=== PATIENT | male | born 1935 | race Caucasian/White ===

== ENCOUNTER 2018-11-18 21:08 | Inpatient (IN) | payer MEDICARE, BC ==
[~2018-11-18] VITALS: Ht 188 cm; Wt 117.9 kg
[2018-11-18 21:30] VITALS: BP 134/72
[2018-11-18 22:08] VITALS: BP 145/75
[2018-11-18 22:22] LABS: BASOPHILS 0.3 % (0-2); HEMATOCRIT 39.6 % (42.0-54.0); HEMOGLOBIN 13.1 g/dL (13.5-17.5); IMMATURE GRANULOCYTES 0.3 % (0-5); LYMPHOCYTES 16.5 % (15-50); MCHC 33.1 g/dL (31.0-37.0); MCV 93.6 fL (80.0-100.0); MEAN PLATELET VOLUME 10.8 fL (7.4-10.4); MONOCYTES 6.2 % (2-11); NEUTROPHILS 74.7 % (40-80); PLATELET COUNT 188 10x3/uL (130-400); RBC 4.23 10x6/uL (4.20-6.10); RDW 13.6 % (11.5-14.5); WBC 11.7 10x3/uL (4.8-10.8)
[2018-11-18 22:31] LABS: APPEARANCE CLEAR (CLEAR); BILIRUBIN NEGATIVE (NEGATIVE); COLOR YELLOW (YELLOW); GLUCOSE 50 mg/dL (NEGATIVE); KETONE NEGATIVE (NEGATIVE); NITRITE NEGATIVE (NEGATIVE); PROTEIN NEGATIVE (NEGATIVE); SPECIFIC GRAVITY 1.015 (1.005-1.020); UROBILINOGEN NORMAL (NORMAL)
[2018-11-18 22:35] LABS: ALBUMIN 3.7 g/dL (3.4-5.0); ANION GAP 13.5 mmol/L (8-16); BILIRUBIN - TOTAL 0.48 mg/dL (0.2-1.3); CALCIUM 8.9 mg/dL (8.5-10.1); CARBON DIOXIDE 28.2 mmol/L (21.0-32.0); CREATININE - SERUM 1.7 mg/dL (0.6-1.3); POTASSIUM - SERUM 4.7 mmol/L (3.5-5.1)
[2018-11-18 22:53] LABS: TROPONIN-I 0.104 ng/mL (0.000-0.060)
[2018-11-18 23:30] VITALS: BP 134/65
[2018-11-19] VITALS (8 sets, daily range): BP systolic 104–141; BP diastolic 54–87; BMI 33.4
--- NOTE | 2018-11-19 02:37 | NUR ---
TP RESTING NO DISTRESS OR PAIN NOTED. EMPTIED 200CC OF URINE FROM URINAL. BED LOW LOCKED POSITON, SIDE RAILS UP TIMES TWO, CALL LIGHT WITHIN REACH. WILL CONTINUE TO MONITOR FOR CHANGES.
--- NOTE | 2018-11-19 03:16 | NUR ---
PT LYING IN BED RESTING QUIETLY. NO COMPLAINTS AT THIS TIME, WILL CONTINUE TO MONITOR
--- NOTE | 2018-11-19 05:55 | NUR ---
400CC OF URINE OUTPUT NOTED AT THIS TIME. PT ALERT AND ORIENTED. NO CHANGES TO RESP STATUS. IV SITE WNL. PT HAS NO COMPLAINTS AT THIS TIME. WILL MONITOR
--- NOTE | 2018-11-19 11:46 | NUR ---
HALL CLERK AT BEDSIDE, ECHO COMPLETED
[2018-11-19 12:06] LABS: % SATURATION 16 % (15-55); IRON 49 ug/dl (35-150); TOTAL IRON BIND CAPACITY 304 ug/dl (260-445); UNSAT IRON BIND CAPACITY 255 ug/dl (150-375)
[2018-11-19 12:12] LABS: CKMB 2.9 U/L (0.0-3.6); CREATINE KINASE 43 UL (21-232)
[2018-11-19 12:13] LABS: TROPONIN-I 0.353 ng/mL (0.000-0.060)
--- NOTE | 2018-11-19 14:41 | MORECARE ---
CASE MANAGEMENT DISCHARGE SUMMARY PATIENT: ANITA VALADEZ UNIT: [id number] ADM DATE: 11/19/18 AGE: 82 : 33 SEX: M ROOM/BED: D.E14 AUTHOR: KATRINA HINES PHYSICIAN: REFERRING PHYSICIAN: SHANNAN NUR MD DATE OF SERVICE: 11/19/18 Discharge Plan Patient Name: ANITA VALADEZ Facility: [facility]:[place] : 1935 Planned Disposition: Anticipated Discharge Date: Discharge Date: Expected LOS: Initial Reviewer: [email or web address] Initial Review Date: 11/19/2018 Generated: 11/19/18 3:40 pm Comments DCP- Discharge Planning Updated by [email or web address]: Kalyn Armstrong on 11/19/18 1:[address] CM met with patient in ER to discuss dc needs/plans. Multiple family members in room and patient gives permission to speak in front of them. Patient lives @[facility] in a [place], alone. Reports that he is independent with his ADL's. PCP: None--would like to use Dr. Hameed, when he is available. [facility] States he just obtained Medicare Part D and would like to use [facility] for emergent meds. DME: walker Quad cane, maryb lela. Reports he does not use DME. Denies use of community services. Denies HHS:. States he drives his car to the dining room. Emergency Contact: Natasha Rogers (DTR) [phone], Devang Valadez (son) [phone]. Patient states he plans to return to [facility] and is unsure if he will require additional services upon discharge. Denies being hospitalized within the past 30 days. CM will assist as needed with dc needs/plans. Kalyn Armstrong RN, CM Patient Name: ANITA VALADEZ Page [id number] at 1441 All edits/amendments must be made on the electronic document DICTATION DATE: 11/19/18 1440 SPANISH SPEAKING BABYSITTER: LUZMA 11/19/18 1440 RPT#: [id number] DC DATE: STATUS: ADM IN [facility] [address] [place] [address] END OF REPORT
--- NOTE | 2018-11-19 14:51 | MORECARE ---
CASE MANAGEMENT DISCHARGE SUMMARY PATIENT: ANITA VALADEZ UNIT: [id number] ADM DATE: 11/19/18 AGE: 82 : 33 SEX: M ROOM/BED: D.E14 AUTHOR: KATRINA HINES PHYSICIAN: REFERRING PHYSICIAN: SHANNAN NUR MD DATE OF SERVICE: 11/19/18 Discharge Plan Patient Name: ANITA VALADEZ Facility: [facility]:[place] : 1935 Planned Disposition: Anticipated Discharge Date: Discharge Date: Expected LOS: Initial Reviewer: [email or web address] Initial Review Date: 11/19/2018 Generated: 11/19/18 3:51 pm Comments DCP- Discharge Planning Updated by [email or web address]: Kalyn Armstrong on 11/19/18 1:[address] CM met with patient in ER to discuss dc needs/plans. Multiple family members in room and patient gives permission to speak in front of them. Patient lives @[facility] in a [place], alone. Reports that he is independent with his ADL's. PCP: None--would like to use Dr. Hameed, when he is available. [facility] States he just obtained Medicare Part D and would like to use [facility] for emergent meds. DME: walker, Quad cane, grab bars. Reports he does not use DME. Denies use of community services. Denies HHS:. States he drives his car to the dining room. Emergency Contact: Natasha Rogers (DTR) [phone], Devang Valadez (son) [phone]. Patient states he plans to return to [facility] and is unsure if he will require additional services upon discharge. Denies being hospitalized within the past 30 days. CM will assist as needed with dc needs/plans. Kalyn Armstrong RN, CM DCPIA - Discharge Planning Initial Assessment Updated by [email or web address]: Kalyn Armstrong on 11/19/18 2:45 pm * Is the patient Alert and Oriented? Yes * How many steps to enter\exit or inside your home? * [facility] would like to use Dr. Hameed when available. * [facility] * Preadmission Environment Assisted Living * Facility Name [place] [facility], cottage * ADLs Independent * Equipment Cane Grab Bars Walker * Other Equipment NA * List name and contact numbers for known caregivers / representatives who currently or will assist patient after discharge: Natasha Rogers (Dtr) [phone] im Jn (son) [phone] * Community resources currently utilized None * Please name any agencies selected above. NA * Additional services required to return to the preadmission environment? No * Can the patient safely return to the preadmission environment? Yes * Has this patient been hospitalized within the prior 30 days at any hospital? No Last DP export: 11/19/18 1:40 p Patient Name: ANITA VALADEZ Page [id number] at 1451 All edits/amendments must be made on the electronic document DICTATION DATE: 11/19/181450 CARE TEAM COORDINATOR SCHEDULER: LUZMA 11/19/181450 RPT#: [id number] DC DATE: STATUS: ADM IN [facility] [address] [place] [address] END OF REPORT
--- NOTE | 2018-11-19 16:39 | EC ---
PATIENT:ANITA VALADEZ DATE OF SERVICE: 11/19/18 SEX: M MEDICAL RECORD: [id number] DATE OF : 31 LOCATION:[facility] AGE OF PATIENT: 82 ADMISSION DATE: 11/19/18 REFERRING PHYSICIAN: INTERPRETING PHYSICIAN: BETZAIDA STEVENS MD ECHOCARDIOGRAM REPORT ECHO CHARGES 4 ECHO COMPLETE Date: 11/19/18 CLINICAL DIAGNOSIS: CHF - H/O AVR ECHOCARDIOGRAPHIC MEASUREMENTS (adult normal given) AC root (d.<3.7cm) 2.7 cm LV Septum d (<1.2 cm> 1.3 cm Valve Excursion 0.8 cm LV Septum (systole) 2.0 cm Left Atria (s.<4.0cm> 4.4 cm LVPW d(<1.2cm) 1.2 cm RV (d.<2.3cm) 3.0 cm LVPW (sytole) 1.8 cm LV diastole(<5.6CM) 4.2 cm MV E-F(>70mm/sec) cm LV systole 2.1 cm LVOT Diameter 1.9 cm MV exc.(>10mm) cm Est.ejection fraction (50-75%) % DOPPLER: LVIT cm/sec A 163 cm/sec E 83.0 cm/sec LA cm/sec RVSP 24.0 mmHg LVOT 132 cm/sec AOP1/2T m/s Asc. Ao 203 cm/sec RVOT 63.0 cm/sec RA cm/sec PA 97.0 cm/sec AV Gradient Peak 16.4 mmHg AV Mean 7.0 mmHg AV Area 1.7 cm MV Gradient Peak 9.3 mmHg MV Mean 3.2 mmHg MV Area cm COMMENTS: Field Laboratory Operator: Lori BANSAL Slunk Skin Curer: 1 Dr. Stevens TAPE# PACS Pericardial Effusion N DATE OF SERVICE: 11/19/2018 FINDINGS: 1. Left ventricular chamber size is within normal limits. Left ventricular systolic function is normal. Overall ejection fraction is estimated at 65%. 2. Left atrium is enlarged at 4.4 cm. Right atrium and right ventricle chamber sizes are as well mildly dilated. 3. Valvular structures: Aortic valve is replaced with a tissue prosthesis with normal structure and function in this position. The remaining valvular structures have normal structure and motion. ECHOCARDIOGRAM REPORT [id number] ANITA VALADEZ 4. Doppler interrogation reveals no significant valvular insufficiency or stenosis. Pulmonary systolic pressure is estimated at 24 mmHg. 5. No evidence of pericardial effusion or left ventricular thrombus. TRANSINT:[id number] Voice Confirmation ID: [id number] DOCUMENT ID: [id number] BETZAIDA STEVENS MD at 1639 CC: [id number] DICTATION DATE: 11/19/18 1230 LINE MAINTENANCE: 11/19/18 1425 ADM IN [place] [id number] [place] [id number]
--- NOTE | 2018-11-19 19:20 | NUR ---
AWAKE AND ALERT OX3....SRX2 WITH BED IN LOW POSITION..CALL LIGHT IN PLACE DENIES CP DENIES ANY PAIN NO EDEMA NOTED IN ANY EXTREMITY WITH LCTA SLTY DEMINISHED IN LOWER BASES. BED REST CONFIRMED WITH PT AND URINAL USED URINE IS SLTY DARK.
--- NOTE | 2018-11-19 19:44 | NUR ---
PT SITTING UP ON THE SIDE OF THE BED. NO S/S OF ACUTE DISTRESS. CL IN PLACE.
--- NOTE | 2018-11-19 21:08 | NUR ---
ORDER FOR SCDs BILAT CONFIRED WITH CHARGE NURSE TO NOT PUT ON CURRENT LEG WITH ACTIVE DVT
[2018-11-19] MEDS ORDERED: NOVOLOG100 UNIT/1 SQ (22:04)
[2018-11-19] MEDS ORDERED: OMEPRAZOLE20 M1 PO (22:10)
[2018-11-19] MEDS ORDERED: PRINIVIL20 MG PO (22:11)
[2018-11-19] MEDS ORDERED: LIPITOR10 MG PO (22:12)
[2018-11-19] MEDS ORDERED: TRICOR48 MG PO (22:13)
[2018-11-19] MEDS ORDERED: NEURONTIN 300300 MG PO (22:14)
[2018-11-19] MEDS ORDERED: BAYER CHEWABLE81 MG PO (22:15)
[2018-11-19] MEDS ORDERED: VITAMIN D2000 UNIT PO (22:16)
[2018-11-19] MEDS ORDERED: VITAMIN B-121000 MCG PO (22:17)
[2018-11-19] MEDS ORDERED: SOLIQUA 100 UNIT3 ML SQ (22:37)
[2018-11-20] VITALS (7 sets, daily range): BP systolic 100–132; BP diastolic 59–80; BMI 33.4
--- NOTE | 2018-11-20 00:30 | NUR ---
AROUSES AND DENIES NEEDS BED LOW WITH SRX2 AND CALL LIGHT IN REACH
--- NOTE | 2018-11-20 04:28 | NUR ---
RESTING IN BED RESP UNLABORED NO APPARENT DISTRESS CALL LIGHT IN REACH
[2018-11-20 05:05] LABS: BASOPHILS 0.1 % (0-2); EOSINOPHILS 0.8 % (0-7); HEMATOCRIT 35.7 % (42.0-54.0); HEMOGLOBIN 11.9 g/dL (13.5-17.5); IMMATURE GRANULOCYTES 0.2 % (0-5); LYMPHOCYTES 22.9 % (15-50); MCH 30.4 pg (26.0-34.0); MCHC 33.3 g/dL (31.0-37.0); MONOCYTES 5.6 % (2-11); NEUTROPHILS 70.4 % (40-80); PLATELET COUNT 164 10x3/uL (130-400); RBC 3.92 10x6/uL (4.20-6.10); RDW 13.6 % (11.5-14.5)
[2018-11-20 05:09] LABS: MCV 91.1 fL (80.0-100.0); WBC 14.8 10x3/uL (4.8-10.8)
[2018-11-20 05:41] LABS: ALBUMIN 3.2 g/dL (3.4-5.0); ALKALINE PHOSPHATASE 66 U/L (46-116); ALT (SGPT) 17 U/L (10-68); BILIRUBIN - TOTAL 0.52 mg/dL (0.2-1.3); CALC OSMOLALITY 283 mosm/kg (275-300); CALCIUM 8.6 mg/dL (8.5-10.1); CHLORIDE - SERUM 100 mmol/L (98-107); CKMB 3.5 U/L (0.0-3.6); CREATINE KINASE 76 UL (21-232); CREATININE - SERUM 1.6 mg/dL (0.6-1.3); GLUCOSE 226 mg/dL (74-106); POTASSIUM - SERUM 4.1 mmol/L (3.5-5.1); PROTEIN - SERUM 6.5 g/dL (6.4-8.2); SODIUM 134 mmol/L (136-145); UREA NITROGEN 38 mg/dL (7-18); eGFR NON AFRICAN AMERICAN 44 mL/min (90-120)
[2018-11-20 05:43] LABS: TROPONIN-I 0.425 ng/mL (0.000-0.060)
--- NOTE | 2018-11-20 08:06 | NUR ---
PT ALERT X 4. BREATH SOUNDS CLEAR BILAT, 3L O2 PER NC, REPORTS SOB, DRY PERSISTENT COUGH. TELEMETRY IN PLACE. IV TO LEFT AC, SALINE LOCKED, NO REDNESS OR SWELLING NOTED, DRESSING CLEAN DRY AND INTACT. PT REPORTS NO PAIN ONLY SOME DISCOMFORT WHEN UP. LLE SWOLLEN AND FIRM. TRACE EDEMA TO RLE. BED LOW, CALL LIGHT IN REACH, NO OTHER NEEDS AT THIS TIME.
[2018-11-20 09:19] LABS: FOLATE (FOLIC ACID) - SERUM 16.6 ng/mL (>3.0)
--- NOTE | 2018-11-20 12:14 | MORECARE ---
CASE MANAGEMENT DISCHARGE SUMMARY PATIENT: ANITA VALADEZ UNIT: [id number] ADM DATE: 11/19/18 AGE: 82 : 33 SEX: M ROOM/BED: D.2238 AUTHOR: FLORADOC PHYSICIAN: REFERRING PHYSICIAN: SHANNAN NUR MD DATE OF SERVICE: 11/20/18 Discharge Plan Patient Name: ANITA VALADEZ Facility: [facility]:[place] : 1935 Planned Disposition: Anticipated Discharge Date: Discharge Date: Expected LOS: Initial Reviewer: [email or web address] Initial Review Date: 11/19/2018 Generated: 11/20/18 1:13 pm DCP- Discharge Planning Updated by [email or web address]: Kalyn Armstrong on 11/19/18 1:[address] CM met with patient in ER to discuss dc needs/plans. Multiple family members in room and patient gives permission to speak in front of them. Patient lives @[facility] in [facility], alone. Reports that he is independent with his ADL's. PCP: None--would like to use Dr. Hameed, when he is available. [facility] States he just obtained Medicare Part D and would like to use [facility] for emergent meds. DME: walker Quad cane, maryb bars. Reports he does not use DME. Denies use of community services. Denies HHS:. States he drives his car to the dining room. Emergency Contact: Natasha Rogers (DTR) [phone], Devang Valadez (son) [phone]. Patient states he plans to return to [facility] and is unsure if he will require additional services upon discharge. Denies being hospitalized within the past 30 days. CM will assist as needed with dc needs/plans. Kalyn Armstrong RN, CM DCPIA - Discharge Planning Initial Assessment Updated by [email or web address]: Kalyn Armstrong on 11/19/18 2:45 pm * Is the patient Alert and Oriented? Yes * How many steps to enter\exit or inside your home? * [facility]-- would like to use Dr. Hameed when available. * [facility] for [facility] * Preadmission Environment Assisted Living * Facility Name [facility], [place] * ADLs Independent * Equipment Cane Grab Bars Walker * Other Equipment NA * List name and contact numbers for known caregivers / representatives who currently or will assist patient after discharge: Natasha Rogers (Dtr) [phone] im Jn (son) [phone] * Community resources currently utilized None * Please name any agencies selected above. NA * Additional services required to return to the preadmission environment? No * Can the patient safely return to the preadmission environment? Yes * Has this patient been hospitalized within the prior 30 days at any hospital? No Last DP export: 11/19/18 1:51 p Patient Name: ANITA VALADEZ Page [phone] at 1214 All edits/amendments must be made on the electronic document DICTATION DATE: 11/20/181212 EDGE GLUER: LUZMA 11/20/181212 RPT#: [id number] DC DATE: STATUS: ADM IN [facility] [address] [place] [address] END OF REPORT
[2018-11-21 04:05] VITALS: BP 132/80
[2018-11-21 05:38] LABS: BASOPHILS 0.4 % (0-2); EOSINOPHILS 3.4 % (0-7); HEMATOCRIT 36.9 % (42.0-54.0); HEMOGLOBIN 12.4 g/dL (13.5-17.5); IMMATURE GRANULOCYTES 0.3 % (0-5); LYMPHOCYTES 26.6 % (15-50); MCH 30.7 pg (26.0-34.0); MCHC 33.6 g/dL (31.0-37.0); MCV 91.3 fL (80.0-100.0); MEAN PLATELET VOLUME 10.7 fL (7.4-10.4); NEUTROPHILS 64.3 % (40-80); PLATELET COUNT 153 10x3/uL (130-400); RBC 4.04 10x6/uL (4.20-6.10); RDW 13.8 % (11.5-14.5)
[2018-11-21 05:42] LABS: WBC 10.5 10x3/uL (4.8-10.8)
[2018-11-21 06:08] LABS: ANION GAP 15.7 mmol/L (8-16); CALCIUM 9.2 mg/dL (8.5-10.1); CARBON DIOXIDE 27.4 mmol/L (21.0-32.0); CREATININE - SERUM 1.5 mg/dL (0.6-1.3); POTASSIUM - SERUM 4.1 mmol/L (3.5-5.1)
--- NOTE | 2018-11-21 06:29 | NUR ---
PATIENT A&O ABLE TO VOICE NEEDS AND WANTS TO STAFF. IV TON LEFT AC INTACT, FSBS 177 AT HS AND 84 THIS AM. BILATERAL PE AND (2) DVT LEFT LEG FEMER AND POPLATILL. ON BEDREST WITH BRP. TELEMETRY IN PLACE RAN 92 SR THIS SHIFT. STOOL SAMPLE SENT TO LAB.
[2018-11-21 08:51] VITALS: BP 133/84
--- NOTE | 2018-11-21 10:17 | NUR ---
PATIENT IN BED, SKIN W/D TO TOUCH, COLOR PINK, RESP. REGULAR AND EVEN AT 20. BILATERAL EDEMA NOTED AND LEGS ELEVATED. PATIENT CON'T. TO COUGH NO PRODUCTIVELY. DENIES ANY C/O PAIN OR DISCOMFORT WHEN ASKED. C/L WITHIN REACH AND SR'S UP X'S 2.+ PEDAL PULSES IN BILATERAL EXTREMITIES.
[2018-11-21 10:22] LABS: ACLA - IGG AB <9 GPL U/mL (0-14); ACLA - IGM AB <9 MPL U/mL (0-12)
--- NOTE | 2018-11-21 15:04 | NUR ---
PATIENT IN BED DAUGHTER AT BEDSIDE ALSO VISITORS. PATIENT C/O LEFT KNEE PAIN OFFERED PAIN PILL BUT DECLINED. C/L WITHIN REACH AND SR'S UP X'S 2.
[2018-11-21 17:45] VITALS: BP 114/61
[2018-11-21 20:00] VITALS: BP 115/59
--- NOTE | 2018-11-21 21:00 | NUR ---
PT SITTING UP IN BED, NO SIGNS OF DISTRESS. ALERT AND ORIENTED, FAMILY AT BEDSIDE. O2 3L/NC. HR 88 SR PER TELE. BS 245, COVERED PER SS. STATES NO OTHER NEEDS OR COMPLAINTS AT THIS TIME. CL IN REACH, WILL CONTINUE TO MONITOR
[2018-11-21 23:54] VITALS: Ht 188 cm; Wt 117.9 kg
[2018-11-22] VITALS: BP 126/63
[2018-11-22 03:00] VITALS: BP 132/67
[2018-11-22 06:57] LABS: ANION GAP 14.7 mmol/L (8-16); CALCIUM 9.2 mg/dL (8.5-10.1); CARBON DIOXIDE 25.4 mmol/L (21.0-32.0); CREATININE - SERUM 1.6 mg/dL (0.6-1.3); POTASSIUM - SERUM 4.1 mmol/L (3.5-5.1)
[2018-11-22 07:23] LABS: HEMATOCRIT 39.8 % (42.0-54.0); HEMOGLOBIN 13.3 g/dL (13.5-17.5); LYMPHOCYTES 30.7 % (15-50); MCH 30.6 pg (26.0-34.0); MCHC 33.4 g/dL (31.0-37.0); MCV 91.7 fL (80.0-100.0); MEAN PLATELET VOLUME 12.4 fL (7.4-10.4); PLATELET COUNT 163 10x3/uL (130-400); RBC 4.34 10x6/uL (4.20-6.10); RDW 13.6 % (11.5-14.5)
[2018-11-22 08:57] VITALS: BP 134/64
--- NOTE | 2018-11-22 10:26 | NUR ---
GRANT IN PHARMACY CALLED AND NOTIFIED OF NEURONTIN COUNT WOULD NOT ACCOEPT COUNT OF 94 THAT WAS VERIFIED WITH ANOTHER NURSE.
[2018-11-22 11:11] LABS: PROTEIN S - FREE 104 % (57-157); PROTEIN S - FREE 93 % (57-157); PROTEIN S - FUNCTIONAL 71 % (63-140); PROTEIN S - TOTAL 87 % (60-150); PROTEIN S - TOTAL 88 % (60-150)
--- NOTE | 2018-11-22 11:49 | NUR ---
ALERT AND ORIENTED WITH FAMILY PRESENT. TELEMETRY INTACT. PERIPHERAL PULSES NOTED X4 W/0 ANY EDEMA. O2 2 LITERS N/C WITH CAP REFILL < 3. NO ABNORMAL BLEEDING NOTED. BS 261 WITH 16 UNITS GIVEN PER S/S. ENCOURAGED TO USE CALL LIGHT FOR ASSIST AND VERBALIZED UNDERSTANDNG
[2018-11-22 12:55] VITALS: BP 113/61
[2018-11-22 14:13] LABS: LUPUS - INTERPRETATION Comment: (()); LUPUS - dRVVT 40.2 sec (0.0-47.0); PTT-LA 44.5 sec (0.0-51.9)
--- NOTE | 2018-11-22 19:45 | NUR ---
PT SITTING UP IN BED, NO SIGNS OF DISTRESS. ALERT AND ORIENTED. FAMILY AT BEDSIDE. STATES NO PAIN AT THIS TIME. DENIES NEEDS. CL IN REACH, WILL CONTINUE TO MONITOR
[2018-11-22 20:00] VITALS: BP 126/64
[2018-11-23] VITALS: BP 141/103
[2018-11-23 03:00] VITALS: BP 154/77
[2018-11-23 06:35] LABS: BASOPHILS 0.6 % (0-2); EOSINOPHILS 5.1 % (0-7); HEMATOCRIT 37.9 % (42.0-54.0); HEMOGLOBIN 12.4 g/dL (13.5-17.5); IMMATURE GRANULOCYTES 0.3 % (0-5); LYMPHOCYTES 26.7 % (15-50); MCH 30.5 pg (26.0-34.0); MCHC 32.7 g/dL (31.0-37.0); MCV 93.3 fL (80.0-100.0); MEAN PLATELET VOLUME 10.8 fL (7.4-10.4); MONOCYTES 6.1 % (2-11); NEUTROPHILS 61.2 % (40-80); PLATELET COUNT 169 10x3/uL (130-400); RBC 4.06 10x6/uL (4.20-6.10); RDW 13.6 % (11.5-14.5); WBC 7.8 10x3/uL (4.8-10.8)
[2018-11-23 06:51] LABS: ANION GAP 12.8 mmol/L (8-16); CALCIUM 8.8 mg/dL (8.5-10.1); CARBON DIOXIDE 27.3 mmol/L (21.0-32.0); CREATININE - SERUM 1.4 mg/dL (0.6-1.3); POTASSIUM - SERUM 4.1 mmol/L (3.5-5.1)
[2018-11-23 09:21] VITALS: BP 125/58
--- NOTE | 2018-11-23 11:08 | NUR ---
ALERT AND ORIENTED WITH TELEMETRY SR 96. PROMETHAZINE WITH CODEINE GIVEN FOR COUGH AND EFFECTIVE. UP AMBULATING IN HALLWAY WITH PULSE OX 92% WITHOUT O2 AND TOLERATING WELL. CHANGING O2 TO PRN <90% OR SOB.LT. A/C SL. LUNGS CTA.
--- NOTE | 2018-11-23 11:28 | MORECARE ---
CASE MANAGEMENT DISCHARGE SUMMARY PATIENT: ANITA VALADEZ UNIT: [id number] ADM DATE: 11/19/18 AGE: 82 : 33 SEX: M ROOM/BED: D.2238 AUTHOR: FLORA,DOC PHYSICIAN: REFERRING PHYSICIAN: SHANNAN NUR MD DATE OF SERVICE: 11/23/18 Discharge Plan Patient Name: ANITA VALADEZ Facility: [facility]:[place] : 1935 Planned Disposition: Anticipated Discharge Date: Discharge Date: Expected LOS: Initial Reviewer: [email or web address] Initial Review Date: 11/19/2018 Generated: 11/23/18 12:28 pm Comments DCP- Discharge Planning Updated by [email or web address]: Irmasylvia Simpson on 11/23/18 10:[address] PATIENT AND FAMILY DISCUSSED ACUTE REHAB CONSULT PATIENT IS WEAK AND REQUIRES MUTIPLE PEROIDS OF REST WHEN AMBULATING. SPOKE WITH NURSE AND MICA SPLITTER. OT CONSULT AND REHAB PRESCREENING ORDERED. FAMILY ALSO HAD QUESTIONS REGARDING COVERAGE FOR XARELTO. HE OBTAINS SOME OF HIS MEDICATIONS FROM THE [place] IN [place] AND WILL OBTAIN SOME FROM [facility]/ [employer]. HE HAS A NEW MEDICARE D PLAN. CM EXPLAINED I CANNOT TELL THEM IF IT IS COVERED I CANNOT ACCESS HIS PLAN. HIS PHARMACY IS CLOSED TODAY. I RECOMMENED THE FAMILY CALL AND ASK THE PHARMACIST AT [facility]. PATIENT'S PRIMARY AT [facility] IS DR STEPHANIE BAILEY.. DCP- Discharge Planning Updated by [id number]: Kalyn Armstrong on 11/19/18 1:[address] CM met with patient in ER to discuss dc needs/plans. Multiple family members in room and patient gives permission to speak in front of them. Patient lives @[facility] in a [place], alone. Reports that he is independent with his ADL's. PCP: None--would like to use Dr. Hameed, when he is available. Pharmacy: [place]. States he just obtained Medicare Part D and would like to use [facility] for emergent meds. DME: walker, Quad cane, grab bars. Reports he does not use DME. Denies use of community services. Denies HHS:. States he drives his car to the dining room. Emergency Contact: Natasha Rogers (DTR) [phone], Devang Valadez (son) [phone]. Patient states he plans to return to [facility] and is unsure if he will require additional services upon discharge. Denies being hospitalized within the past 30 days. CM will assist as needed with dc needs/plans. Kalyn Armstrong RN CM DCPIA - Discharge Planning Initial Assessment Updated by [email or web address]: Kalyn Armstrong on 11/19/18 2:45 pm * Is the patient Alert and Oriented? Yes * How many steps to enter\exit or inside your home? * [facility]-- would like to use Dr. Hameed when available. * [facility] * Preadmission Environment Assisted Living * Facility Name [facility] * ADLs Independent * Equipment Cane Grab Bars Walker * Other Equipment NA * List name and contact numbers for known caregivers / representatives who currently or will assist patient after discharge: Natasha Rogers (Dtr) [phone] norberto Valadez (son) [phone] * Community resources currently utilized None * Please name any agencies selected above. NA * Additional services required to return to the preadmission environment? No * Can the patient safely return to the preadmission environment? Yes * Has this patient been hospitalized within the prior 30 days at any hospital? No Last DP export: 11/20/18 11:14 a Patient Name: ANITA VALADEZ Page [phone] at 1128 All edits/amendments must be made on the electronic document DICTATION DATE: 11/23/181127 SALESPERSON FLYING SQUAD: LUZMA 11/23/18 112 RPT#: [id number] DC DATE: STATUS: ADM IN [facility] [address] [place] [address] END OF REPORT
--- NOTE | 2018-11-23 12:25 | MORECARE ---
CASE MANAGEMENT DISCHARGE SUMMARY PATIENT: ANITA VALADEZ UNIT: [id number] ADM DATE: 11/19/18 AGE: 82 : 33 SEX: M ROOM/BED: D.2238 AUTHOR: FLORADOC PHYSICIAN: REFERRING PHYSICIAN: SHANNAN NUR MD DATE OF SERVICE: 11/23/18 Discharge Plan Patient Name: ANITA VALADEZ [facility] [facility] 1935 Planned Disposition: Anticipated Discharge Date: Discharge Date: Expected LOS: Initial Reviewer: [email or web address] Initial Review Date: 11/19/2018 Generated: 11/23/18 1:25 pm Comments DCP- Discharge Planning Updated by [email or web address]: Irma Simpson on 11/23/18 11:[address] VALVERDE ADVISED PATIENT WILL NEED A NEBULIZER AT DISCHARGE W/ DUONEB 4 TIMES A DAY. HE ALSO REQUEST FOR PATIENT TO BE CHECKED FOR OXYGEN REQUIREMENTS. DCP- Discharge Planning Updated by [email or web address]: Irma Simpson on 11/23/18 10:[address] PATIENT AND FAMILY DISCUSSED ACUTE REHAB CONSULT PATIENT IS WEAK AND REQUIRES MUTIPLE PEROIDS OF REST WHEN AMBULATING. SPOKE WITH NURSE AND RELAY MAN. OT CONSULT AND REHAB PRESCREENING ORDERED. FAMILY ALSO HAD QUESTIONS REGARDING COVERAGE FOR XARELTO. HE OBTAINS SOME OF HIS MEDICATIONS FROM THE [place] IN [place] AND WILL OBTAIN SOME FROM [facility]/ [employer]. HE HAS A NEW MEDICARE D PLAN. CM EXPLAINED I CANNOT TELL THEM IF IT IS COVERED I CANNOT ACCESS HIS PLAN. HIS PHARMACY IS CLOSED TODAY. I RECOMMENED THE FAMILY CALL AND ASK THE PHARMACIST AT [facility]. PATIENT'S PRIMARY AT [facility] IS DR STEPHANIE BAILEY.. DCP- Discharge Planning Updated by [id number]: Kalyn Armstrong on 11/19/18 1:[address] CM met with patient in ER to discuss dc needs/plans. Multiple family members in room and patient gives permission to speak in front of them. Patient lives @[facility] in a cottage, alone. Reports that he is independent with his ADL's. PCP: None--would like to use Dr. Hameed, when he is available. Pharmacy: [place]. States he just obtained Medicare Part D and would like to use [facility] for emergent meds. DME: walker, Quad cane, grab bars. Reports he does not use DME. Denies use of community services. Denies HHS:. States he drives his car to the dining room. Emergency Contact: Natasha Rogers (DTR) [phone], Devang Valadez (son) [phone]. Patient states he plans to return to [facility] and is unsure if he will require additional services upon discharge. Denies being hospitalized within the past 30 days. CM will assist as needed with dc needs/plans. Kalyn Armstrong RN CM DCPIA - Discharge Planning Initial Assessment Updated by [email or web address]: Kalyn Armstrong on 11/19/18 2:45 pm * Is the patient Alert and Oriented? Yes * How many steps to enter\exit or inside your home? * [facility]-- would like to use Dr. Hameed when available. * [facility] * Preadmission Environment Assisted Living * Facility Name [facility] * ADLs Independent * Equipment Cane Grab Bars Walker * Other Equipment NA * List name and contact numbers for known caregivers / representatives who currently or will assist patient after discharge: Natasha Rogers (Dtr) [phone] im Jn (son) [phone] * Community resources currently utilized None * Please name any agencies selected above. NA * Additional services required to return to the preadmission environment? No * Can the patient safely return to the preadmission environment? Yes * Has this patient been hospitalized within the prior 30 days at any hospital? No Last DP export: 11/23/18 10:28 a Patient Name: ANITA VALADEZ Page [phone] at 1225 All edits/amendments must be made on the electronic document DICTATION DATE: 11/23/181223 CERT PHARMACY TECH: LUZMA 11/23/181223 RPT#: [id number] DC DATE: STATUS: ADM IN [facility] [address] [place] [address] END OF REPORT
--- NOTE | 2018-11-23 12:41 | NUR ---
Rehab Note- Acute Inpatient Rehab prescreen order received. The patient is a good inpatient acute rehab candidate and per CM notes is in agreeance to an inpatient acute rehab stay prior to being discharged home. When medically stable and ready for discharge from the acute hospital. Will follow at this time. Thank you for this referral! Helen Davis RN Clinical Liaison, [facility] Rehab
[2018-11-23 16:56] VITALS: BP 114/57
[2018-11-23 19:00] VITALS: BP 124/90
--- NOTE | 2018-11-23 20:00 | NUR ---
PT SITTING UP IN BED, NO SIGNS OF DISTRESS. ALERT AND ORIENTED. GAVE PROMETHAZINE W/ CODEINE FOR COUGH. BS 169, GAVE 8 UNITS PER SS. GAVE 40 UNITS SCHEDULED LANTUS. IV LEFT AC SL, NO REDNESS OR SWELLING AT INSERTION SITE, FLUSHES WELL, DRESSING CDI. NO OTHER NEEDS OR COMPLAINTS AT THIS TIME. CL IN REACH, WILL CONTINUE TO MONITOR
[2018-11-24] VITALS: BP 123/63
--- NOTE | 2018-11-24 00:30 | NUR ---
NOTIFIED BY MECHANICAL MANAGER THAT PT O2 85% WHILE SLEEPING. HAD PT WAKE UP AND TAKE DEEP BREATHS. O2 88%. PLACED ON 1L/NC, 02 CAME UP TO 92%. BREATHING EVEN, UNLABORED. WILL CONTINUE TO MONITOR
--- NOTE | 2018-11-24 02:39 | NUR ---
PT LYING IN BED ASLEEP, BREATHING EVEN AND UNLABORED. NO SIGNS OF DISTRESS. CL IN REACH, WILL CONTINUE TO MONITOR
[2018-11-24 03:00] VITALS: BP 135/54
[2018-11-24 06:02] LABS: BASOPHILS 0.6 % (0-2); EOSINOPHILS 4.6 % (0-7); HEMATOCRIT 37.9 % (42.0-54.0); HEMOGLOBIN 12.4 g/dL (13.5-17.5); IMMATURE GRANULOCYTES 0.4 % (0-5); LYMPHOCYTES 25.1 % (15-50); MCH 30.5 pg (26.0-34.0); MCHC 32.7 g/dL (31.0-37.0); MCV 93.1 fL (80.0-100.0); MEAN PLATELET VOLUME 10.7 fL (7.4-10.4); MONOCYTES 5.8 % (2-11); NEUTROPHILS 63.5 % (40-80); PLATELET COUNT 170 10x3/uL (130-400); RBC 4.07 10x6/uL (4.20-6.10); RDW 13.8 % (11.5-14.5); WBC 9.4 10x3/uL (4.8-10.8)
--- NOTE | 2018-11-24 06:18 | NUR ---
BS 168, NO COVERAGE PER SS. DENIES NEEDS. CL IN REACH, WILL CONT TO MONITOR
[2018-11-24 06:21] LABS: ANION GAP 14.2 mmol/L (8-16); CALCIUM 9.2 mg/dL (8.5-10.1); CARBON DIOXIDE 26.2 mmol/L (21.0-32.0); CREATININE - SERUM 1.6 mg/dL (0.6-1.3); POTASSIUM - SERUM 4.4 mmol/L (3.5-5.1)
[2018-11-24 08:25] VITALS: BP 175/70
--- NOTE | 2018-11-24 10:13 | NUR ---
ALERT AND ORIENTED WITH LUNGS CTA. HRRR TELEMETRY INTACT. UP AMBULATING IN HALLWAY WITH PULSE OX 91% WITH R/WALKER.S/L TO LEFT A/C WITH NO S/S OF INFECTION/INFILTRATION. ENCOURAGED TO USE CALL LIGHT FOR ASSIST.
--- NOTE | 2018-11-24 11:47 | NUR ---
Rehab Note- Visited with the patient and his daughter. He is doing well physically and wants to discharge home, that he may go home with his daughter for a few days. Informed GERONIMO Cheng of patient and daughter's decision. Thank you for this referral! Helen Davis RN CLinical Liaison, [facility] Rehab
--- NOTE | 2018-11-24 12:10 | MORECARE ---
CASE MANAGEMENT DISCHARGE SUMMARY PATIENT: ANITA VALADEZ UNIT: [id number] ADM DATE: 11/19/18 AGE: 82 : 33 SEX: M ROOM/BED: D.2238 AUTHOR: FLORADOC PHYSICIAN: REFERRING PHYSICIAN: SHANNAN NUR MD DATE OF SERVICE: 11/24/18 Discharge Plan Patient Name: ANITA VALADEZ [facility] [facility] 1935 Planned Disposition: Anticipated Discharge Date: Discharge Date: Expected LOS: Initial Reviewer: [id number] Initial Review Date: 11/19/2018 Generated: 11/24/18 1:10 pm Comments DCP- Discharge Planning Updated by [id number]: Irma Simpson on 11/23/18 11:[address] VALVERDE ADVISED PATIENT WILL NEED A NEBULIZER AT DISCHARGE W/ DUONEB 4 TIMES A DAY. HE ALSO REQUEST FOR PATIENT TO BE CHECKED FOR OXYGEN REQUIREMENTS. DCP- Discharge Planning Updated by [id number]: Irma Simpson on 11/23/18 10:[address] PATIENT AND FAMILY DISCUSSED ACUTE REHAB CONSULT PATIENT IS WEAK AND REQUIRES MUTIPLE PEROIDS OF REST WHEN AMBULATING. SPOKE WITH NURSE AND AGRICULTURAL EQUIPMENT SALES MANAGER. OT CONSULT AND REHAB PRESCREENING ORDERED. FAMILY ALSO HAD QUESTIONS REGARDING COVERAGE FOR XARELTO. HE OBTAINS SOME OF HIS MEDICATIONS FROM THE HI IN [place] AND WILL OBTAIN SOME FROM [facility]/ [employer]. HE HAS A NEW MEDICARE D PLAN. CM EXPLAINED I CANNOT TELL THEM IF IT IS COVERED I CANNOT ACCESS HIS PLAN. HIS PHARMACY IS CLOSED TODAY. I RECOMMENED THE FAMILY CALL AND ASK THE PHARMACIST AT [facility]. PATIENT'S PRIMARY AT [facility] IS DR STEPHANIE BAILEY.. DCP- Discharge Planning Updated by [id number]: Kalyn Armstrong on 11/19/18 1:[address] CM met with patient in ER to discuss dc needs/plans. Multiple family members in room and patient gives permission to speak in front of them. Patient lives [facility] in a [place], alone. Reports that he is independent with his ADL's. PCP: None--would like to use Dr. Hameed, when he is available. Pharmacy: [place]. States he just obtained Medicare Part D and would like to use [facility] for emergent meds. DME: walker, Quad cane, grab bars. Reports he does not use DME. Denies use of community services. Denies HHS:. States he drives his car to the dining room. Emergency Contact: Natasha Rogers (DTR) [phone], Devang Valadez (son) [phone]. Patient states he plans to return to [facility] and is unsure if he will require additional services upon discharge. Denies being hospitalized within the past 30 days. CM will assist as needed with dc needs/plans. Kalyn Armstrong RN CM DCPIA - Discharge Planning Initial Assessment Updated by [id number]: Kalyn Armstrong on 11/19/18 2:45 pm * Is the patient Alert and Oriented? Yes * How many steps to enter\exit or inside your home? * [facility] would like to use Dr. Hameed when available. * [facility] * Preadmission Environment Assisted Living * Facility Name [facility] * ADLs Independent * Equipment Cane Grab Bars Walker * Other Equipment NA * List name and contact numbers for known caregivers / representatives who currently or will assist patient after discharge: Natasha Rogers (Dtr) [phone] im Jn (son) [phone] * Community resources currently utilized None * Please name any agencies selected above. NA * Additional services required to return to the preadmission environment? No * Can the patient safely return to the preadmission environment? Yes * Has this patient been hospitalized within the prior 30 days at any hospital? No External Providers External Provider: [facility] Next Contact Date: Service Request Date: Service Type: Resolution: Reviewer: Comments: Coverage Notice Reviewer: [id number] Briana Montero Notice Issued Date-Time: 11/24/2018 12:08 Notice Type: IM Discharge Notice Notice Delivered To: Patient Relationship to Patient: Self Doorperson Or Luggage Porter Name: Delivery Method: HAND - Hand Delivered Ayesha Days: Prior Verbal Notification: Recipient Understood Notice: Yes Recipient Signature: Yes Med Rec Note Co-signed by Attending: Coverage Notice Comment: IMM explained, signed, copy given, original placed in MR Last DP export: 11/23/18 11:25 a Patient Name: ANITA VALADEZ Page [id number] at 1210 All edits/amendments must be made on the electronic document DICTATION DATE: 11/24/181209 ROBOT PROGRAMMER: LUZMA 11/24/181209 RPT#: [id number] DC DATE: STATUS: ADM IN [facility] [address] [place] [address] END OF REPORT
--- NOTE | 2018-11-24 12:19 | MORECARE ---
CASE MANAGEMENT DISCHARGE SUMMARY PATIENT: ANITA VALADEZ UNIT: [id number] ADM DATE: 11/19/18 AGE: 82 : 33 SEX: M ROOM/BED: D.2238 AUTHOR: FLORADOC PHYSICIAN: REFERRING PHYSICIAN: SHANNAN NUR MD DATE OF SERVICE: 11/24/18 Discharge Plan Patient Name: ANITA VALADEZ [facility] [facility] 1935 Planned Disposition: Anticipated Discharge Date: Discharge Date: Expected LOS: Initial Reviewer: [email or web address] Initial Review Date: 11/19/2018 Generated: 11/24/18 1:19 pm Comments DCP- Discharge Planning Updated by [id number]: Irma Simpson on 11/23/18 11:[address] VALVERDE ADVISED PATIENT WILL NEED A NEBULIZER AT DISCHARGE W/ DUONEB 4 TIMES A DAY. HE ALSO REQUEST FOR PATIENT TO BE CHECKED FOR OXYGEN REQUIREMENTS. DCP- Discharge Planning Updated by [id number]: Irma Simpson on 11/23/18 10:[address] PATIENT AND FAMILY DISCUSSED ACUTE REHAB CONSULT PATIENT IS WEAK AND REQUIRES MUTIPLE PEROIDS OF REST WHEN AMBULATING. SPOKE WITH NURSE AND PRETZEL COOKER. OT CONSULT AND REHAB PRESCREENING ORDERED. FAMILY ALSO HAD QUESTIONS REGARDING COVERAGE FOR XARELTO. HE OBTAINS SOME OF HIS MEDICATIONS FROM THE [place] IN [place] [facility] AND WILL OBTAIN SOME FROM [facility]/ [employer]. HE HAS A NEW MEDICARE D PLAN. CM EXPLAINED I CANNOT TELL THEM IF IT IS COVERED I CANNOT ACCESS HIS PLAN. HIS PHARMACY IS CLOSED TODAY. I RECOMMENED THE FAMILY CALL AND ASK THE PHARMACIST AT [facility]. PATIENT'S PRIMARY AT [facility] IS DR STEPHANIE BAILEY.. DCP- Discharge Planning Updated by [id number]: Kalyn Armstrong on 11/19/18 1:[address] CM met with patient in ER to discuss dc needs/plans. Multiple family members in room and patient gives permission to speak in front of them. Patient lives @[facility] in a cottage, alone. Reports that he is independent with his ADL's. PCP: None--would like to use Dr. Hameed, when he is available. Pharmacy[place]. States he just obtained Medicare Part D and would like to use [facility] for emergent meds. DME: walker, Quad cane, grab bars. Reports he does not use DME. Denies use of community services. Denies HHS:. States he drives his car to the dining room. Emergency Contact: Natasha Rogers (DTR) [phone], Devang Valadez (son) [phone]. Patient states he plans to return to [facility] and is unsure if he will require additional services upon discharge. Denies being hospitalized within the past 30 days. CM will assist as needed with dc needs/plans. Kalyn Armstrong RN CM DCPIA - Discharge Planning Initial Assessment Updated by [id number]: Kalyn Armstrong on 11/19/18 2:45 pm * Is the patient Alert and Oriented? Yes * How many steps to enter\exit or inside your home? * [facility]-- would like to use Dr. Hameed when available. * [facility] for urgent meds * Preadmission Environment Assisted Living * Facility Name [facility] * ADLs Independent * Equipment Cane Grab Bars Walker * Other Equipment NA * List name and contact numbers for known caregivers / representatives who currently or will assist patient after discharge: Natasha Rogers (Dtr) [phone] im Jn (son) [phone] * Community resources currently utilized None * Please name any agencies selected above. NA * Additional services required to return to the preadmission environment? No * Can the patient safely return to the preadmission environment? Yes * Has this patient been hospitalized within the prior 30 days at any hospital? No External Providers [facility] Next Contact Date: Service Request Date: Service Type: Resolution: Reviewer: Comments: Coverage Notice Reviewer: [email or web address] Briana Montero Notice Issued Date-Time: 11/24/2018 12:08 Notice Type: IM Discharge Notice Notice Delivered To: Patient Relationship to Patient: Self Technical Stenographer Name: Delivery Method: HAND - Hand Delivered Ayesha Days: Prior Verbal Notification: Recipient Understood Notice: Yes Recipient Signature: Yes Med Rec Note Co-signed by Attending: Coverage Notice Comment: IMM explained, signed, copy given, original placed in MR Last DP export: 11/24/18 11:10 a Patient Name: VALADEZ, ANITA Page [id number] at 1219 All edits/amendments must be made on the electronic document DICTATION DATE: 11/24/181217 YARN CLEANER: LUZMA 11/24/181217 RPT#: [id number] DC DATE: STATUS: ADM IN [facility] [address] [place] [address] END OF REPORT
[2018-11-24 12:26] VITALS: BP 135/63
[2018-11-24] MEDS ORDERED: MUCINEX DM ER1 EAC1 PO (12:32)
[2018-11-24] MEDS ORDERED: BENZONATATE200 MG PO (12:32)
[2018-11-24] MEDS ORDERED: ELIQUIS5 MG PO (12:33)
[2018-11-24] MEDS ORDERED: FLUTICASONE PRO16 GM NASAL (12:33)
--- NOTE | 2018-11-24 12:54 | MORECARE ---
CASE MANAGEMENT DISCHARGE SUMMARY PATIENT: ANITA VALADEZ UNIT: [id number] ADM DATE: 11/19/18 AGE: 82 : 33 SEX: M ROOM/BED: D.2238 AUTHOR: FLORA,DOC PHYSICIAN: REFERRING PHYSICIAN: SHANNAN NUR MD DATE OF SERVICE: 11/24/18 Discharge Plan Patient Name: ANITA VALADEZ [facility]:[place] : 1935 Planned Disposition: Anticipated Discharge Date: Discharge Date: Expected LOS: Initial Reviewer: [id number] Initial Review Date: 11/19/2018 Generated: 11/24/18 1:54 pm Comments DCP- Discharge Planning Updated by [id number]: Skylar Winston on 11/24/18 11:[address] Received orders for discharge. Patient does not qualify for oxygen, he states they walked me around [place] 4 times and it was still 91%. Daughter states to use [facility] for nebulizer. I called and spoke to Daily and clinical sent. CARMELITA for Elite signed. I called [facility] and clinical sent. I called [facility] and pharmacist states that [place] will not [place] for Xarel[place] unless written by [place] doctor. I spoke with Dr. Smith and he will change to Eloquis. Daughter and patient states he can take eloquis. I will provide coupon. CM will continue to follow and assist with discharge planning/needs. DCP- Discharge Planning Updated by [id number]: Irma Simpson on 11/23/18 11:[address] VALVERDE ADVISED PATIENT WILL NEED A NEBULIZER AT DISCHARGE W/ DUONEB 4 TIMES A DAY. HE ALSO REQUEST FOR PATIENT TO BE CHECKED FOR OXYGEN REQUIREMENTS. DCP- Discharge Planning Updated by [id number]: Irma Simpson on 11/23/18 10:[address] PATIENT AND FAMILY DISCUSSED ACUTE REHAB CONSULT PATIENT IS WEAK AND REQUIRES MUTIPLE PEROIDS OF REST WHEN AMBULATING. SPOKE WITH NURSE AND ENGRAVINGS POLISHER. OT CONSULT AND REHAB PRESCREENING ORDERED. FAMILY ALSO HAD QUESTIONS REGARDING COVERAGE FOR XARELTO. HE OBTAINS SOME OF HIS MEDICATIONS FROM THE [place] IN [place] AND WILL OBTAIN SOME FROM [facility]/ [facility]. HE HAS A NEW MEDICARE D PLAN. CM EXPLAINED I CANNOT TELL THEM IF IT IS COVERED I CANNOT ACCESS HIS PLAN. HIS PHARMACY IS CLOSED TODAY. I RECOMMENED THE FAMILY CALL AND ASK THE PHARMACIST AT [facility]. PATIENT'S PRIMARY AT [facility] IS DR STEPHANIE BAILEY.. DCP- Discharge Planning Updated by [id number]: Kalyn Armstrong on 11/19/18 1:[address] CM met with patient in ER to discuss dc needs/plans. Multiple family members in room and patient gives permission to speak in front of them. Patient lives [facility] [place] [facility]. Reports that he is independent with his ADL's. PCP: None--would like to use Dr. Hameed, when he is available. [facility] States he just obtained Medicare Part D and would like to use [facility] for emergent meds. DME: walker, Quad cane, grab bars. Reports he does not use DME. Denies use of community services. Denies HHS:. States he drives his car to the dining room. Emergency Contact: Natasha Rogers (DTR) [phone], Devang Valadez (son) [phone]. Patient states he plans to return to [facility] and is unsure if he will require additional services upon discharge. Denies being hospitalized within the past 30 days. CM will assist as needed with dc needs/plans. Kalyn Armstrong RN, CM DCPIA - Discharge Planning Initial Assessment Updated by [id number]: Kalyn Nathaniel on 11/19/18 2:45 pm * Is the patient Alert and Oriented? Yes * How many steps to enter\exit or inside your home? * [facility]CP [facility]-- would like to use Dr. Hameed when available. * [facility] for urgent [facility]s * Preadmission Environment Assisted Living * Facility Name [facility] * ADLs Independent * Equipment Cane Grab Bars Walker * Other Equipment NA * List name and contact numbers for known caregivers / representatives who currently or will assist patient after discharge: Natasha Rogers (Dtr) [phone] norberto Jn (son) [phone] * Community resources currently utilized None * Please name any agencies selected above. NA * Additional services required to return to the preadmission environment? No * Can the patient safely return to the preadmission environment? Yes * Has this patient been hospitalized within the prior 30 days at any hospital? No Coverage Notice Reviewer: [id number] Briana Montero Notice Issued Date-Time: 11/24/2018 12:08 Notice Type: IM Discharge Notice Notice Delivered To: Patient Relationship to Patient: Self Reverberatory Furnace Operator Name: Delivery Method: HAND - Hand Delivered Ayesha Days: Prior Verbal Notification: Recipient Understood Notice: Yes Recipient Signature: Yes Med Rec Note Co-signed by Attending: Coverage Notice Comment: IMM explained, signed, copy given, original placed in MR Last DP export: 11/24/18 11:19 a Patient Name: ANITA VALADEZ Page [id number] at 1254 All edits/amendments must be made on the electronic document DICTATION DATE: 11/24/18 125 DEMONSTRATOR ELECTRIC GAS APPLIANCES: LUZMA 11/24/18 1254 RPT#: [id number] DC DATE: STATUS: ADM IN [facility] [address] [place] [address] END OF REPORT
[2018-11-24] MEDS ORDERED: PROMETHAZINE W473 ML PO (13:26)
[2018-11-24] MEDS ORDERED: XOPENEX 1.1.25 MG/3 UPD (14:01)
--- NOTE | 2018-11-24 14:32 | NUR ---
PATIENT DISCHARGED UNDER CARE OF DAUGHTER VIA POV. VERBALIZED UNDERSTANDING OF DISCHARGE INSTRUCTIONS WITH RX. GIVEN TO PT AND FAMILY. STABLE AT TIME OF DEPARTURE.
[2018-11-24 16:10] LABS: PROTEIN C - ANTIGEN 78 % (60-150); PROTEIN C - FUNCTIONAL 94 % (73-180)
--- NOTE | 2018-11-25 10:51 | MORECARE ---
CASE MANAGEMENT DISCHARGE SUMMARY PATIENT: ANITA VALADEZ UNIT: [id number] ADM DATE: 11/19/18 AGE: 82 : 33 SEX: M ROOM/BED: D.2238 AUTHOR: FLORA,DOC PHYSICIAN: REFERRING PHYSICIAN: SHANNAN NUR MD DATE OF SERVICE: 11/25/18 Discharge Plan Patient Name: ANITA VALADEZ Facility: [facility]:[place] : 1935 Planned Disposition: Anticipated Discharge Date: Discharge Date: 11/24/2018 Expected LOS: Initial Reviewer: [id number] Initial Review Date: 11/19/2018 Generated: 11/25/18 11:51 am Comments DCP- Discharge Planning Updated by [id number]: Skylar Montero on 11/24/18 11:[address] Received orders for discharge. Patient does not qualify for oxygen, he states they walked me around the [place] 4 times and it was still 91%. Daughter states to use [facility] for nebulizer. I called and spoke to Daily and clinical sent. CARMELITA for Elite signed. I called [facility] and clinical sent. I called [facility] and pharmacist states that [place] will not pay for Xarelto unless written by [place] doctor. I spoke with Dr. Smith and he will change to Eloquis. Daughter and patient states he can take eloquis. I will provide coupon. CM will continue to follow and assist with discharge planning/needs. DCP- Discharge Planning Updated by [id number]: Irma Simpson on 11/23/18 11:[address] VALVERDE ADVISED PATIENT WILL NEED A NEBULIZER AT DISCHARGE W/ DUONEB 4 TIMES A DAY. HE ALSO REQUEST FOR PATIENT TO BE CHECKED FOR OXYGEN REQUIREMENTS. DCP- Discharge Planning Updated by [id number]: Irma Simpson on 11/23/18 10:[address] PATIENT AND FAMILY DISCUSSED ACUTE REHAB CONSULT PATIENT IS WEAK AND REQUIRES MUTIPLE PEROIDS OF REST WHEN AMBULATING. SPOKE WITH NURSE AND DIRECTOR EMERGENCY. OT CONSULT AND REHAB PRESCREENING ORDERED. FAMILY ALSO HAD QUESTIONS REGARDING COVERAGE FOR XARELTO. HE OBTA[place] SOME OF [place] MED[place]S [place] AND WILL OBTAIN SOME FROM [facility]/ [facility]. HE HAS A NEW MEDICARE D PLAN. CM EXPLAINED I CANNOT TELL THEM IF IT IS COVERED I CANNOT ACCESS HIS PLAN. HIS PHARMACY IS CLOSED TODAY. I RECOMMENED THE FAMILY CALL AND ASK THE PHARMACIST AT [facility]. PATIENT'S PRIMARY AT [facility] IS DR STEPHANIE BAILEY.. DCP- Discharge Planning Updated by [id number]: Kalyn Armstrong on 11/19/18 1:[address] CM met with patient in ER to discuss dc needs/plans. Multiple family members in room and patient gives permission to speak in front of them. Patient lives [facility] in a [facility], alone. Reports that he is independent with his ADL's. PCP: None--would like to use Dr. Hameed, when he is available. [facility] States he just obtained Medicare Part D and would like to use [facility] for emergent meds. DME: walker, Quad cane, grab bars. Reports he does not use DME. Denies use of community services. Denies HHS:. States he drives his car to the dining room. Emergency Contact: Natasha Rogers (DTR) [phone], Devang Valadez (son) [phone]. Patient states he plans to return to [facility] and is unsure if he will require additional services upon discharge. Denies being hospitalized within the past 30 days. CM will assist as needed with dc needs/plans. Kalyn Armstrong RN, CM DCPIA - Discharge Planning Initial Assessment Updated by [id number]: Kalyn Armstrong on 11/19/18 2:45 pm * Is the patient Alert and Oriented? Yes * How many steps to enter\exit or inside your home? * [facility]-- would like to use Dr. Hameed when available. * [facility] for urgent meds * Preadmission Environment Assisted Living * Facility Name [facility] * ADLs Independent * Equipment Cane Grab Bars Walker * Other Equipment NA * List name and contact numbers for known caregivers / representatives who currently or will assist patient after discharge: Natasha Rogers (Dtr) [phone] norberto Valadez (son) [phone] * Community resources currently utilized None * Please name any agencies selected above. NA * Additional services required to return to the preadmission environment? No * Can the patient safely return to the preadmission environment? Yes * Has this patient been hospitalized within the prior 30 days at any hospital? No External Providers External Provider: [facility] Next Contact Date: Service Request Date: Service Type: Resolution: Reviewer: Comments: Coverage Notice Reviewer: [id number] Briana Skylar Montero Notice Issued Date-Time: 11/24/2018 12:08 Notice Type: IM Discharge Notice Notice Delivered To: Patient Relationship to Patient: Self Application Systems Administrator Name: Delivery Method: HAND - Hand Delivered Ayesha Days: Prior Verbal Notification: Recipient Understood Notice: Yes Recipient Signature: Yes Med Rec Note Co-signed by Attending: Coverage Notice Comment: IMM explained, signed, copy given, original placed in MR Last DP export: 11/24/18 11:54 a Patient Name: ANITA VALADEZ Page [id number] at 1051 All edits/amendments must be made on the electronic document DICTATION DATE: 11/25/18 1051 MANAGER DISH: LUZMA 11/25/18 1051 RPT#: [id number] DC DATE:11/24/18 STATUS: DIS IN [address] [place] [address] END OF REPORT
[2018-11-25 12:15] LABS: PSA - FREE 0.09 ng/mL; PSA - TOTAL 0.5 ng/mL (0.0-4.0)
[2018-11-25 18:08] LABS: FACTOR II DNA ANALYSIS Negative (())
--- NOTE | 2018-11-26 15:58 | MORECARE ---
CASE MANAGEMENT DISCHARGE SUMMARY PATIENT: ANITA VALADEZ UNIT: [id number] ADM DATE: 11/19/18 AGE: 82 : 33 SEX: M ROOM/BED: D.2238 AUTHOR: FLORA,DOC PHYSICIAN: REFERRING PHYSICIAN: SHANNAN NUR MD DATE OF SERVICE: 11/26/18 Discharge Plan Patient Name: ANITA VALADEZ Facility: [facility]:[place] : 1935 Planned Disposition: Anticipated Discharge Date: Discharge Date: 11/24/2018 Expected LOS: Initial Reviewer: [email or web address] Initial Review Date: 11/19/2018 Generated: 11/26/18 4:57 pm DCP- Discharge Planning Updated by [id number]: Skylar Montero on 11/24/18 11:[address] Received orders for discharge. Patient does not qualify for oxygen, he states they walked me around the the [place] 4 times and it was still 91%. Daughter states to use [facility] for nebulizer. I called and spoke to Daily and clinical sent. CARMELITA for Elite signed. I called Carey and clinical sent. I called [facility] and pharmacist states that [place] will not pay for Xarelto unless written by [place] doctor. I spoke with Dr. Smith and he will change to Eloquis. Daughter and patient states he can take eloquis. I will provide coupon. CM will continue to follow and assist with discharge planning/needs. DCP- Discharge Planning Updated by [id number]: Irma Simpson on 11/23/18 11:[address] VALVERDE ADVISED PATIENT WILL NEED A NEBULIZER AT DISCHARGE W/ DUONEB 4 TIMES A DAY. HE ALSO REQUEST FOR PATIENT TO BE CHECKED FOR OXYGEN REQUIREMENTS. DCP- Discharge Planning Updated by [id number]: Irma Simpson on 11/23/18 10:[address] PATIENT AND FAMILY DISCUSSED ACUTE REHAB CONSULT PATIENT IS WEAK AND REQUIRES MUTIPLE PEROIDS OF REST WHEN AMBULATING. SPOKE WITH NURSE AND BUS AND RAIL OPERATOR. OT CONSULT AND REHAB PRESCREENING ORDERED. FAMILY ALSO HAD QUESTIONS REGARDING COVERAGE FOR XARELTO. HE OBTA[place] SOME OF [place] MEDICATIONS FROM THE [place] IN [place] AND WILL OBTAIN SOME FROM [facility]. HE HAS A NEW MEDICARE D PLAN. CM EXPLAINED I CANNOT TELL THEM IF IT IS COVERED I CANNOT ACCESS HIS PLAN. HIS PHARMACY IS CLOSED TODAY. I RECOMMENED THE FAMILY CALL AND [facility] PATIENT[facility]S PRIMARY AT [facility] IS DR STEPHANIE BAILEY.. DCP- Discharge Planning Updated by [id number]: Kalyn Armstrong on 11/19/18 1:[address] CM met with patient in ER to discuss dc needs/plans. Multiple family members in room and patient gives permission to speak in front of them. Patient [facility] in [facility], alone. Reports that he is independent with his ADL's. PCP: None--would like to use Dr. Hameed, when he is available. [facility] States he just obtained Medicare Part D and would like to use [facility] for emergent meds. DME: walker, Quad cane, grab bars. Reports he does not use DME. Denies use of community services. Denies HHS:. States he drives his car to the dining room. Emergency Contact: Natasha Rogers (DTR) [phone], Devang Jn (son) [phone]. Patient states he plans to return to [facility] and is unsure if he will require additional services upon discharge. Denies being hospitalized within the past 30 days. CM will assist as needed with dc needs/plans. Kalyn Armstrong RN, CM DCPIA - Discharge Planning Initial Assessment Updated by [id number]: Kalyn Nathaniel on 11/19/18 2:45 pm * Is the patient Alert and Oriented? Yes * How many steps to enter\exit or inside your home? * [facility]-- would like to use Dr. Hameed when available. * [facility] * Preadmission Environment Assisted Living * Facility Name [facility] * ADLs Independent * Equipment Cane Grab Bars Walker * Other Equipment NA * List name and contact numbers for known caregivers / representatives who currently or will assist patient after discharge: Natasha Rogers (Dtr) [phone] norberto Jn (son) [phone] * Community resources currently utilized None * Please name any agencies selected above. NA * Additional services required to return to the preadmission environment? No * Can the patient safely return to the preadmission environment? Yes * Has this patient been hospitalized within the prior 30 days at any hospital? No Coverage Notice Reviewer: [id number] Briana Montero Notice Issued Date-Time: 11/24/2018 12:08 Notice Type: IM Discharge Notice Notice Delivered To: Patient Relationship to Patient: Self Automated Manufacturing Instructor Name: Delivery Method: HAND - Hand Delivered Ayesha Days: Prior Verbal Notification: Recipient Understood Notice: Yes Recipient Signature: Yes Med Rec Note Co-signed by Attending: Coverage Notice Comment: IMM explained, signed, copy given, original placed in MR Last DP export: 11/25/18 9:51 a Patient Name: ANITA VALADEZ Page [id number] at 1558 All edits/amendments must be made on the electronic document DICTATION DATE: 11/26/181556 FOOD SELECTOR: LUZMA 11/26/181556 RPT#: [id number] DC DATE:11/24/18 STATUS: DIS IN [facility] [address] [place] [address] END OF REPORT
--- NOTE | 2018-11-26 16:13 | MORECARE ---
CASE MANAGEMENT DISCHARGE SUMMARY PATIENT: ANITA VALADEZ UNIT: [id number] ADM DATE: 11/19/18 AGE: 82 : 33 SEX: M ROOM/BED: D.2238 AUTHOR: FLORA,DOC PHYSICIAN: REFERRING PHYSICIAN: SHANNAN NUR MD DATE OF SERVICE: 11/26/18 Discharge Plan Patient Name: ANITA VALADEZ Facility: [facility]:[place] : 1935 Planned Disposition: Anticipated Discharge Date: Discharge Date: 11/24/2018 Expected LOS: Initial Reviewer: [email or web address] Initial Review Date: 11/19/2018 Generated: 11/26/18 5:13 pm DCP- Discharge Planning Updated by [email or web address]: Skylar Montero on 11/24/18 11:[address] Received orders for discharge. Patient does not qualify for oxygen, he states they walked me around the [place] 4 times and it was still 91%. Daughter states to use [facility] for nebulizer. I called and spoke to Daily and clinical sent. CARMELITA for Elite signed. I called Carey and clinical sent. I called [facility] and pharmacist states that [place] will not pay for Xarelto unless written by [place] doctor. I spoke with Dr. Smith and he will change to Eloquis. Daughter and patient states he can take eloquis. I will provide coupon. CM will continue to follow and assist with discharge planning/needs. DCP- Discharge Planning Updated by [id number]: Irma Simpson on 11/23/18 11:[address] VALVERDE ADVISED PATIENT WILL NEED A NEBULIZER AT DISCHARGE W/ DUONEB 4 TIMES A DAY. HE ALSO REQUEST FOR PATIENT TO BE CHECKED FOR OXYGEN REQUIREMENTS. DCP- Discharge Planning Updated by [id number]: Irma Simpson on 11/23/18 10:[address] PATIENT AND FAMILY DISCUSSED ACUTE REHAB CONSULT PATIENT IS WEAK AND REQUIRES MUTIPLE PEROIDS OF REST WHEN AMBULATING. SPOKE WITH NURSE AND DEVELOPER RELATIONS MANAGER. OT CONSULT AND REHAB PRESCREENING ORDERED. FAMILY ALSO HAD QUESTIONS REGARDING COVERAGE FOR XARELTO. HE OBTAINS SOME OF HIS MEDICATIONS FROM THE [place] IN [place] AND WILL OBTAIN SOME FROM [facility]. HE HAS A NEW MEDICARE D PLAN. CM EXPLAINED I CANNOT TELL THEM IF IT IS COVERED I CANNOT ACCESS HIS PLAN. HIS PHARMACY IS CLOSED TODAY. I RECOMMENED THE FAMILY CALL AND [facility] PATIENT'S PRIMARY AT [facility] IS DR STEPHANIE BAILEY.. DCP- Discharge Planning Updated by [id number]: Kalyn Armstrong on 11/19/18 1:[address] CM met with patient in ER to discuss dc needs/plans. Multiple family members in room and patient gives permission to speak in front of them. Patient lives [facility] in a [facility], alone. Reports that he is independent with his ADL's. PCP: None--would like to use Dr. Hameed, when he is available. [facility] States he just obtained Medicare Part D and would like to [facility] for emergent [facility]s. DME: walker, Quad cane, grab bars. Reports he does not use DME. Denies use of community services. Denies HHS:. States he drives his car to the dining room. Emergency Contact: Natasha Rogers (DTR) [phone], Devang Jn (son) [phone]. Patient states he plans to return to [facility] and is unsure if he will require additional services upon discharge. Denies being hospitalized within the past 30 days. CM will assist as needed with dc needs/plans. Kalyn Armstrong RN, CM DCPIA - Discharge Planning Initial Assessment Updated by [id number]: Kalyn Nathaniel on 11/19/18 2:45 pm * Is the patient Alert and Oriented? Yes * How many steps to enter\exit or inside your home? * [facility]-- would like to use Dr. Hameed when available. * [facility] * Preadmission Environment Assisted Living * Facility Name [facility] * ADLs Independent * Equipment Cane Grab Bars Walker * Other Equipment NA * List name and contact numbers for known caregivers / representatives who currently or will assist patient after discharge: Natasha Rogers (Dtr) [phone] norberto Jn (son) [phone] * Community resources currently utilized None * Please name any agencies selected above. NA * Additional services required to return to the preadmission environment? No * Can the patient safely return to the preadmission environment? Yes * Has this patient been hospitalized within the prior 30 days at any hospital? No External Providers External Provider: OTHER-OTHER Next Contact Date: Service Request Date: Service Type: Resolution: Reviewer: Comments: Coverage Notice Reviewer: [id number] Briana Skylar Montero Notice Issued Date-Time: 11/24/2018 12:08 Notice Type: IM Discharge Notice Notice Delivered To: Patient Relationship to Patient: Self Ent Physician Name: Delivery Method: HAND - Hand Delivered Ayesha Days: Prior Verbal Notification: Recipient Understood Notice: Yes Recipient Signature: Yes Med Rec Note Co-signed by Attending: Coverage Notice Comment: IMM explained, signed, copy given, original placed in MR Last DP export: 11/26/18 2:58 p Patient Name: ANITA VALADEZ Page [id number] at 1613 All edits/amendments must be made on the electronic document DICTATION DATE: 11/26/181611 HUMAN FACTORS ADVISOR LEAD: LUZMA 11/26/181611 RPT#: [id number] DC DATE:11/24/18 STATUS: DIS IN [facility] [address] [place] [address] END OF REPORT
--- NOTE | 2018-11-28 13:40 | MORECARE ---
CASE MANAGEMENT DISCHARGE SUMMARY PATIENT: ANITA VALADEZ UNIT: [id number] ADM DATE: 11/19/18 AGE: 82 : 33 SEX: M ROOM/BED: D.2238 AUTHOR: FLORADOC PHYSICIAN: REFERRING PHYSICIAN: SHANNAN NUR MD DATE OF SERVICE: 11/28/18 Discharge Plan Patient Name: ANITA VALADEZ Facility: [facility]:[place] : 1935 Planned Disposition: Home Anticipated Discharge Date: Discharge Date: 11/24/2018 Expected LOS: 0 Initial Reviewer: [id number] Initial Review Date: 11/19/2018 Generated: 11/28/18 2:40 pm DCP- Discharge Planning Updated by [id number]: Skylar Montero on 11/24/18 11:[address] Received orders for discharge. Patient does not qualify for oxygen, he states they walked me around the [place] 4 times and it was still 91%. Daughter states to use [facility] for nebulizer. I called and spoke to Daily and clinical sent. CARMELITA for Elite signed. I called Carey and clinical sent. I called [facility] and pharmacist states that [place] will not pay for Xarelto unless written by [place] doctor. I spoke with Dr. Smith and he will change to Eloquis. Daughter and patient states he can take eloquis. I will provide coupon. CM will continue to follow and assist with discharge planning/needs. DCP- Discharge Planning Updated by [email or web address]: Irma Simpson on 11/23/18 11:[address] VALVERDE ADVISED PATIENT WILL NEED A NEBULIZER AT DISCHARGE W/ DUONEB 4 TIMES A DAY. HE ALSO REQUEST FOR PATIENT TO BE CHECKED FOR OXYGEN REQUIREMENTS. DCP- Discharge Planning Updated by [id number]: Irma Simpson on 11/23/18 10:[address] PATIENT AND FAMILY DISCUSSED ACUTE REHAB CONSULT PATIENT IS WEAK AND REQUIRES MUTIPLE PEROIDS OF REST WHEN AMBULATING. SPOKE WITH NURSE AND DOUBLE REAMER OPERATOR. OT CONSULT AND REHAB PRESCREENING ORDERED. FAMILY ALSO HAD QUESTIONS REGARDING COVERAGE FOR XARELTO. HE OB[place] SOME OF [place] MEDICATIONS FROM THE [place] AND WILL OBTAIN SOME FROM [facility]. HE HAS A NEW MEDICARE D PLAN. CM EXPLAINED I CANNOT TELL THEM IF IT IS COVERED I CANNOT ACCESS HIS PLAN. HIS PHARMACY IS CLOSED TODAY. I RECOMMENED THE FAMILY CALL AND ASK THE PHARMACIST AT [facility]. PATIENT'S PRIMARY AT [facility] IS DR STEPHANIE BAILEY.. DCP- Discharge Planning Updated by [id number]: Kalyn Armstrong on 11/19/18 1:[address] CM met with patient in ER to discuss dc needs/plans. Multiple family members in room and patient gives permission to speak in front of them. Patient lives @[facility] in [facility], alone. Reports that he is independent with his ADL's. PCP: None--would like to use Dr. Hameed, when he is available. [facility] States he just obtained Medicare Part D and would like to use [facility] for emergent meds. DME: walker, Quad cane, grab bars. Reports he does not use DME. Denies use of community services. Denies HHS:. States he drives his car to the dining room. Emergency Contact: Natasha Rogers (DTR) [phone], Devang Jn (son) [phone]. Patient states he plans to return to [facility] and is unsure if he will require additional services upon discharge. Denies being hospitalized within the past 30 days. CM will assist as needed with dc needs/plans. Kalyn Armstrong RN, CM DCPIA - Discharge Planning Initial Assessment Updated by [id number]: Kalyn Armstrong on 11/19/18 2:45 pm * Is the patient Alert and Oriented? Yes * How many steps to enter\exit or inside your home? * [facility]CP [facility]-- would like to use Dr. Hameed when available. * [facility] * Preadmission Environment Assisted Living * Facility Name [facility] * ADLs Independent * Equipment Cane Grab Bars Walker * Other Equipment NA * List name and contact numbers for known caregivers / representatives who currently or will assist patient after discharge: Natasha Rogers (Dtr) [phone] norberto Jn (son) [phone] * Community resources currently utilized None * Please name any agencies selected above. NA * Additional services required to return to the preadmission environment? No * Can the patient safely return to the preadmission environment? Yes * Has this patient been hospitalized within the prior 30 days at any hospital? No Coverage Notice Reviewer: [id number] Briana Montero Notice Issued Date-Time: 11/24/2018 12:08 Notice Type: IM Discharge Notice Notice Delivered To: Patient Relationship to Patient: Self Glue Jointer Operator Name: Delivery Method: HAND - Hand Delivered Ayesha Days: Prior Verbal Notification: Recipient Understood Notice: Yes Recipient Signature: Yes Med Rec Note Co-signed by Attending: Coverage Notice Comment: IMM explained, signed, copy given, original placed in MR Last DP export: 11/26/18 3:13 p Patient Name: ANITA VALADEZ Page [id number] at 1340 All edits/amendments must be made on the electronic document DICTATION DATE: 11/28/181338 COURT REPORTER: LUZMA 11/28/181338 RPT#: [id number] DC DATE:11/24/18 STATUS: DIS IN [facility] [address] [place] [address] END OF REPORT
== END 2018-11-24 14:41 | disposition home or self-care (01) | DRG 175 ==
LOC: D.ER 21:08 → D.EDHOLD 11-19 01:58 → D.MS 11-19 01:58
PROVIDERS: Family Medicine; Internal Medicine Hematology & Oncology; Internal Medicine Pulmonary Disease; ADMIT Internal Medicine Nephrology
DX: I26.99 Other pulmonary embolism without acute cor pulmonale (principal); J96.01 Acute respiratory failure with hypoxia; N17.9 Acute kidney failure, unspecified; J44.1 Chronic obstructive pulmonary disease with (acute) exacerbation; I10 Essential (primary) hypertension; E78.5 Hyperlipidemia, unspecified; I25.10 Atherosclerotic heart disease of native coronary artery without angina pectoris; K21.9 Gastro-esophageal reflux disease without esophagitis; E11.9 Type 2 diabetes mellitus without complications

== ENCOUNTER → 2019-01-27 14:17 | Outpatient (CLI) | payer MEDICARE, BC ==
[2018-11-21 23:54] VITALS: BMI 33.4
[~2019-01-27 14:17] MED LIST: BAYER CHEWABLE81 MG PO; BENZONATATE200 MG PO; ELIQUIS5 MG PO; FLUTICASONE PRO16 GM NASAL; LIPITOR10 MG PO; MUCINEX DM ER1 EAC1 PO; NEURONTIN 300300 MG PO; NOVOLOG100 UNIT/1 SQ; OMEPRAZOLE20 M1 PO; PRINIVIL20 MG PO; PROMETHAZINE W473 ML PO; SOLIQUA 100 UNIT3 ML SQ; TRICOR48 MG PO; VITAMIN B-121000 MCG PO; VITAMIN D2000 UNIT PO; XOPENEX 1.1.25 MG/3 UPD
== END | disposition home or self-care (01) ==
LOC: D.US 13:00
PROVIDERS: ATTEND Family Medicine
DX: I82.409 Acute embolism and thrombosis of unspecified deep veins of unspecified lower extremity (principal)

== ENCOUNTER → 2019-04-01 15:40 | Outpatient (CLI) | payer MEDICARE, BC | END | disposition home or self-care (01) | LOC: D.CT 15:40 | DX: G45.9 Transient cerebral ischemic attack, unspecified (principal) ==

== ENCOUNTER → 2019-04-02 06:28 | Outpatient (CLI) | payer MEDICARE, BC | END | disposition home or self-care (01) | LOC: D.US 06:28 | DX: G45.9 Transient cerebral ischemic attack, unspecified (principal); R06.09 Other forms of dyspnea ==

== ENCOUNTER 2019-04-20 16:21 | Inpatient (IN) | payer MEDICARE, BC ==
[2019-04-20] MEDS ORDERED: FOLIC ACID1 MG PO (17:32)
[2019-04-20] MEDS ORDERED: NOVOLOG100 UNIT/1 SC (17:33)
[2019-04-20] MEDS ORDERED: LANTUS SOL100 UNIT/1 SC (17:33)
[2019-04-20 17:49] LABS: BASOPHILS 0.7 % (0-2); EOSINOPHILS 4.1 % (0-7); HEMOGLOBIN 12.5 g/dL (13.5-17.5); IMMATURE GRANULOCYTES 0.3 % (0-5); LYMPHOCYTES 28.3 % (15-50); MCH 30.9 pg (26.0-34.0); MCHC 33.8 g/dL (31.0-37.0); MCV 91.6 fL (80.0-100.0); MONOCYTES 5.7 % (2-11); NEUTROPHILS 60.9 % (40-80); PLATELET COUNT 147 10x3/uL (130-400); RBC 4.04 10x6/uL (4.20-6.10); RDW 13.8 % (11.5-14.5); WBC 8.8 10x3/uL (4.8-10.8)
[2019-04-20 18:09] LABS: ALBUMIN 3.8 g/dL (3.4-5.0); ALKALINE PHOSPHATASE 90 U/L (46-116); ALT (SGPT) 27 U/L (10-68); BILIRUBIN - TOTAL 0.48 mg/dL (0.2-1.3); CALC OSMOLALITY 293 mosm/kg (275-300); CALCIUM 8.6 mg/dL (8.5-10.1); CARBON DIOXIDE 24.2 mmol/L (21.0-32.0); CHLORIDE - SERUM 103 mmol/L (98-107); CREATININE - SERUM 1.6 mg/dL (0.6-1.3); PROTEIN - SERUM 6.6 g/dL (6.4-8.2); SODIUM 138 mmol/L (136-145); UREA NITROGEN 38 mg/dL (7-18); eGFR NON AFRICAN AMERICAN 44 mL/min (90-120)
[2019-04-20 18:11] LABS: GLUCOSE 267 mg/dL (74-106)
[2019-04-20 18:19] LABS: CKMB 1.6 U/L (0.0-3.6); CREATINE KINASE 52 UL (21-232)
[2019-04-20 18:21] VITALS: BP 94/45; BMI 33.8
[2019-04-20 18:30] LABS: TROPONIN-I 0.017 ng/mL (0.000-0.060)
--- NOTE | 2019-04-20 18:33 | NUR ---
20G PIV INSERTED X1 ATTEMPT TO RIGHT FA. PT TOLERATED WELL.
[2019-04-20 20:00] VITALS: BP 118/52
--- NOTE | 2019-04-20 20:59 | NUR ---
NIGHT TIME. MEDICATIONS GIVEN AT THIS TIME. IV FLUIDS HUNG TO RUN AT KVO TO RT AC. PT A/O X4, RESP EVEN AND NONLABORED ON RA. MONITOR SHOWING SR WITH RATE OF 80. PT DENIES ANY NEEDS AT THIS TIME. FAMILY AT BEDSIDE, CALL LIGHT IN REACH, BEDSIDE RAILS X2, NAD NOTED, WILL CONTINUE PLAN OF CARE.
[2019-04-20 21:16] LABS: APPEARANCE CLEAR (CLEAR); BILIRUBIN NEGATIVE (NEGATIVE); COLOR YELLOW (YELLOW); GLUCOSE 100 mg/dL (NEGATIVE); KETONE NEGATIVE (NEGATIVE); NITRITE NEGATIVE (NEGATIVE); PROTEIN NEGATIVE (NEGATIVE); UROBILINOGEN NORMAL (NORMAL)
[2019-04-21 00:02] LABS: CREATINE KINASE 47 UL (21-232); TROPONIN-I < 0.017 ng/mL (0.000-0.060)
[2019-04-21 04:00] VITALS: BP 137/68
[2019-04-21 06:32] LABS: BASOPHILS 0.7 % (0-2); EOSINOPHILS 4.3 % (0-7); HEMATOCRIT 37.3 % (42.0-54.0); HEMOGLOBIN 12.8 g/dL (13.5-17.5); IMMATURE GRANULOCYTES 0.1 % (0-5); LYMPHOCYTES 30.6 % (15-50); MCH 30.8 pg (26.0-34.0); MCHC 34.3 g/dL (31.0-37.0); MCV 89.9 fL (80.0-100.0); MEAN PLATELET VOLUME 11.2 fL (7.4-10.4); MONOCYTES 7.9 % (2-11); NEUTROPHILS 56.4 % (40-80); PLATELET COUNT 139 10x3/uL (130-400); RBC 4.15 10x6/uL (4.20-6.10); RDW 13.9 % (11.5-14.5); WBC 7.2 10x3/uL (4.8-10.8)
--- NOTE | 2019-04-21 07:00 | NUR ---
RECEIVED REPORT. ASSUMED CARE OF PATIENT. CALL LIGHT WITHIN REACH. PATIENT UP AMBULATING IN ROOM TO THE RESTROOM. ASSISTED PATIENT WITH MINIMAL ASSIST. NO DISTRESS. CALL LIGHT PLACED WITHIN REACH. IV FLUIDS INFUSING AT KVO RATE.
[2019-04-21 07:06] LABS: ALBUMIN 3.8 g/dL (3.4-5.0); ALKALINE PHOSPHATASE 91 U/L (46-116); ALT (SGPT) 25 U/L (10-68); BILIRUBIN - TOTAL 0.42 mg/dL (0.2-1.3); CALC OSMOLALITY 294 mosm/kg (275-300); CALCIUM 9.5 mg/dL (8.5-10.1); CARBON DIOXIDE 27.7 mmol/L (21.0-32.0); CHLORIDE - SERUM 105 mmol/L (98-107); CKMB 1.4 U/L (0.0-3.6); CREATINE KINASE 42 UL (21-232); CREATININE - SERUM 1.5 mg/dL (0.6-1.3); MAGNESIUM - SERUM 1.8 mg/dL (1.8-2.4); PHOSPHOROUS 3.8 mg/dL (2.5-4.9); POTASSIUM - SERUM 4.6 mmol/L (3.5-5.1); PROTEIN - SERUM 6.8 g/dL (6.4-8.2); SODIUM 141 mmol/L (136-145); TROPONIN-I 0.022 ng/mL (0.000-0.060); UREA NITROGEN 32 mg/dL (7-18); eGFR NON AFRICAN AMERICAN 47 mL/min (90-120)
[2019-04-21 07:08] LABS: GLUCOSE 217 mg/dL (74-106)
[2019-04-21 07:17] LABS: INR 1.21 (0.85-1.17); PROTIME 14.7 SECONDS (11.6-15.0)
[2019-04-21 07:19] LABS: D-DIMER-QUANTITATIVE 0.72 ug/mLFEU (0.20-0.54)
[2019-04-21 08:15] VITALS: BP 106/61
[2019-04-21 08:47] LABS: APPEARANCE CLEAR (CLEAR); BILIRUBIN NEGATIVE (NEGATIVE); COLOR YELLOW (YELLOW); GLUCOSE 250 mg/dL (NEGATIVE); KETONE NEGATIVE (NEGATIVE); NITRITE NEGATIVE (NEGATIVE); PROTEIN NEGATIVE (NEGATIVE); SPECIFIC GRAVITY 1.015 (1.005-1.020); UROBILINOGEN NORMAL (NORMAL)
--- NOTE | 2019-04-21 09:27 | NUR ---
STRESS TEST SCHEDULED FOR 1414 TODAY WITH
--- NOTE | 2019-04-21 11:11 | NUR ---
FSBS 178. PATIENT NPO FOR NUCELAR STRESS TEST. NO INSULIN ADMINISTERED. MOHINDER FROM NUCLEAR MED AT BEDSIDE ADMINISTERING NUCLEAR TRACER AT THIS TIME. NO DISTRESS. PATIENT SITTING UP TO CHAIR AT BEDSIDE. FAMILY VISITING.
[2019-04-21 11:48] VITALS: BP 136/62
[2019-04-21 15:09] VITALS: BP 129/61
[2019-04-21 15:18] VITALS: BP 137/56; BP 153/62
--- NOTE | 2019-04-21 17:14 | NUR ---
ORTHOSTATIC BP LYING 129/61, 67 SITTING 137/56, 76 STANDING 153/62, 81
--- NOTE | 2019-04-21 17:26 | NUR ---
FSBS 238. 8 UNITS HUMALOG ADMINISTERED PER SLIDING SCALE. ALL CARDIAC STRESS TEST COMPLETE AT THIS TIME. NO DISTRESS. FAMILY AT BEDSIDE.
--- NOTE | 2019-04-21 19:00 | NUR ---
PATIENT LAYING IN BED. NO COMPLAINTS AT THIS TIME. NO DISTRESS NOTED. FAMILY AT BEDSIDE.
--- NOTE | 2019-04-21 19:20 | NUR ---
MEDICATED FOR NAUSEA AT THIS TIME. NO DISTRESS. FAMILY AT BEDSIDE. ONCOMING NURSE INTRODUCED TO PATIENT AT BEDSIDE.
--- NOTE | 2019-04-21 19:38 | NUR ---
PATIENT TO CT WITH HOSPITAL STAFF VIA WHEELCHAIR.
--- NOTE | 2019-04-21 19:58 | NUR ---
PATIENT BACK FROM CT ESCORTED BY HOSPITAL STAFF VIA WHEELCHAIR.
[2019-04-21 20:00] VITALS: BP 115/60
--- NOTE | 2019-04-22 02:26 | NUR ---
I have reviewed this patient and I concur with the Shift Assessment completed by the Licensed Practical Nurse today this shift.
--- NOTE | 2019-04-22 02:32 | NUR ---
PATIENT LAYING IN BED. NO COMPLAINTS AT THIS TIME. NO DISTRESS NOTED.
[2019-04-22 04:00] VITALS: BP 117/67
[2019-04-22 05:08] LABS: BASOPHILS 0.4 % (0-2); HEMATOCRIT 36.6 % (42.0-54.0); HEMOGLOBIN 12.4 g/dL (13.5-17.5); IMMATURE GRANULOCYTES 0.1 % (0-5); LYMPHOCYTES 32.6 % (15-50); MCH 30.8 pg (26.0-34.0); MCHC 33.9 g/dL (31.0-37.0); MEAN PLATELET VOLUME 11.1 fL (7.4-10.4); MONOCYTES 6.7 % (2-11); NEUTROPHILS 55.2 % (40-80); PLATELET COUNT 133 10x3/uL (130-400); RBC 4.02 10x6/uL (4.20-6.10); RDW 13.9 % (11.5-14.5); WBC 6.8 10x3/uL (4.8-10.8)
[2019-04-22 05:38] LABS: ANION GAP 13.6 mmol/L (8-16); CALCIUM 8.8 mg/dL (8.5-10.1); CARBON DIOXIDE 26.7 mmol/L (21.0-32.0); CREATININE - SERUM 1.4 mg/dL (0.6-1.3); MAGNESIUM - SERUM 1.6 mg/dL (1.8-2.4); PHOSPHOROUS 3.6 mg/dL (2.5-4.9); POTASSIUM - SERUM 4.3 mmol/L (3.5-5.1)
--- NOTE | 2019-04-22 07:34 | NUR ---
REPORT RECEIVED. WILL CONTINUE WITH POC. PT CURRENTLY PREPARING FOR A SHOWER. PT IS AAO AND UP AD SALLIE. PT WAS SHAVING UPON ENTERING THE ROOM. RR EVEN AND UNLABORED ON RA. R.AC PIV IS SALINE LOCKED AND WRAPPED FOR SHOWER. NO S/S OF DISTRESS NOTED. PT DENIES ANY NEEDS. WILL CTM.
[2019-04-22 08:39] VITALS: BP 78/47
--- NOTE | 2019-04-22 09:21 | NUR ---
AM MEDICATIONS ADMINSITERED. PREVIOUS PIV INFILTRATED. REMOVED PIV WITH CATHETER TIP FULLY INTACT. PT DENIES ANY NEEDS. WILL CTM.
[2019-04-22 11:40] VITALS: BP 110/45
--- NOTE | 2019-04-22 13:32 | NUR ---
I have reviewed this patient and I concur with the Shift Assessment completed by the Licensed Practical Nurse today this shift.
[2019-04-22 18:36] VITALS: BP 103/42
--- NOTE | 2019-04-22 19:00 | NUR ---
PATIENT LAYING IN BED. FAMILY AT BEDSIDE. DR. GALEANO IN ROOM. NO DISTRESS NOTED.
[2019-04-22 20:00] VITALS: BP 131/60
--- NOTE | 2019-04-23 01:15 | NUR ---
PATIENT LAYING IN BED. EYES CLOSED, CHEST RISING AND FALLING. NO DISTRESS NOTED.
[2019-04-23 04:00] VITALS: BP 138/66
--- NOTE | 2019-04-23 04:03 | NUR ---
I have reviewed this patient and I concur with the Shift Assessment completed by the Licensed Practical Nurse today this shift.
[2019-04-23 06:51] LABS: BASOPHILS 0.7 % (0-2); EOSINOPHILS 4.2 % (0-7); HEMATOCRIT 38.2 % (42.0-54.0); HEMOGLOBIN 12.9 g/dL (13.5-17.5); IMMATURE GRANULOCYTES 0.3 % (0-5); LYMPHOCYTES 31.7 % (15-50); MCH 30.9 pg (26.0-34.0); MCHC 33.8 g/dL (31.0-37.0); MCV 91.6 fL (80.0-100.0); MEAN PLATELET VOLUME 11.3 fL (7.4-10.4); MONOCYTES 7.6 % (2-11); NEUTROPHILS 55.5 % (40-80); PLATELET COUNT 150 10x3/uL (130-400); RBC 4.17 10x6/uL (4.20-6.10); RDW 13.9 % (11.5-14.5); WBC 7.3 10x3/uL (4.8-10.8)
--- NOTE | 2019-04-23 07:05 | NUR ---
REPORT RECEIVED AND CARE ASSUMED AT THIS TIME. HE IS LYING SUPINE IN BED. ANSWERS TO NAME AND IS ALERT. PLEASANT WITH CL IN REACH. CAREPLAN REVIEWED. HE HAS EVENT MONITOR ON FROM HOME. SALINE LOCK SITE IS CLEAR. RESP EVEN WITHOUT LABOR.
[2019-04-23 07:17] LABS: ANION GAP 13.7 mmol/L (8-16); CALCIUM 9.2 mg/dL (8.5-10.1); CARBON DIOXIDE 28.1 mmol/L (21.0-32.0); CREATININE - SERUM 1.6 mg/dL (0.6-1.3); MAGNESIUM - SERUM 1.6 mg/dL (1.8-2.4); PHOSPHOROUS 3.7 mg/dL (2.5-4.9); POTASSIUM - SERUM 4.8 mmol/L (3.5-5.1)
[2019-04-23 08:10] VITALS: BP 120/59
[2019-04-23 11:37] VITALS: BP 128/55
--- NOTE | 2019-04-23 11:49 | NUR ---
HUMALOG GIVEN PER SLIDING SCALE ORDERS AT THIS TIME DUE TO FSBS WAS 333. HE DENIES ANY C/O. HE IS SITTING UP ON SIDE OF THE BED VISITING WITH FAMILY AT BEDSIDE. RESP EVEN WITHOUT LABOR CL IN REACH. CONTINUE CURRENT PLAN OF CARE AND MONITOR.
--- NOTE | 2019-04-23 13:00 | NUR ---
PHYSICAL THERAPY CAME BY AND ASSESSED HIM AND STATED HE COULD AMBULATE WITH HIS FAMILY ABOUT IN HALLWAY. THEY ARE AWARE. HE DID GET UP AND AMBULATE AROUND NURSES STATION AND TOLERATED IT WELL.
[2019-04-23 14:03] VITALS: BMI 33.7
[2019-04-23] MEDS ORDERED: VIBRAMYCIN 100100 MG PO (14:12)
--- NOTE | 2019-04-23 14:30 | NUR ---
NO C/O VOICED AT THIS TIME. SITTING IN BED VISITING WITH FAMILY AND ON THE PHONE WITH HIS SISTER. RESP EVEN WITHOUT LABOR. NO CHANGE IN LEGS. CL IN REACH.
[2019-04-23 14:38] VITALS: BP 117/63
--- NOTE | 2019-04-23 16:05 | NUR ---
DISCHARGE PAPERS GIVEN TO HIM AND FAMILY. EXPLAINED IN DETAIL AND HE VOICED UNDERSTANDING. EDUCATION GIVEN AND I DISCUSSED HOW IMPORTANT IT IS TO TAKE ALL OF HIS PRESCRIBED ANTIBIOTICS EVEN IF LEGS GET BETTER TO FINISH HIS PILLS. HIS COPY OF DISCHARGE PAPERS AND EDUCATION WAS PROVIDED TO HIM
--- NOTE | 2019-04-23 16:27 | NUR ---
TRANSPORTED DOWN TO PERSONAL AUTO. ALERT OFFERS NO C/O AT THIS TIME. VITAL SIGNS STABLE.
--- NOTE | 2019-04-23 16:44 | MORECARE ---
CASE MANAGEMENT DISCHARGE SUMMARY PATIENT: ANITA VALADEZ UNIT: [id number] ADM DATE: 04/20/19 AGE: 83 : 33 SEX: M ROOM/BED: D.2130 AUTHOR: KATRINA HINES PHYSICIAN: REFERRING PHYSICIAN: RAH LAIRD DO DATE OF SERVICE: 04/23/19 Discharge Plan Patient Name: ANITA VALADEZ Facility: [facility]:[place] : 1935 Planned Disposition: Home Anticipated Discharge Date: 04/23/19 Discharge Date: 04/23/2019 Expected LOS: 3 Initial Reviewer: [id number] Initial Review Date: 04/23/2019 Generated: 04/23/19 5:44 pm DCPIA - Discharge Planning Initial Assessment Updated by COURTNEY: Pranay Grimes on 04/23/19 4:43 pm * Is the patient Alert and Oriented? Yes * How many steps to enter\exit or inside your home? * PCP DR LAIRD * Pharmacy [facility] ([place] * Preadmission Environment Independent [facility] Apartment * Other Environment [facility] * Facility Name [facility] * ADLs Independent * Equipment Rolling Walker * Other Equipment ROLLATOR WALKER - NO MEDICLA EQUIPMENT PROVIDER PREFERENCE * List name and contact numbers for known caregivers / representatives who currently or will assist patient after discharge: MARY GOODMAN, DTR, * Verbal permission to speak to the caregivers and representatives has been obtained from the patient. Yes * Community resources currently utilized None * Please name any agencies selected above. NONE * Additional services required to return to the preadmission environment? No * Can the patient safely return to the preadmission environment? Yes * Has this patient been hospitalized within the prior 30 days at any hospital? No Coverage Notice Reviewer: [id number] - Pranay Grimes Notice Issued Date-Time: 04/23/2019 15:25 Notice Type: IM Discharge Notice Notice Delivered To: Patient Relationship to Patient: Tourist Home Keeper Name: Delivery Method: HAND - Hand Delivered Ayesha Days: Prior Verbal Notification: Recipient Understood Notice: Yes Recipient Signature: Yes Med Rec Note Co-signed by Attending: Coverage Notice Comment: Patient Name: ANITA VALADEZ Page [id number] at 1644 All edits/amendments must be made on the electronic document DICTATION DATE: 04/23/191643 MILL AND COAL TRANSPORT OPERATOR: LUZMA 04/23/191643 RPT#: [id number] DC DATE:04/23/19 STATUS: DIS IN [facility] [address] [facility] [place] [address] END OF REPORT
--- NOTE | 2019-04-23 16:55 | MORECARE ---
CASE MANAGEMENT DISCHARGE SUMMARY PATIENT: ANITA VALADEZ UNIT: [id number] ADM DATE: 04/20/19 AGE: 83 : 33 SEX: M ROOM/BED: D.2130 AUTHOR: FLORA,DOC PHYSICIAN: REFERRING PHYSICIAN: RAH LAIRD DO DATE OF SERVICE: 04/23/19 Discharge Plan Patient Name: ANITA VALADEZ Facility: [facility]:[place] : 1935 Planned Disposition: Home Anticipated Discharge Date: 04/23/19 Discharge Date: 04/23/2019 Expected LOS: 3 Initial Reviewer: [email or web address] Initial Review Date: 04/23/2019 Generated: 04/23/19 5:55 pm Comments DCP- Discharge Planning Updated by [email or web address]: Pranay Grimes on 04/23/19 3:[address] Patient Name: ANITA VALADEZ Admission Status: Urgent Accout number: [id number] Admission Date: 04-20-2019 : 1935 Admission Diagnosis:CELLULITIS OF LEFT LOWER LIMB Attending: RAH LAIRD Current LOS: 3 Anticipated DC Date: 04-23-2019 Planned Disposition: Home Primary Insurance: MEDICARE A & B Discharge Planning Comments: CM MET WITH PT IN ROOM TO DISCUSS DISCHARGE PLANNING AND NEEDS. PT REPORTS LIVING AT HOME INDEPENDENTLY AND ALONE IN [facility]. PT HAS ROLLATOR WALKER WITH NO MEDICAL EQUIPMENT PROVIDER PREFERENCE. PT HAS NO OUTSIDE SERVICES ASSISTING IN THE HOME. PT HAS MEAL PREPARATION, TRANSPORTATION AND HOUSKEEPING SERVICES. CM DISCUSSED AVAILABILITY OF HOME HEALTH, REHAB SERVICES AND MEDICAL EQUIPMENT. PT DENIES DISCHARGE NEEDS, REPORTS HIS FAMILY WILL PICK HIM UP FOR DISCHARGE HOME. IMPORTANT MESSAGE FROM MEDICARE PROVIDED AND EXPLAINED. Special Programs Director: Pranay Grimes DCPIA - Discharge Planning Initial Assessment Updated by [email or web address]: Pranay Grimes on 04/23/19 4:43 pm * Is the patient Alert and Oriented? Yes * How many steps to enter\exit or inside your home? * PCP DR LAIRD * Pharmacy [facility] ([place]) * Preadmission Environment [facility] * Other Environment INDEPENDENT LIVING APARTMENT * Facility Name [facility] * ADLs Independent * Equipment Rolling Walker * Other Equipment ROLLATOR WALKER - NO MEDICLA EQUIPMENT PROVIDER PREFERENCE * List name and contact numbers for known caregivers / representatives who currently or will assist patient after discharge: MARY GOODMAN, DTR, * Verbal permission to speak to the caregivers and representatives has been obtained from the patient. Yes * Community resources currently utilized None * Please name any agencies selected above. NONE * Additional services required to return to the preadmission environment? No * Can the patient safely return to the preadmission environment? Yes * Has this patient been hospitalized within the prior 30 days at any hospital? No Coverage Notice Reviewer: [id number] Briana Grimes Notice Issued Date-Time: 04/23/2019 15:25 Notice Type: IM Discharge Notice Notice Delivered To: Patient Relationship to Patient: Therapist Speech Name: Delivery Method: HAND - Hand Delivered Ayesha Days: Prior Verbal Notification: Recipient Understood Notice: Yes Recipient Signature: Yes Med Rec Note Co-signed by Attending: Coverage Notice Comment: Last DP export: 04/23/19 3:44 p Patient Name: ANITA VALADEZ Page [id number] at 1655 All edits/amendments must be made on the electronic document DICTATION DATE: 04/23/191653 B[employer]ALL CLUB MANAGER: LUZMA 04/23/191653 RPT#: [id number] DC DATE:04/23/19 STATUS: DIS IN [facility] [address] [place] [address] END OF REPORT
--- NOTE | 2019-04-24 13:25 | ST ---
PATIENT:ANITA VALADEZ MEDICAL RECORD: [id number] SEX: M LOCATION:D. D.213 ORDER #: ADMISSION DATE: 04/20/19 AGE OF PATIENT: 83 REFERRING PHYSICIAN: INTERPRETING PHYSICIAN: BETZAIDA MCCABE MD DATE OF SERVICE: 04/21/2019 PROCEDURE: Nuclear stress test He was exercised on standard Lexiscan protocol with 31 mCi of sestamibi injected at peak stress, 13 mCi used previously for rest images. FINDINGS: Gated SPECT reveals preserved ejection fraction at 69% with good wall motion and thickening and brightening throughout all segments. SPECT imaging Cardiolite was used as myocardial fusion agent. There is homogeneous uptake throughout all segments at rest and stress with no evidence of inducible ischemia or previous infarction. OVERALL IMPRESSION: 1. This is a normal nuclear stress test with no evidence of inducible ischemia or previous infarction. 2. Gated SPECT reveals a preserved ejection fraction at 69%. In this patient with ongoing symptomatology, the current scan does not suggest the presence of hemodynamically significant coronary artery disease. Evaluate noncardiac etiology of chest pain. TRANSINT:[id number] Voice Confirmation ID: [id number] DOCUMENT ID: [id number] BETZAIDA MCCABE MD at 1325 CC: RAH LAIRD DO [id number] DICTATION DATE: 04/22/19 1202 PRODUCT CONTROLLER: 04/23/19 0228 DIS IN 04/23/19 [id number] [place] [address]
== END 2019-04-23 16:29 | disposition home or self-care (01) | DRG 603 ==
LOC: D.M2 16:21
PROVIDERS: Internal Medicine Nephrology; ADMIT Family Medicine; ATTEND Family Medicine
DX: L03.116 Cellulitis of left lower limb (principal); N17.9 Acute kidney failure, unspecified; I82.5Z2 Chronic embolism and thrombosis of unspecified deep veins of left distal lower extremity; E72.12 Methylenetetrahydrofolate reductase deficiency; L03.115 Cellulitis of right lower limb; E11.9 Type 2 diabetes mellitus without complications; I10 Essential (primary) hypertension; E78.5 Hyperlipidemia, unspecified; I25.10 Atherosclerotic heart disease of native coronary artery without angina pectoris; I95.1 Orthostatic hypotension; D64.9 Anemia, unspecified; K21.9 Gastro-esophageal reflux disease without esophagitis; Z79.01 Long term (current) use of anticoagulants; Z86.73 Personal history of transient ischemic attack (TIA), and cerebral infarction without residual deficits; E86.9 Volume depletion, unspecified; I65.23 Occlusion and stenosis of bilateral carotid arteries

== ENCOUNTER → 2019-09-11 10:29 | Outpatient (CLI) | payer MEDICARE, BC ==
[~2019-09-11 10:29] MED LIST changes: +FOLIC ACID1 MG PO; +LANTUS SOL100 UNIT/1 SC; +NOVOLOG100 UNIT/1 SC; +VIBRAMYCIN 100100 MG PO
== END | disposition home or self-care (01) ==
LOC: D.RT 10:29
PROVIDERS: ATTEND Internal Medicine Pulmonary Disease
DX: J44.9 Chronic obstructive pulmonary disease, unspecified (principal); G45.9 Transient cerebral ischemic attack, unspecified; R06.09 Other forms of dyspnea

== ENCOUNTER 2020-01-19 00:58 | Inpatient (IN) | payer MEDICARE, BC ==
[~2020-01-19] VITALS: Ht 188 cm; Wt 120.5 kg
[2020-01-19] VITALS (11 sets, daily range): BP systolic 100–129; BP diastolic 53–74; Ht 188 cm; Wt 120.5 kg
--- NOTE | ~2020-01-19 | HEMODYNAMI ---
PATIENT:ANITA VALADEZ MEDICAL RECORD: [id number] : 31 [address] [id number] ADMISSION DATE: 01/19/20 Generatedon:01/19/202010:25 Patient name: ANITA VALADEZ Patient #: [id number] : 1935 Date of study: 01/19/2020 Page: Of Hemodynamic Procedure Report Patient Data Patient Demographics Procedure consent was obtained First Name: ANITA Gender: Male Last Name: RORY : 1935 Middle Initial: A Age: 84 year(s) Patient #: [id number] Race: SSN: [id number] Additional ID: [id number] Contact details Address: [address] [place] [address] [address] State: [place] City: [facility] Zip code: [address] Past Medical History History of disease Date Diagnosis Comments CAD Allergies Allergen Reaction Date Comments Reported Penicillins 01/19/2020 Admission Admission Data Admission Date: 01/19/2020 Admission Time: 4:42 Arrival Date: 01/19/2020 Arrival Time: 4:42 Admit Source: Emergency Insurance Payor: Medicare department [facility] #: [id number] Room #: [facility]4 Height (in.): 72 BSA: 2.4 (m2) Height (cm.): 182.88 BMI: 36.08 (kg/m2) Weight (lbs.): 266 Weight (kg.): 120.66 Lab Results Lab Result Date: 01/19/2020 Lab Result Time: 0:00 Biochemistry Name Units Result Min Max BUN mg/dl 32 --(----)-* 7 18 Creatinine mg/dl 1.4 --(----)*- 0.6 1.3 eGFR ml/min 51 *-(----)-- 90 120 NONAFRICAN CBC Name Units Result Min Max Hematocrit % 42.5 --(*---)-- 42 54 Hemoglobin g/dl 13.9 --(*---)-- 13.5 17.5 Procedure Procedure Types Cath Procedure Diagnostic Procedure LHC Coronaries only Sedation Charges Moderate Sedation up to 30 minutes PCI Procedure Coronary Stent Coronary Stent Initial Procedure Description Procedure Date Procedure Date: 01/19/2020 Procedure Start Time: 9:47 Procedure End Time: 10:18 Procedure Staff Name Function Gomez Neff MD Performing Physician Latha Khan RT Scrub Sunita Alfaro RN Nurse Micaela Mark RT Monitor Indication Angina Procedure Data Cath Procedure Fluoroscopy Diagnostic fluoroscopy Total fluoroscopy Time: 9.8 time: 9.8 min min Diagnostic fluoroscopy Total fluoroscopy dose: dose: 1827 mGy 1827 mGy Contrast Material Contrast Material Type Amount (ml) Isovue 300 95 Entry Location Entry Primary Successful Side Size Upsize Upsize Entry Closure Succes sful Closure Location (Fr) 1 (Fr) 2 (Fr) Remarks Device Remarks Femoral Right 5 Fr 6 Fr 6 Fr Exoseal artery Long Short Estimated blood loss: 5 ml Diagnostic catheters Device Type Used For End Catheter Placement MULTIPACK JL 4.0 5Fr Left Coronary catheter Angiography DIAGNOSTIC JL 4.0 5Fr Left Coronary catheter ([id number]) Angiography MULTIPACK 3DRC 5Fr Right Coronary catheter Angiography Procedure Complications No complications Procedure Medications Medication Administration Route Dosage 0.9% NaCl I.V. 100 ml/hr Oxygen etCO2 Nasal cannula 2 l/min Lidocaine 2% added to field 20 Heparin Flush Bag added to field 2 bags (1000units/500ml NS) Versed I.V. 2 mg Fentanyl I.V. 50 mcg Heparin Bolus I.V. 5000 units Integrilin (Bolus I.V. 10.7 ml 2mg/ml) Integrilin Drip I.V. drip 9.5 ml/hr (75mg/100ml) Hemodynamics Rest BSA: 2.4 (m2) HGB: 13.9 (g/dl) O2 Consumption: Estimated: 271.1 (ml/min) O2 Cons umption indexed: Estimated:112.96 (ml/min/m) Heart Rate: 69 (bpm) Snapshots Pre Cath Intra NCS Post Cath Vital Signs Time Heart Resp SPO2 etCO2 NIBP (mmHg) Rhythm Pain Sedation Rate (ipm) (%) (mmHg) Status Level (bpm) 9:38:40 72 19 98 17.3 148/87(126) NSR 0 (11) 10(A) , No pain 9:42:56 78 10 97 26 118/68(87) NSR 0 (11) 10(A) , No pain 9:47:06 72 13 97 25.7 118/71(98) NSR 0 (11) 9(A) , No pain 9:51:16 68 12 97 22.7 102/65(95) NSR 0 (11) 9(A) , No pain 9:55:20 69 12 97 24.2 110/66(83) NSR 0 (11) 9(A) , No pain 9:59:30 69 13 96 27.2 103/62(84) NSR 0 (11) 9(A) , No pain 10:03:38 69 13 97 25.7 98/58(82) NSR 0 (11) 9(A) , No pain 10:07:41 71 14 97 24.2 101/62(84) NSR 0 (11) 9(A) , No pain 10:11:47 70 13 97 24.2 107/64(97) NSR 0 (11) 9(A) , No pain 10:15:51 73 14 97 24.2 113/76(94) NSR 0 (11) 10(A) , No pain Medications Time Medication Route Dose Verified Delivered Reason Notes Effectiveness by by 9:37:51 0.9% NaCl I.V. 100 Gomez Jollya used for ml/hr [place] [facility] procedure MD ABDI 9:37:57 Oxygen etCO2 2 Gomez Sunita used for Nasal l/min [facility] procedure cannula MD ABDI 9:38:01 Lidocaine 2% added 20ml Gomez Dyer for local to vial [facility] anesthetic field MD JADE 9:38:05 Heparin Flush added 2 Gomez Collazoory used for Bag to bags [facility] procedure (1000units/500ml field MD JADE NS) 9:41:05 Versed I.V. 2 mg Gomez Jollya for sedation St Justyn Alfaro MD, RN 9:41:10 Fentanyl I.V. 50 Gomez Sunita for sedation mcg St Justyn Alfaro MD, RN 9:59:06 Heparin Bolus I.V. 5000 Gomez Dorsey for verif ied units [place] [facility] anticoagulation with Dr. MD ABDI [place] 9:59:19 Integrilin I.V. 10.7 Gomez Sunita for (Bolus 2mg/ml) ml St Justyn Alfaro antiplatelet RN therapy 10:12:46 Integrilin Drip I.V. 9.5 Gomez Drosey for (75mg/100ml) drip ml/hr St Justyn Alfaro antiplatelet RN therapy Procedure Log Time Note 9:04:48 Informed consent obtained and on chart 9:05:22 Procedure Status Urgent Heart Cath (IP). 9:05:23 Time tracking: Regular hours (M-F 7:00 - 5:00) 9:05:26 Plan of Care:Hemodynamics will remain stable., Cardiac rhythm will remain stable., Comfort level will be maintained., Respiratory function will remain adequate., Patient/ family verbilizes understanding of procedure., Procedure tolerated without complication., Recovers from procedure without complications.. 9:05:34 H&P Date Dictated: 01/19/2020 ER History on chart.. 9:05:43 Patient allergic to Penicillins 9:06:23 Lab Result : BUN 32 mg/dl 9:06:23 Lab Result : Creatinine 1.4 mg/dl 9:06:23 Lab Result : eGFR NONAFRICAN 51 ml/min 9:06:23 Lab Result : Hemoglobin 13.9 g/dl 9:06:23 Lab Result : Hematocrit 42.5 % 9:07:57 Patient Weight : 266 lbs 9:08:06 Patient Height : 72 inches 9:08:14 Admit Source: Emergency department 9:09:59 Stress Test: no; N/A ? 9:10:02 Risk of Mortality: 6.2 9:10:04 Risk of blood transfusion: 1 9:10:07 Risk of ANA MARIA: 7.8 9:11:18 Indication : Angina 9:17:20 Latha Khan RT(R) sent for patient. Start room use. 9:37:28 Patient received from Med II to CCL 2 Alert and oriented. Tansferred to table in Supine position. 9:37:29 Warm blankets applied, and alea hugger turned on for patient comfort. 9:37:29 Correct patient and procedure confirmed by team. 9:37:30 ECG and BP/O2 sat monitors applied to patient. 9:37:31 Vital chart was started 9:37:32 Baseline sample Acquired. 9:37:37 Rhythm: sinus rhythm 9:37:38 Full Disclosure recording started 9:37:39 Pre-procedure instructions explained to patient. 9:37:39 Pre-op teaching completed and patient verbalized understanding. 9:37:40 Family in patients room. 9:37:50 Is the patient allergic to Iodine/contrast media? No. 9:37:51 0.9% NaCl 100 ml/hr I.V. was administered by Sunita Alfaro RN; used for procedure; Verbal order read back and verified. 9:37:52 Was the patient premedicated? Yes 9:37:57 Oxygen 2 l/min etCO2 Nasal cannula was administered by Sunita Alfaro RN; used for procedure; Verbal order read back and verified. 9:38:01 Lidocaine 2% 20ml vial added to field was administered by Gomez Neff MD; for local anesthetic; Verbal order read back and verified. 9:38:05 Heparin Flush Bag (1000units/500ml NS) 2 bags added to field was administered by Gomez Neff MD; used for procedure; Verbal order read back and verified. 9:38:37 Is patient on blood thinner?No 9:38:38 Patient diabetic? Yes. 9:38:46 If diabetic: On Metformin? No 9:38:49 Previous problem with sedation/anesthesia? No ? 9:38:50 Snore? No 9:38:51 Sleep apnea? No 9:38:52 Deviated septum? No 9:38:53 Opens mouth fully? Yes 9:38:54 Sticks out tongue? Yes 9:38:58 Airway obstruction? No ? 9:39:01 Dentures? Yes out 9:39:05 Pre procedure: right dorsailis pedis pulse 2+ Normal; easily identifiable; not easily obliterated 9:39:07 Pre procedure: left dorsailis pedis pulse 2+ Normal; easily identifiable; not easily obliterated 9:39:12 Patient pain scale 0/10 ?. 9:39:18 IV patent on arrival in left forearm with 0.9% NaCl at [facility]. 9:39:20 Lab results completed and on chart. 9:39:27 Right groin area was prepped with chlora-prep and draped in sterile fashion 9:39:28 Alarms reviewed by R. N. 9:39:28 Sharps counted by scrub and verified by R.N. 9:39:31 Physician arrived 9:39:32 --------ALL STOP TIME OUT------ 9:39:32 Final Timeout: patient, procedure, and site verified with staff and physician. All members of the team are in agreement. 9:39:35 Right groin site verified by team. 9:39:40 Fire Safety Assessment: A--An alcohol-based skin anteseptic being used preoperatively., C--Open oxygen or nitrous oxide is being used., D--An ESU, laser, or fiber-optic light is being used. 9:39:45 Physical assessment completed. ASA score P 2 - A patient with mild systemic disease as per Gomez Neff MD. 9:40:09 3a) 45-59 Moderately reduced kidney function. 9:41:00 Maximum allowable contrast dose (3.7 X eGFR X 0.75)141 ml. 9:41:04 Sedation plan: IV Moderate Sedation Medication:Versed, Fentanyl 9:41:05 Versed 2 mg I.V. was administered by Sunita Alfaro RN; for sedation; Verbal order read back and verified. 9:41:10 Fentanyl 50 mcg I.V. was administered by Sunita Alfaro RN; for sedation; Verbal order read back and verified. 9:41:21 Use device set Femoral Dx 9:41:22 ACIST Syringe (08196) opened to sterile field. 9:41:22 Bag Decanter (2002S) opened to sterile field. 9:41:23 Medline Cath Pack ([id number]) opened to sterile field. 9:41:24 ACIST Hand Control (08486) opened to sterile field. 9:41:25 ACIST Manifold (00052) opened to sterile field. 9:41:25 DIAGNOSTIC Multipack 5Fr catheter set (JY8121) opened to sterile field. 9:41:26 Tegaderm 4 x 4 (1626W) opened to sterile field. 9:41:28 SHEATH 5FR Maurice (QHC120) opened to sterile field. 9:41:28 EMERALD Guide Wire (838-056) opened to sterile field. 9:45:01 Zero performed for pressure channel P1 9:47:25 Procedure started. 9:47:29 Local anesthetic to right femoral artery with Lidocaine 2% by Gomez Neff MD.INITIAL ACCESS ONLY 9:48:56 A 5 Fr sheath was inserted into the Right Femoral artery 9:49:38 Arrival Date: 01/19/2020 4:42:00 AM 9:50:02 Insurance Payor : Medicare 9:50:46 A MULTIPACK JL 4.0 5Fr catheter was advanced over the wire and used for Left Coronary Angiography. 9:51:27 LCA angiography performed. 9:51:30 Injector settings: Ml/sec: 3, Volume: 6, 9:51:43 Catheter removed. 9:51:58 A DIAGNOSTIC JL 4.0 5Fr catheter ([id number]) was advanced over the wire and used for Left Coronary Angiography. 9:55:18 LCA angiography performed. 9:55:22 Injector settings: Ml/sec: 3, Volume: 6, 9:55:31 Catheter removed. 9:56:03 A MULTIPACK 3DRC 5Fr catheter was advanced over the wire and used for Right Coronary Angiography. 9:56:37 RCA angiography performed. 9:56:42 Injector settings: Ml/sec: 3, Volume: 6, 9:56:50 Catheter removed. 9:57:08 SHEATH 6FR Destination (RSR01) opened to sterile field. 9:57:35 INFLATOR Merit BasixCompak (DO4070) opened to sterile field. 9:57:36 WHISPER 300cm guide wire ([id number]) opened to sterile field. 9:57:50 Proceeding to intervention. 9:57:58 Sheath upsized to a 6 Fr Long. 9:58:03 ACC Pre-intervention ALISA Flow is 3. 9:58:23 Pre PCI Site: [place] pLAD has 90% stenosis. 9:58:41 SHEATH 6FR Maurice (GRL991) opened to sterile field. 9:59:06 Heparin Bolus 5000 units I.V. was administered by Sunita Alfaro RN; for anticoagulation; verified with Dr. Beyer Verbal order read back and verified. 9:59:19 Integrilin (Bolus 2mg/ml) 10.7 ml I.V. was administered by Sunita Alfaro RN; for antiplatelet therapy; Verbal order read back and verified. 9:59:30 GUIDE 6FR JL 5.0 catheter (SS7EY23) opened to sterile field. 9:59:49 6 Fr JL 5 guide catheter was inserted over the wire 10:02:10 Guide Catheter removed. unable to cannulate vessel. 10:02:20 GUIDE 6Fr [place] 4.0 catheter (944959) opened to sterile field. 10:03:26 6 Fr TIGER 4.0 guide catheter was inserted over the wire 10:04:04 Guide Catheter removed. unable to cannulate vessel. 10:05:01 GUIDE 6FR AL 2.0 catheter ([id number]) opened to sterile field. 10:05:50 6 Fr AL 2 guide catheter was inserted over the wire 10:08:01 WHISPER wire advanced. 10:09:25 Wire advanced across lesion. 10:10:09 Inflate balloon Inflation number: 1 A EMERGE OTW 2.5 x 15 balloon ([id number]) was prepped and advanced across the Prox LAD 90, then inflated to 12 TIESHA for 0:10 (min:sec) 0. 10:10:45 Inflation number: 2 The EMERGE OTW 2.5 x 15 balloon ([id number]) was reinflated across the Prox LAD 0, to 12 TIESHA for 0:10 (min:sec) . 10:10:57 Balloon removed over the wire. 10:12:46 Integrilin Drip (75mg/100ml) 9.5 ml/hr I.V. drip was administered by Sunita Alfaro RN; for antiplatelet therapy; Verbal order read back and verified. 10:13:25 Place stent Inflation Number: 3 A INTEGRITY RX 3.0 x 15 stent ([id number]) was prepped and advanced across the Prox LAD 90. The stent was deployed at 14 TIESHA for 0:10 (min:sec) 0. 10:14:06 Stent catheter was removed intact over wire. 10:14:07 Wire removed. 10:14:07 Guide catheter removed. 10:14:17 EXOSEAL 6Fr (EX600) opened to sterile field. 10:14:49 Sheath upsized to a 6 Fr Short. 10:15:03 Sheath removed intact; hemostasis achieved with Exoseal to the Right Femoral artery. 10:15:05 Procedure ended.(Physican Out) 10:15:18 Fluoroscopy time 09.80 minutes. 10:15:22 Fluoroscopy dose: 1827 mGy 10:15:22 Flurop Dose total: 1827 10:15:28 Dose Area Product 60403 mGy/cm. 10:15:32 Contrast amount:Isovue 300 95ml. 10:16:13 Maximum allowable dose exceeded? No. 10:16:14 Sharps counted by scrub and verified by R.N. 10:16:15 Insertion/operative site no bleeding no hematoma. 10:16:17 Post-op/insertion site Right Femoral artery dressed using a 4 x 4 and Tegaderm. 10:16:18 Post Procedure Pulses reassessed and unchanged 10:16:22 Post procedure rhythm: unchanged. 10:17:17 Estimated blood loss: 5 ml 10:17:19 Post procedure instruction explained to patient.Patient verbalizes understanding. 10:17:19 Patient needs reinforcement of post procedure teaching. 10:18:05 Procedure type changed to Cath procedure, Diagnostic procedure, [facility], Coronaries only, Sedation Charges, Moderate Sedation up to 30 minutes, PCI procedure, Coronary Stent, Coronary Stent Initial 10:18:06 Procedure and supply charges have been captured, reviewed, submitted and are correct. 10:18:10 Procedure Complication : No complications 10:18:12 Vital chart was stopped 10:18:17 [facility] Findings: MVD- PCI performed (see procedure note) 10:18:18 Operative report dictated upon procedure completion. 10:18:20 See physician's report for complete and final results. 10:18:25 Report given to [facility]. 10:18:28 Patient transfered to [facility] with Stretcher. 10:18:31 Procedure ended. 10:18:31 Full Disclosure recording stopped 10:18:39 ACC-PCI Only Patient was given prescriptions, or instructed by Gomez Neff MD to start/continue the following medications upon discharge: Plavix 10:18:42 End room use (Document Last) 10:19:18 ACT drawn and resulted at 319 seconds. (normal therapeutic range 180-240 seconds). 10:23:30 End room use (Document Last) 10:24:04 End room use (Document Last) Intervention Summary Intervention Notes Time ActionType Lesion and Equipment Action# Pressure Duration Attributes Used 10:10:09 Inflate Prox LAD EMERGE OTW 1 12 00:10 balloon 2.5 x 15 balloon ([id number]) 10:10:45 Reinflate Prox LAD EMERGE OTW 2 12 00:10 balloon 2.5 x 15 balloon ([id number]) 10:13:25 Place stent Prox LAD INTEGRITY RX 3 14 00:10 3.0 x 15 stent ([id number]) Device Usage Item Name Manufacture Quantity Catalog Number Hospital Part Current Min imal Lot# / Charge Number Stock Stock Serial# Code ACIST Acist 1 04718 061832 405904 222078 20 Syringe Medical (06528) Systems Inc Bag Decanter Microtek 1 2001S 556900 46170 788461 5 () Medical Inc. Medline Cath Medline 1 [id number] 318312 51991 184847 5 Pack ([id number]) ACIST Hand Acist 1 50969 510655 639040 944475 5 Control Medical (02373) Systems Inc ACIST Acist 1 35658 782396 337871 404077 5 Manifold Medical (87846) Systems Inc DIAGNOSTIC Cardinal 1 EO3373 521610 97726 453577 30 Soundsupply 5Fr catheter set (MG8759) Tegaderm 4 x 3M 1 1626W 630470 316117 099667 5 4 (1626W) SHEATH 5FR Terumo 1 KZP199 030502 333387 993787 5 Maurice (EAL487) EMERALD Cardinal 1 502-455 006647 864471 452520 5 Guide Wire Health (502-455) MULTIPACK JL Cardinal 1 109439 5 4.0 5Fr Health catheter DIAGNOSTIC Cardinal 1 118207Z 834114 012232 036244 10 JL 4.0 5Fr Health catheter (564650R) MULTIPACK Cardinal 1 696852 5 3DRC 5Fr Health catheter SHEATH 6FR Terumo 1 RSR01 844429 28102 174970 5 Destination (RSR01) INFLATOR Merit 1 YH9158 377259 078488 211526 15 [facility] Medical BasixCompak (WL4036) WHISPER Rolle 1 [id number] 968170 188202 542690 5 300cm guide Vascular wire ([id number]) SHEATH 6FR Terumo 1 SGC429 016681 061501 052402 40 Maurice (MSL988) GUIDE 6FR JL Medtronic 1 VM3GE69 646943 99556 987166 1 5.0 catheter (BI5EQ30) GUIDE 6Fr Terumo 1 406311 533958 905294 620615 1 [place] 4.0 catheter (171343) GUIDE 6FR AL Medtronic 1 IV0XV11 192288 38679 900650 1 2.0 catheter (TK0AW03) EMERGE OTW Hi Hat 1 [id number] 911356 445041 019740 5 [id number] 2.5 x 15 Scientific balloon ([id number]) INTEGRITY RX Medtronic 1 [id number] 377050 811881 870891 5 [id number] 3.0 x 15 stent ([id number]) EXOSEAL 6Fr Cardinal 1 EX600 949972 667591 014636 10 (EX600) Health Signature Audit [place] Stage Time Signature Unsigned Intra-Procedure 01/19/2020 Micaela Mark 10:23:30 AM RT(R) Intra-Procedure 01/19/2020 Sunita Alfaro 10:24:04 AM RN Intra-Procedure 01/19/2020 Gomez Garcia 10:25:00 AM Justyn JADE Signatures Performing Physician : Signature : Gomez Neff MD Date : Time : Nurse : Sunita Alfaro RN Signature : Date : Time : Monitor : Micaela Mark RT Signature : Date : Time : [facility] [address], [place] [address]
[2020-01-19 01:56] LABS: ANION GAP 11.7 mmol/L (8-16); CALCIUM 9.1 mg/dL (8.5-10.1); CARBON DIOXIDE 29.6 mmol/L (21.0-32.0); CREATININE - SERUM 1.4 mg/dL (0.6-1.3); POTASSIUM - SERUM 4.3 mmol/L (3.5-5.1)
[2020-01-19 02:11] LABS: BASOPHILS 0.4 % (0-2); EOSINOPHILS 2.8 % (0-7); HEMATOCRIT 42.5 % (42.0-54.0); HEMOGLOBIN 13.9 g/dL (13.5-17.5); IMMATURE GRANULOCYTES 0.2 % (0-5); LYMPHOCYTES 27.9 % (15-50); MCH 31.2 pg (26.0-34.0); MCHC 32.7 g/dL (31.0-37.0); MCV 95.5 fL (80.0-100.0); MEAN PLATELET VOLUME 11.1 fL (7.4-10.4); MONOCYTES 5.7 % (2-11); PLATELET COUNT 163 10x3/uL (130-400); RBC 4.45 10x6/uL (4.20-6.10); RDW 13.4 % (11.5-14.5); WBC 8.1 10x3/uL (4.8-10.8)
[2020-01-19 02:12] LABS: APTT 45.4 SECONDS (22.8-39.4); INR 1.2 (0.85-1.17); PROTIME 15.1 SECONDS (11.6-15.0)
[2020-01-19 02:13] LABS: D-DIMER-QUANTITATIVE 0.28 ug/mLFEU (0.20-0.54)
[2020-01-19 02:20] LABS: ALBUMIN 3.9 g/dL (3.4-5.0); BILIRUBIN - TOTAL 0.58 mg/dL (0.2-1.3); MAGNESIUM - SERUM 1.7 mg/dL (1.8-2.4); THYROID STIMULATING HORMONE 3.17 uIU/mL (0.36-3.74)
[2020-01-19 02:21] LABS: TROPONIN-I 0.112 ng/mL (0.000-0.060)
--- NOTE | 2020-01-19 05:38 | NUR ---
I have reviewed this patient and I concur with the Shift Assessment completed by the Licensed Practical Nurse today this shift.
--- NOTE | 2020-01-19 06:05 | NUR ---
TO BED LOCKED AND LOW VIA STRETCHER FROM ER VS AND WT DONE STANDING HEPRIN CONT AT 1000MG/HR
[2020-01-19 07:03] LABS: CHOL - HDL RATIO 4.2 ratio (2.3-4.9); LDL-HDL RATIO 2.4 ratio (1.5-3.5)
[2020-01-19 08:41] LABS: BASOPHILS 0.5 % (0-2); EOSINOPHILS 3.5 % (0-7); HEMATOCRIT 40.6 % (42.0-54.0); HEMOGLOBIN 13.3 g/dL (13.5-17.5); IMMATURE GRANULOCYTES 0.2 % (0-5); LYMPHOCYTES 33.7 % (15-50); MCHC 32.8 g/dL (31.0-37.0); MCV 94.6 fL (80.0-100.0); MEAN PLATELET VOLUME 10.9 fL (7.4-10.4); MONOCYTES 6.2 % (2-11); NEUTROPHILS 55.9 % (40-80); PLATELET COUNT 153 10x3/uL (130-400); RBC 4.29 10x6/uL (4.20-6.10); RDW 13.4 % (11.5-14.5); WBC 8.5 10x3/uL (4.8-10.8)
[2020-01-19 09:21] LABS: CALCIUM 8.8 mg/dL (8.5-10.1); CARBON DIOXIDE 28.6 mmol/L (21.0-32.0); CHLORIDE - SERUM 104 mmol/L (98-107); CKMB 20.3 U/L (0.0-3.6); CREATINE KINASE 102 UL (21-232); CREATININE - SERUM 1.4 mg/dL (0.6-1.3); MAGNESIUM - SERUM 1.6 mg/dL (1.8-2.4); SODIUM 141 mmol/L (136-145); UREA NITROGEN 29 mg/dL (7-18); eGFR NON AFRICAN AMERICAN 51 mL/min (90-120)
[2020-01-19 09:23] LABS: CALC OSMOLALITY 292 mosm/kg (275-300); GLUCOSE 210 mg/dL (74-106)
[2020-01-19 09:25] LABS: INR 1.22 (0.85-1.17); PROTIME 15.3 SECONDS (11.6-15.0)
--- NOTE | 2020-01-19 09:31 | NUR ---
PRE-OPS GIVEN. TO SPLICER HELPER BY BED.
[2020-01-19 13:46] LABS: INR 1.18 (0.85-1.17); PROTIME 14.9 SECONDS (11.6-15.0)
[2020-01-19 13:50] LABS: CKMB 15.2 U/L (0.0-3.6); CREATINE KINASE 113 UL (21-232)
[2020-01-19 13:51] LABS: APTT 64.7 SECONDS (22.8-39.4); TROPONIN-I 5.925 ng/mL (0.000-0.060)
--- NOTE | 2020-01-19 14:53 | OP ---
PATIENT NAME: ANITA VALADEZ MEDICAL RECORD: [id number] :[birth year] LOCATION:D.M2 D.2114 ADMISSION DATE:01/19/20 SURGEON: KJ SALAZAR MD DATE OF OPERATION: 01/19/2020 PROCEDURE: Left heart catheterization, selective coronary angiography, plus percutaneous transluminal coronary angioplasty stent to the left anterior descending. 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 CORONARY ANATOMY: LEFT MAIN: Left main is free of disease. LAD: LAD has an almost ostial 90% plus stenosis, ALISA flow 2 distally, obviously a culprit artery. CIRCUMFLEX: Smallish circumflex, free of disease. RIGHT CORONARY ARTERY: Dominant artery, free of disease. IMPRESSION: Acute non-ST segment elevation myocardial infarction secondary to left anterior descending. PLAN: Intervention momentarily. DESCRIPTION OF PROCEDURE: A 5-Austrian sheath was exchanged for a long 6-Austrian sheath. We tried a miriade of guide catheters, finally able to engage with an AL2, this was followed by 300 cm Whisper wire, was placed across the tightly occluded 90% plus LAD stenosis down this portion of vessel. Pre-deployment balloon was a 2.5 x 12 Rooks balloon up to 14 atmospheres. Next, a 3.0 x 15 Integrity nondrug-eluting stent up to 14 atmospheres for 45 seconds. Final angiography shows excellent resolution of a 90% plus stenosis, no significant residual. ALISA flow improved from 2 to 3. Integrilin was used during the case. Sheath was closed with ExoSeal device. Again, AL2 guide was the final guide that fit and we did have to use a long sheath. TRANSINT:[id number] Voice Confirmation ID: [id number] DOCUMENT ID: [id number] KJ SALAZAR MD at 1453 CC: [id number] DICTATION DATE: 01/19/20 1027 STORE ASSOCIATE: 01/19/20 1145 ADM IN [id number] [place] [address]
--- NOTE | 2020-01-19 15:09 | NUR ---
BED REST UP. GROIN STABLE.
[2020-01-19] MEDS ORDERED: PLAVIX75 MG PO (18:02)
[2020-01-19 20:14] LABS: INR 1.21 (0.85-1.17); PROTIME 15.2 SECONDS (11.6-15.0)
[2020-01-19 20:22] LABS: CKMB 12.8 U/L (0.0-3.6); CREATINE KINASE 94 UL (21-232)
[2020-01-19 20:23] LABS: TROPONIN-I 4.175 ng/mL (0.000-0.060)
[2020-01-19 20:50] LABS: APTT 45.4 SECONDS (22.8-39.4)
--- NOTE | 2020-01-19 21:41 | NUR ---
EVENING ROUNDS COMPLETED. VSS, AAOX4, NO S/S OF RT DISTRESS. FAMILY @BEDSIDE. PT DENIES ANY FURTHER NEEDS AT THIS TIME. MEDS GIVEN. WILL CPOC. CL WITHIN REACH. WILL CTM.
[2020-01-20 00:16] VITALS: BP 150/69
[2020-01-20 02:49] LABS: BASOPHILS 0.5 % (0-2); HEMATOCRIT 38.3 % (42.0-54.0); HEMOGLOBIN 12.5 g/dL (13.5-17.5); IMMATURE GRANULOCYTES 0.1 % (0-5); LYMPHOCYTES 23.2 % (15-50); MCH 30.8 pg (26.0-34.0); MCHC 32.6 g/dL (31.0-37.0); MCV 94.3 fL (80.0-100.0); MEAN PLATELET VOLUME 10.5 fL (7.4-10.4); MONOCYTES 7.5 % (2-11); NEUTROPHILS 65.7 % (40-80); PLATELET COUNT 140 10x3/uL (130-400); RBC 4.06 10x6/uL (4.20-6.10); RDW 13.5 % (11.5-14.5)
[2020-01-20 02:58] LABS: APTT 44.2 SECONDS (22.8-39.4); INR 1.17 (0.85-1.17); PROTIME 14.8 SECONDS (11.6-15.0)
[2020-01-20 03:02] LABS: ANION GAP 9.3 mmol/L (8-16); CALCIUM 8.7 mg/dL (8.5-10.1); CARBON DIOXIDE 28.9 mmol/L (21.0-32.0); CREATININE - SERUM 1.3 mg/dL (0.6-1.3); MAGNESIUM - SERUM 1.6 mg/dL (1.8-2.4); PHOSPHOROUS 3.5 mg/dL (2.5-4.9); POTASSIUM - SERUM 4.2 mmol/L (3.5-5.1)
[2020-01-20 05:15] VITALS: BP 135/65
[2020-01-20 07:59] VITALS: BP 122/62
--- NOTE | 2020-01-20 08:40 | NUR ---
02 SATS 92% WHILE AMBULATING HALLWAY WITH ASSIST.
--- NOTE | 2020-01-20 09:52 | MORECARE ---
CASE MANAGEMENT DISCHARGE SUMMARY PATIENT: ANITA VALADEZ UNIT: [id number] ADM DATE: 01/19/20 AGE: 84 : [birth year] SEX: M ROOM/BED: D.2114 AUTHOR: KATRINA HINES PHYSICIAN: REFERRING PHYSICIAN: NOELLE HUA MD DATE OF SERVICE: 01/20/20 Discharge Plan Patient Name: [facility] VALADEZ [facility] [facility] 1935 Planned Disposition: Home Anticipated Discharge Date: 01/20/20 Discharge Date: Expected LOS: 1 Initial Reviewer: [email or web address] Initial Review Date: 01/20/2020 Generated: 01/20/20 10:51 am DCPIA - Discharge Planning Initial Assessment Updated by [email or web address]: Pranay Grimes on 01/20/20 9:49 am * Is the patient Alert and Oriented? Yes * How many steps to enter\exit or inside your home? * PCP DR LAIRD * Pharmacy [facility] * Preadmission Environment Independent [facility] * Other Environment [facility] * Facility Name [facility] * ADLs Independent * Equipment Rolling Walker * Other Equipment ROLLATOR WALKER, NO MEDICAL EQUIPMENT PROVIDER PREFERENCE * List name and contact numbers for known caregivers / representatives who currently or will assist patient after discharge: MARY GOODMAN, DTR, * Verbal permission to speak to the caregivers and representatives has been obtained from the patient. N/A * Community resources currently utilized None * Please name any agencies selected above. NONE * Additional services required to return to the preadmission environment? No * Can the patient safely return to the preadmission environment? Yes * Has this patient been hospitalized within the prior 30 days at any hospital? No Patient Name: ANITA VALADEZ Page [id number] at 0952 All edits/amendments must be made on the electronic document DICTATION DATE: 01/20/20950 STONE GRADER: LUZMA 01/20/20950 RPT#: [id number] DC DATE: STATUS: ADM IN [facility] [address] [place] [address] END OF REPORT
--- NOTE | 2020-01-20 10:19 | NUR ---
IV AND TELEMETRY DCD. DC PLANS GIVEN. UNDERSTANDING VOICED. ESCORTED TO CAR BY W/C.
== END 2020-01-20 10:21 | disposition home or self-care (01) | DRG 249 ==
LOC: D.ER 00:58 → D.M2 04:42
PROVIDERS: Family Medicine; Internal Medicine Cardiovascular Disease; Internal Medicine Interventional Cardiology; ADMIT Family Medicine; ATTEND Family Medicine
PROC: B2111ZZ Fluoroscopy of Multiple Coronary Arteries using Low Osmolar Contrast (ICD-10-PCS; 2020-01-19)
PROC: B2151ZZ Fluoroscopy of Left Heart using Low Osmolar Contrast (ICD-10-PCS; 2020-01-19)
PROC: 02703DZ Dilation of Coronary Artery, One Artery with Intraluminal Device, Percutaneous Approach (ICD-10-PCS; principal; 2020-01-19 09:15)
PROC: 4A023N7 Measurement of Cardiac Sampling and Pressure, Left Heart, Percutaneous Approach (ICD-10-PCS; 2020-01-19 09:15)
DX: I21.4 Non-ST elevation (NSTEMI) myocardial infarction (principal); N17.9 Acute kidney failure, unspecified; I10 Essential (primary) hypertension; E78.5 Hyperlipidemia, unspecified; I25.110 Atherosclerotic heart disease of native coronary artery with unstable angina pectoris; D64.9 Anemia, unspecified; E11.65 Type 2 diabetes mellitus with hyperglycemia

== ENCOUNTER 2020-05-25 15:02 | Inpatient (IN) | payer MEDICARE, BC ==
[~2020-05-25] VITALS: Ht 180.3 cm; Wt 124.3 kg
--- NOTE | ~2020-05-25 | HEMODYNAMI ---
PATIENT:ANITA VALADEZ MEDICAL RECORD: [id number] : 31 LOCATION:D.MS [id number] ADMISSION DATE: 05/25/20 Generatedon:05/30/202010:20 Patient name: ANITA VALADEZ Patient #: [id number] : 1935 Date of study: 05/30/2020 Page: Of Hemodynamic Procedure Report Patient Data Patient Demographics Procedure consent was obtained First Name: ANITA Gender: Male Last Name: RORY : 1935 Middle Initial: A Age: 84 year(s) Patient #: [id number] Race: SSN: [id number] Additional ID: [id number] Contact details [address]: [address] [place] [address] avenue State: [place] City: [facility] Zip code: [address] Past Medical History History of disease Date Diagnosis Comments CAD Allergies Allergen Reaction Date Comments Reported Penicillins 01/19/2020 Admission Admission Data Admission Date: 05/25/2020 Admission Time: 18:48 Room #: D.2217 Procedure Procedure Types Cath Procedure Peripheral Cath Diagnostic Procedure Abd/Extremity Extremities Right Lower Ext Arterio Procedure Description Procedure Date Procedure Date: 05/30/2020 Procedure Start Time: 8:55 Procedure Staff Name Function Justyn Wiggins MD Performing Physician Vimal Hernández RT Monitor Ashley HANSON RN Nurse LAUREN WING RT Scrub Procedure Data Cath Procedure Fluoroscopy Diagnostic fluoroscopy Total fluoroscopy Time: time: 10.3 min 10.3 min Diagnostic fluoroscopy Total fluoroscopy dose: 345 dose: 345 mGy mGy Contrast Material Contrast Material Type Amount (ml) Isovue 300 150 Procedure Medications Medication Administration Route Dosage Lidocaine 1% added to field 20 Heparin Flush Bag added to field 2 bags (1000units/500ml NS) Heparin Flush Bag added to field 1 bags (1000units/500ml NS) Versed I.V. 1 mg Fentanyl I.V. 50 mcg Heparin Bolus I.V. 5000 units Versed I.V. 0.5 mg Fentanyl I.V. 25 mcg Nitroglycerin IC/IA I.A. 300 mcg Nitroglycerin IC/IA I.A. 300 mcg Versed I.V. 0.5 mg Fentanyl I.V. 25 mcg Nitroglycerin IC/IA I.A. 300 mcg Hemodynamics Rest Heart Rate: 75 (bpm) Snapshots Pre Cath Intra NCS Post Cath Vital Signs Time Heart Resp SPO2 etCO2 NIBP (mmHg) Rhythm Pain Sedation Rate (ipm) (%) (mmHg) Status Level (bpm) 8:31:21 74 16 99 33.9 163/83(120) NSR 0 (11) 9(A) , No pain 8:36:20 76 15 99 28.6 Auto NIBP NSR 0 (11) 9(A) off , No pain 8:38:47 74 15 99 24.1 163/88(139) NSR 0 (11) 9(A) , No pain 8:43:47 75 15 98 29.4 Auto NIBP NSR 0 (11) 9(A) off , No pain 8:47:53 76 12 99 21 Aborted NSR 0 (11) 9(A) , No pain 8:48:17 74 15 99 24.1 Auto NIBP NSR 0 (11) 9(A) off , No pain 8:50:08 79 14 98 27.1 162/83(124) NSR 0 (11) 9(A) , No pain 8:54:32 78 16 99 32.4 163/88(133) NSR 0 (11) 9(A) , No pain 8:58:52 77 12 95 0 142/85(104) NSR 0 (11) 8(A) , No pain 9:03:10 79 12 98 36.2 143/82(116) NSR 0 (11) 8(A) , No pain 9:07:30 74 12 98 0 145/76(115) NSR 0 (11) 7(A) , No pain 9:11:50 73 12 99 35.4 146/82(119) NSR 0 (11) 7(A) , No pain 9:16:13 75 12 99 32.4 148/78(124) NSR 0 (11) 8(A) , No pain 9:20:33 73 13 99 32.4 150/80(122) NSR 0 (11) 8(A) , No pain 9:24:51 73 12 99 0 142/75(113) NSR 0 (11) 9(A) , No pain 9:29:13 74 11 99 20.3 143/71(100) NSR 0 (11) 9(A) , No pain 9:33:25 71 12 97 0 132/73(104) NSR 0 (11) 9(A) , No pain 9:37:41 70 10 97 0 134/74(103) NSR 0 (11) 9(A) , No pain 9:41:53 74 10 98 27 104/63(80) NSR 0 (11) 9(A) , No pain 9:46:50 71 12 98 30.1 132/81(109) NSR 0 (11) 9(A) , No pain 9:51:04 71 13 97 9.7 129/77(96) NSR 0 (11) 9(A) , No pain 9:55:18 72 11 96 29.3 120/72(98) NSR 0 (11) 9(A) , No pain 9:59:30 75 11 96 0 116/73(108) NSR 0 (11) 9(A) , No pain 10:03:42 77 12 93 0 112/67(95) NSR 0 (11) 9(A) , No pain 10:07:49 73 11 97 0 124/77(93) NSR 0 (11) 9(A) , No pain 10:12:05 73 13 96 0 130/67(113) NSR 0 (11) 9(A) , No pain 10:16:23 74 15 96 33.9 131/67(116) NSR 0 (11) 9(A) , No pain Medications Time Medication Route Dose Verified Delivered Reason Notes Effe ctiveness by by 8:22:56 Lidocaine 1% added 20ml Justyn Alejandra for local to vial Feliciano Wiggins MD anesthetic field 8:23:07 Heparin Flush added 2 Justyn Alejandra used for Bag to bags Feliciano Wiggins MD procedure (1000units/500ml field JADE NS) 8:23:08 Heparin Flush added 1 Justyn Alejandra used for Bag to bags Feliciano Wiggins MD procedure (1000units/500ml field JADE NS) 8:54:40 Versed I.V. 1 mg Justyn Ramirez for Burda, MARGIE sedation RN 8:54:56 Fentanyl I.V. 50 Justyn Ramirez for mcg Feliciano, MARGIE sedation RN 9:19:20 Heparin Bolus I.V. 5000 Justyn Ramirez Per units MARGIE Wiggins physician RN 9:23:27 Versed I.V. 0.5 Justyn Ramirez for mg Jyotia, MARGIE sedation RN 9:23:35 Fentanyl I.V. 25 Justyn Toledor for mcg Jyotia, MARGIE sedation RN 9:39:02 Nitroglycerin I.A. 300 Justyn Alejandra IC/IA Feliciano Amaya MD MD 9:51:23 Nitroglycerin I.A. 300 Justyn Alejandra IC/IA mcg Feliciano Wiggins MD MD 9:59:40 Versed I.V. 0.5 Justyn Ramirez for mg Jyotia, MARGIE sedation RN 9:59:50 Fentanyl I.V. 25 Justyn Toledor for mcg Feliciano MARGIE hugo JADE RN 10:00:03 Nitroglycerin I.A. 300 Justyn Alejandra IC/IA Feliciano Amaya MD MD Procedure Log Time Note 8:17:02 Vimal Hernández RT (R) (CV) sent for patient. Start room use. 8:17:08 Time tracking: Regular hours (M-F 7:00 - 5:00) 8:17:13 Plan of Care:Hemodynamics will remain stable., Cardiac rhythm will remain stable., Comfort level will be maintained., Respiratory function will remain adequate., Patient/ family verbilizes understanding of procedure., Procedure tolerated without complication., Recovers from procedure without complications.. 8:17:26 Patient received from Med/Surg to IR Alert and oriented. Tansferred to table in Supine position. 8:17:30 Use device set IR Diagnostic 8:17:32 Bag Decanter (2002S) opened to sterile field. 8:17:32 Sterile Angiographic Pack opened to sterile field. 8:17:33 Tegaderm 4 x 4 (1626W) opened to sterile field. 8:17:42 Signed procedure consent form obtained from patient. 8:17:43 Correct patient and procedure confirmed by team. 8:17:43 ECG and BP/O2 sat monitors applied to patient. 8:17:45 Full Disclosure recording started 8:17:45 - 8:17:46 - 8:17:53 H&P Date Dictated: 05/30/2020 Within 30 days and on chart.. 8:17:54 Pre-procedure instructions explained to patient. 8:17:55 Pre-op teaching completed and patient verbalized understanding. 8:17:56 Family in waiting room. 8:17:59 Patient NPO since Midnight. 8:19:10 Is the patient allergic to Iodine/contrast media? No. 8:19:12 Is patient on blood thinner?Yes 8:19:17 ACC The patient was administered the following blood thiners within the last 24 hours: ACCLovenox 8:19:19 Patient diabetic? Yes. 8:19:20 If diabetic: On Metformin? No 8:19:27 - 8:19:28 ----Pre-sedation anethsthesia assessment.---- 8:19:30 Previous problem with sedation/anesthesia? No ? 8:19:46 Snore? No 8:19:49 Sleep apnea? No 8:19:52 Deviated septum? No 8:19:56 Opens mouth fully? Yes 8:19:57 Sticks out tongue? Yes 8:20:00 Airway obstruction? No ? 8:20:03 Dentures? Yes out 8:20:14 3a) 45-59 Moderately reduced kidney function. 8:20:50 Maximum allowable contrast dose (3.7 X eGFR X 0.75)141.52 ml. 8:22:56 Lidocaine 1% 20ml vial added to field was administered by Justyn Wiggins MD; for local anesthetic; Verbal order read back and verified. 8:23:07 Heparin Flush Bag (1000units/500ml NS) 2 bags added to field was administered by Justyn Wiggins MD; used for procedure; Verbal order read back and verified. 8:23:08 Heparin Flush Bag (1000units/500ml NS) 1 bags added to field was administered by Justyn Wiggins MD; used for procedure; Verbal order read back and verified. 8:30:01 Vital chart was started 8:33:47 Pre procedure: right dorsailis pedis pulse Doppler 8:33:50 Pre procedure: left dorsailis pedis pulse Doppler 8:33:53 Pre procedure: right posterior tibial pulse Doppler 8:33:56 Pre procedure: left posterior tibial pulse Doppler 8:34:15 IV patent on arrival in left forearm with 0.9% NaCl at [facility]. 8:34:22 Alarms reviewed by R. N. 8:34:22 Sharps counted by scrub and verified by R.N. 8:34:27 Baseline sample Acquired. 8:42:15 Baseline sample Acquired. 8:44:10 Right groin area was prepped with chlora-prep and draped in sterile fashion 8:47:51 Vital chart was stopped 8:48:07 Vital chart was started 8:51:25 Physician arrived 8:51:25 --------ALL STOP TIME OUT------ 8:51:26 Final Timeout: patient, procedure, and site verified with staff and physician. All members of the team are in agreement. 8:51:29 Right groin site verified by team. 8:51:33 Fire Safety Assessment: A--An alcohol-based skin anteseptic being used preoperatively., C--Open oxygen or nitrous oxide is being used. 8:51:38 Sedation plan: IV Moderate Sedation Medication:Versed, Fentanyl 8:54:40 Versed 1 mg I.V. was administered by Ashley HANSON RN; for sedation; Verbal order read back and verified. 8:54:56 Fentanyl 50 mcg I.V. was administered by Ashley AHNSON RN; for sedation; Verbal order read back and verified. 8:55:10 Local anesthetic to right femoral artery with Lidocaine 1% by Justyn Wiggins MD.INITIAL ACCESS ONLY 8:55:13 Access obtained with 4Fr micropunture. 8:55:19 ACIST Syringe (16561) opened to sterile field. 8:55:19 ACIST Hand Control (96298) opened to sterile field. 8:55:20 ACIST Manifold (68513) opened to sterile field. 8:55:20 DOC .035 wire (Q38921) opened to sterile field. 8:55:20 SHEATH 5FR Jackson (MDK389) opened to sterile field. 8:55:21 TUBING Contrast Injection High Pressure (AOQ337H) opened to sterile field. 8:55:21 Micropuncture VSI 4FR kit opened to sterile field. 9:15:32 AMPLATZ Super Stiff 75cm wire ([id number]) opened to sterile field. 9:15:50 CHOICE PT Extra Support J 300cm guide wire ([id number]) opened to steril e field. 9:15:51 GLIDE CATHETER 5FR ANGLED 65cm (CG507) opened to sterile field. 9:15:51 Ramirez 180 wire (C42271) opened to sterile field. 9:15:52 SHEATH 6FR Destination (RSR01) opened to sterile field. 9:16:22 INFLATOR BasixTOUCH (SP9406) opened to sterile field. 9:19:20 Heparin Bolus 5000 units I.V. was administered by Ashley HANSON RN; Pe r physician; Verbal order read back and verified. 9:23:27 Versed 0.5 mg I.V. was administered by Ashley HANSON RN; for sedation; Verbal order read back and verified. 9:23:35 Fentanyl 25 mcg I.V. was administered by Ashley HANSON RN; for sedation; Verbal order read back and verified. 9:27:52 CXI Catheter 90cm (Q78302) opened to sterile field. 9:27:53 GLIDE WIRE ANGLE 260cm (FI3870) opened to sterile field. 9:32:37 Inflate balloon Inflation number: 1 A CHOCOLATE 2.5 x 120 x 150 balloon ([id number]) was prepped and advanced across the Undefined1 , then inflated to 9 TIESHA for 2:00 (min:sec) . 9:39:02 Nitroglycerin IC/IA 300 mcg I.A. was administered by Justyn Wiggins MD; ; Verbal order read back and verified. 9:44:39 Inflate balloon Inflation number: 2 A [place] 2.5MM-2 MM X 210 X 150 ([id number]) was prepped and advanced across the Undefined1 , then inflated to 14 TIESHA for 0:08 (min:sec) . 9:47:48 Inflate balloon Inflation number: 3 A CHOCOLATE 3.0 x 120 x 150 balloon ([id number]) was prepped and advanced across the Undefined1 , then inflated to 9 TIESHA for 1:49 (min:sec) . 9:51:23 Nitroglycerin IC/IA 300 mcg I.A. was administered by Justyn Wiggins MD; ; Verbal order read back and verified. 9:56:33 Inflate balloon Inflation number: 4 A [place] 3 X 150 ([id number]) was prepped and advanced across the Undefined1 , then inflated to 14 TIESHA for 0:00 (min:sec) . 9:59:40 Versed 0.5 mg I.V. was administered by Ashley HANSON RN; for sedation; Verbal order read back and verified. 9:59:50 Fentanyl 25 mcg I.V. was administered by Ashley HANSON RN; for sedation; Verbal order read back and verified. 10:00:03 Nitroglycerin IC/IA 300 mcg I.A. was administered by Justyn Wiggins MD; ; Verbal order read back and verified. 10:02:08 Inflate balloon Inflation number: 5 A [place]AN[place]ITE .014 3.5MM-3MM X 210 X 150 ([id number]) was prepped and advanced across the Undefined1 , then inflated to 14 TIESHA for 0:00 (min:sec) . 10:05:02 SHEATH 6FR Jackson (QLI150) opened to sterile field. 10:09:05 EXOSEAL 6Fr (EX600) opened to sterile field. 10:10:01 Procedure ended.(Physican Out) 10:10:39 Fluoroscopy time 10.30 minutes. 10:10:42 Fluoroscopy dose: 345 mGy 10:10:42 Flurop Dose total: 345 10:10:47 Contrast amount:Isovue 300 150ml. 10:10:56 Sharps counted by scrub and verified by R.N. 10:15:05 Insertion/operative site no bleeding no hematoma. 10:15:09 Post-op/insertion site Right Femoral artery dressed using a 4 x 4 and Tegaderm. 10:15:14 Post right femoral artery:stable 10:19:56 Procedure and supply charges have been captured, reviewed, submitted an d are correct. 10:19:58 Post procedure instruction explained to patient.Patient verbalizes understanding. 10:20:13 Report given to Med/Surg. 10:20:18 Patient transfered to Med/Surg with Bed. 10:20:50 Vital chart was stopped Intervention Summary Intervention Notes Time ActionType Lesion and Equipment Used Action# Pressure Duration Attributes 9:32:37 Inflate Undefined1 CHOCOLATE 2.5 x 1 9 02:00 balloon 120 x 150 balloon ([id number]) 9:44:39 Inflate Undefined1 NANOCROSS ELITE 2 14 00:08 balloon 2.5MM-2 MM X 210 X 150 ([id number]) 9:47:48 Inflate Undefined1 CHOCOLATE 3.0 x 3 9 01:49 balloon 120 x 150 balloon ([id number]) 9:56:33 Inflate Undefined1 NANOCROSS ELITE 3 4 14 00:00 balloon X 150 ([id number]) 10:02:08 Inflate Undefined1 NANOCROSS ELITE 5 14 00:00 balloon .014 3.5MM-3MM X 210 X 150 ([id number]) Device Usage Item Name Manufacture Quantity Catalog Number [facility] Minimal Lot# / Charge Number Stock Stock Serial# Code Bag Decanter Microtek 1 068859 48607 614657 5 () Medical Inc. Sterile Cardinal 1 [id number] 969259 885164 5 Angiographic Pack Health Tegaderm 4 x 4 3M 1 1626W 241330 663270 227868 5 (1626W) ACIST Syringe Acist 1 54341 962155 444080 812038 20 (84787) Medical Systems Inc ACIST Hand Acist 1 79709 320849 041044 220157 5 Control (71501) Medical Systems Inc ACIST Manifold Acist 1 19220 229206 090344 524449 5 (37078) Medical Systems Inc DOC .035 wire Cook Medical 1 F78580 756822 508713 5 (B98610) SHEATH 5FR Terumo 1 IAR883 458480 116969 208867 5 Jackson (NRS284) TUBING Contrast Merit 1 SQW799Q 028478 015314 814380 5 Injection High Medical Pressure (HKP456H) Micropuncture VSI VSI VASCULAR 1 7266V 785650 013559 5 4FR kit SOLUTIONS AMPLATZ Super [place] 1 [id number] 347868 108317 165837 5 [id number] Stiff 75cm wire Scientific ([id number]) CHOICE PT Extra [place] 1 [id number] 999281 027190 147239 5 [id number] Support J 300cm Scientific guide wire (4732476A7) GLIDE CATHETER Terumo 1 CG507 304213 223869 5 5FR ANGLED 65cm (CG507) Ramirez 180 wire Cook Medical 1 K98007 430547 304448 498261 0 5 [id number] (G17843) SHEATH 6FR Terumo 1 RSR01 828211 61528 488955 5 Destination (RSR01) INFLATOR Merit 1 CD4666 690751 433314 266791 5 [facility]ound [facility] (GU0030) CXI Catheter 90cm Cook Medical 1 T87990 414446 397571 218503 5 [id number] (P45231) GLIDE WIRE ANGLE Terumo 1 RX4932 388978 339682 619129 5 260cm (RQ7299) CHOCOLATE 2.5 x Medtronic 1 [id number] 121831 217911 149343 5 [id number] 120 x 150 balloon O [id number] ([id number]) TW [id number] NANOCROSS ELITE Medtronic 1 [id number] 943746 859779 1 2.5MM-2 MM X 210 X 150 ([id number]) CHOCOLATE 3.0 x Medtronic 1 [id number] 322004 043235 369808 5 120 x 150 balloon O ([id number]) TW NANOCROSS ELITE 3 Medtronic 1 [id number] 874349 70357 656490 1 X 150 ([id number]) NANOCROSS ELITE Medtronic 1 [id number] 616488 353169 4 1 .014 3.5MM-3.MM X 210 X 150 ([id number] SHEATH 6FR Terumo 1 BTX927 514288 718059 032536 40 Jackson (DIT026) EXOSEAL 6Fr Cardinal 1 EX600 772300 040311 471029 10 [id number] (EX600) Health Signature Audit [place] Stage Time Signature Unsigned Intra-Procedure 05/30/2020 Vimal 10:20:45 AM Betty RT (R) (CV) [id number] [place] [address]
[~2020-05-25 15:02] MED LIST changes: +PLAVIX75 MG PO
[2020-05-25 16:48] LABS: BASOPHILS 0.3 % (0-2); EOSINOPHILS 1.2 % (0-7); HEMATOCRIT 42.6 % (42.0-54.0); HEMOGLOBIN 13.8 g/dL (13.5-17.5); IMMATURE GRANULOCYTES 0.3 % (0-5); LYMPHOCYTES 14.7 % (15-50); MCH 31.2 pg (26.0-34.0); MCHC 32.4 g/dL (31.0-37.0); MCV 96.4 fL (80.0-100.0); MEAN PLATELET VOLUME 11.6 fL (7.4-10.4); MONOCYTES 8.5 % (2-11); PLATELET COUNT 156 10x3/uL (130-400); RBC 4.42 10x6/uL (4.20-6.10); RDW 13.5 % (11.5-14.5); WBC 11.5 10x3/uL (4.8-10.8)
[2020-05-25 16:51] VITALS: BP 142/69
[2020-05-25 16:58] LABS: ANION GAP 11.7 mmol/L (8-16); CALCIUM 9.3 mg/dL (8.5-10.1); CARBON DIOXIDE 27.5 mmol/L (21.0-32.0); CREATININE - SERUM 1.5 mg/dL (0.6-1.3); POTASSIUM - SERUM 4.2 mmol/L (3.5-5.1)
[2020-05-25 17:03] LABS: ALBUMIN 3.9 g/dL (3.4-5.0); BILIRUBIN - TOTAL 0.79 mg/dL (0.2-1.3); PROTEIN - SERUM 7.2 g/dL (6.4-8.2)
[2020-05-25 17:44] VITALS: BP 173/75
[2020-05-25 18:22] VITALS: BP 156/82
--- NOTE | 2020-05-25 19:28 | NUR ---
ANSWERED PT'S CALL LIGHT, PT GIVEN URINAL. PT DENIES ANY FURTHER NEEDS AT THIS TIME. CALL LIGHT WITHIN REACH, FAMILY AT BEDSIDE.
--- NOTE | 2020-05-25 21:15 | NUR ---
RECIEVED TO ROOM FROM ER VIA STRETCHER, ALERT AND ORIENTIATED, HAS DRESSING INTACT TO RIGHT FOOT STATES HAD IAND D DONE AT PRIMARY CARE TODAY, REPORTS PAIN TO FOOT NOT CONSTANT BUT STABBING, INSTRUCTED WILL GET MORPHINE FOR PAIN, SEE ASSESSMENT, CALL LIGHT IN REACH
[2020-05-25] MEDS ORDERED: COZAAR25 MG PO (22:26)
[2020-05-26] VITALS (7 sets, daily range): BP systolic 128–146; BP diastolic 57–74; Ht 180.3 cm; Wt 124.3 kg
[2020-05-26 05:05] LABS: BASOPHILS 0.6 % (0-2); EOSINOPHILS 2.9 % (0-7); HEMATOCRIT 38.8 % (42.0-54.0); HEMOGLOBIN 12.7 g/dL (13.5-17.5); IMMATURE GRANULOCYTES 0.3 % (0-5); LYMPHOCYTES 23.3 % (15-50); MCH 30.8 pg (26.0-34.0); MCHC 32.7 g/dL (31.0-37.0); MEAN PLATELET VOLUME 10.7 fL (7.4-10.4); NEUTROPHILS 64.9 % (40-80); PLATELET COUNT 136 10x3/uL (130-400); RBC 4.12 10x6/uL (4.20-6.10); RDW 13.6 % (11.5-14.5)
[2020-05-26 05:25] LABS: MCV 94.2 fL (80.0-100.0)
[2020-05-26 05:29] LABS: APTT 45.3 SECONDS (22.8-39.4); INR 1.31 (0.85-1.17); PROTIME 16.2 SECONDS (11.6-15.0)
[2020-05-26 05:34] LABS: BILIRUBIN NEGATIVE (NEGATIVE); GLUCOSE 250 mg/dL (NEGATIVE); KETONE NEGATIVE (NEGATIVE); NITRITE NEGATIVE (NEGATIVE); SPECIFIC GRAVITY 1.015 (1.005-1.020); UROBILINOGEN NORMAL (NORMAL)
[2020-05-26 05:55] LABS: ANION GAP 11.4 mmol/L (8-16); CALCIUM 8.9 mg/dL (8.5-10.1); CARBON DIOXIDE 27.2 mmol/L (21.0-32.0); CREATININE - SERUM 1.2 mg/dL (0.6-1.3); MAGNESIUM - SERUM 1.5 mg/dL (1.8-2.4); POTASSIUM - SERUM 3.6 mmol/L (3.5-5.1)
--- NOTE | 2020-05-26 09:15 | NUR ---
AM MEDS. ASSESSMENT PER FLOW SHEET. DRESSING HAS BEEN REPLACED ON RIGHT FOOT BEFORE I COULD SEE WOUND. PATIENT STATES WILL BE HERE AROUND 1200 TODAY TO REMOVE HIS DRESSING AND LOOK AT FOOT. HE STATES HE HAS HAD WOUND FOR AWHILE. HE ALSO STATES THEY TRIED TO CLEAN WOUND IN OFFICE YESTERDAY. MONITOR FOR NEEDS.WILL MEASURE WOUND WHEN DRESSING IS REMOVED AT 1200.
--- NOTE | 2020-05-26 12:24 | NUR ---
FAMILY REMAINS AT BEDSIDE.CALL LIGHT IN REACH.
--- NOTE | 2020-05-26 14:21 | NUR ---
DRESSING CHANGE TO RIGHT FOOT,ASEPTIC TECH USED.INNER ASPECT OF FOOT RED AND SWOLLEN. OPEN AREA APROX 1 3/4 IN LONG X 3/4 INCH WIDE.AREA SURROUNDING WOUND IS A RED [place] SHAPED AREA APROX 2 1/2 INCH X 3 INCHES. REDNESS TRAVELS UP TO MID [place] AREA. DRAINAGE IS STRAW COLORED, WITHOUT ODOR.
--- NOTE | 2020-05-26 18:46 | NUR ---
STILL IN MRI. HAS BEEN WITHOUT DISTRESS TODAY. CONT PLAN OF CARE
--- NOTE | 2020-05-26 20:00 | NUR ---
ALERT SITTING ON SIDE OF BED SON AT BEDSIDE, DENIES PAIN OR NEEDS AT THIS TIME, SEE SHIFT ASSESSMENT, CALL LIGHT IN REACH
[2020-05-27] VITALS: BP 136/65
[2020-05-27 04:00] VITALS: BP 153/71
[2020-05-27 05:36] LABS: BASOPHILS 0.6 % (0-2); EOSINOPHILS 3.6 % (0-7); HEMATOCRIT 38.5 % (42.0-54.0); HEMOGLOBIN 12.5 g/dL (13.5-17.5); IMMATURE GRANULOCYTES 0.1 % (0-5); LYMPHOCYTES 24.3 % (15-50); MCH 30.6 pg (26.0-34.0); MCHC 32.5 g/dL (31.0-37.0); MCV 94.1 fL (80.0-100.0); MEAN PLATELET VOLUME 10.9 fL (7.4-10.4); MONOCYTES 7.7 % (2-11); NEUTROPHILS 63.7 % (40-80); PLATELET COUNT 133 10x3/uL (130-400); RBC 4.09 10x6/uL (4.20-6.10); RDW 13.5 % (11.5-14.5); WBC 6.9 10x3/uL (4.8-10.8)
[2020-05-27 05:58] LABS: ALBUMIN 3.2 g/dL (3.4-5.0); ANION GAP 11.5 mmol/L (8-16); BILIRUBIN - TOTAL 0.59 mg/dL (0.2-1.3); CARBON DIOXIDE 26.5 mmol/L (21.0-32.0); CREATININE - SERUM 1.2 mg/dL (0.6-1.3); MAGNESIUM - SERUM 1.6 mg/dL (1.8-2.4); PROTEIN - SERUM 6.3 g/dL (6.4-8.2)
[2020-05-27 06:01] LABS: VANCOMYCIN - TROUGH 11.7 ug/mL (10.0-20.0)
--- NOTE | 2020-05-27 08:30 | NUR ---
ASSESSMENT PER FLOW SHEET. PATIENT IS WITHOUT DISTRESS.DENIES NEEDS.CALL LIGHT IN REACH.
[2020-05-27 08:49] VITALS: BP 120/68
[2020-05-27 12:47] VITALS: BP 142/74
--- NOTE | 2020-05-27 12:48 | NUR ---
FAMILY AT BEDSIDE. PATIENT IS WITHOOUT NEEDS.CALL LIGHT IN REACH
[2020-05-27 16:00] VITALS: BP 125/53
--- NOTE | 2020-05-27 18:20 | NUR ---
IV LEFT WRIST RED AND TENDER. IV DCD WITH CATH TIP INTACT. PATIENT WANTS TO FINISH DINNER BEFORE RESITE.
--- NOTE | 2020-05-27 18:53 | NUR ---
IV SITED TO RIGHT UPPER ARM X2 STICKS USING ASEPTIC TECH, 20G.
--- NOTE | 2020-05-27 19:57 | NUR ---
IV INFILTRATED TO LUE AND RESITED TO LUE WITH 20G X [address] HERE TO TAKE FOR TESTING. STABLE AT TIME OF DEPARTURE.
[2020-05-27 20:00] VITALS: BP 164/77
--- NOTE | 2020-05-27 21:00 | NUR ---
PATIENT RESTING IN BED, JUST CAME BACK FROM CT. NO S/S OF ACUTE DISTRESS. NO C/O AT THIS TIME. PATIENT IV INFLITRATED IN CT. WILL TRY TO PLACE ANOTHER IV. PATIENT HAS A WOUND ON RIGHT FOOT THAT IS OPEN. THE WOUND IS ABOUT A QUARTER SIZE. DRESSING WAS CHANGED. PATIENT'S RIGHT FOOT AND UP TO HIS CALF IS RED AND SWOLLEN. PATIENT USES URINAL AND IS UP WITH ASSIST TO THE BATHROOM. CALL LIGHT WITHIN REACH. WILL CONTINUE TO MONITOR.
--- NOTE | 2020-05-27 22:30 | NUR ---
I COULD NOT FIND A VEIN THAT I FELT COMFORTABLE STICKING. CALLED ER AND MAGALI SAID THAT SHE WOULD TRY IN A BIT. CALL LIGHT WITHIN REACH. WILL CONTINUE TO MONITOR.
[2020-05-28] VITALS: BP 147/61
--- NOTE | 2020-05-28 03:43 | NUR ---
I have reviewed this patient and I concur with the Shift Assessment completed by the Licensed Practical Nurse today this shift.
[2020-05-28 04:00] VITALS: BP 160/73
--- NOTE | 2020-05-28 05:40 | NUR ---
CALLED ER TO SEE IF THEY WOULD TRY TO START AN IV AGAIN. ER SAID THEY WOULD SEND SOMEONE. CALL LIGHT WITHIN REACH. WILL CONTINUE TO MONITOR.
--- NOTE | 2020-05-28 06:20 | NUR ---
PATIENT HAS NEW IV IN RIGHT WRIST. STARTED BY ER NURSE. CALL LIGHT WITHIN REACH. WILL CONTINUE TO MONITOR.
--- NOTE | 2020-05-28 06:30 | NUR ---
PATIENT GOT A SPONGE BATH THIS MORNING. HE REFUSED A SHOWER. HE REFUSED A SHAVE. CALL LIGHT WITHIN REACH. WILL CONTINUE TO MONITOR.
[2020-05-28 06:37] LABS: BASOPHILS 0.6 % (0-2); EOSINOPHILS 3.2 % (0-7); HEMATOCRIT 41.7 % (42.0-54.0); HEMOGLOBIN 13.8 g/dL (13.5-17.5); IMMATURE GRANULOCYTES 0.2 % (0-5); LYMPHOCYTES 22.8 % (15-50); MCH 30.8 pg (26.0-34.0); MCHC 33.1 g/dL (31.0-37.0); MCV 93.1 fL (80.0-100.0); MONOCYTES 7.8 % (2-11); NEUTROPHILS 65.4 % (40-80); RBC 4.48 10x6/uL (4.20-6.10); RDW 13.3 % (11.5-14.5); WBC 8.1 10x3/uL (4.8-10.8)
[2020-05-28 06:40] LABS: PLATELET COUNT 163 10x3/uL (130-400)
[2020-05-28 06:52] LABS: ALBUMIN 3.7 g/dL (3.4-5.0); ANION GAP 12.1 mmol/L (8-16); BILIRUBIN - TOTAL 0.73 mg/dL (0.2-1.3); CALCIUM 9.5 mg/dL (8.5-10.1); CARBON DIOXIDE 26.3 mmol/L (21.0-32.0); CREATININE - SERUM 1.4 mg/dL (0.6-1.3); MAGNESIUM - SERUM 1.6 mg/dL (1.8-2.4); POTASSIUM - SERUM 4.4 mmol/L (3.5-5.1); PROTEIN - SERUM 7.2 g/dL (6.4-8.2)
[2020-05-28 09:18] VITALS: BP 110/80
[2020-05-28 13:21] VITALS: BP 140/65
[2020-05-28 16:35] VITALS: BP 132/58
--- NOTE | 2020-05-28 17:25 | NUR ---
PATIENT LAWN CARE SPECIALIST LIGHT. BRAKES ON PATIENT BED DO NOT WORK. WORK ORDER PLACED. PATIENT DENIES ANY OTHER NEEDS. WILL CONTINUE TO MONITOR.
--- NOTE | 2020-05-28 19:00 | NUR ---
BEDSIDE REPORT RECEIVED AND CARE OF PT ASSUMED. PT LYING IN HIGH CHILDERS'S POSITION WATCHING TV. WITH DAY NURSE AND ACID BLOWER...CHANGED OUT PT'S BED BRAKE NOT WORKING ON CURRENT BED. POSITIONED FOR COMFORT...PT THEN WANTED MATTRESS CHANGED OUT " IT IS HARD AND HITTING THE FRAME". CHANGED OUT MATTRESS AND POSITIONED FOR COMFORT.
[2020-05-28 20:00] VITALS: BP 127/49
--- NOTE | 2020-05-28 20:40 | NUR ---
HS MEDICATIONS GIVEN. FSBS 318 REQUIRING COVERAGE WITH 8 UNITS OF INSULIN PER SLIDING SCALE.
--- NOTE | 2020-05-28 22:00 | NUR ---
DRESSING CHANGED BY DARION ROUSSEAU LPN. OLD DRESSING WITH SOME DRAINAGE. CLEANSED WITH WOUND STORE CONSULTANT. COVERED WITH NON ADHERANT DRESSING AND WRAPPED WITH KERLEX.
[2020-05-29 04:00] VITALS: BP 154/62
[2020-05-29 07:03] LABS: ALBUMIN 3.2 g/dL (3.4-5.0); ANION GAP 9.6 mmol/L (8-16); BILIRUBIN - TOTAL 0.62 mg/dL (0.2-1.3); CALCIUM 8.9 mg/dL (8.5-10.1); CARBON DIOXIDE 28.5 mmol/L (21.0-32.0); CREATININE - SERUM 1.3 mg/dL (0.6-1.3); MAGNESIUM - SERUM 1.6 mg/dL (1.8-2.4); POTASSIUM - SERUM 4.1 mmol/L (3.5-5.1); PROTEIN - SERUM 6.4 g/dL (6.4-8.2); VANCOMYCIN - RANDOM 30.1 ug/mL (10.0-20.0)
[2020-05-29 07:21] LABS: BASOPHILS 0.6 % (0-2); EOSINOPHILS 5.3 % (0-7); HEMATOCRIT 37.8 % (42.0-54.0); HEMOGLOBIN 12.5 g/dL (13.5-17.5); IMMATURE GRANULOCYTES 0.3 % (0-5); MCH 30.9 pg (26.0-34.0); MCHC 33.1 g/dL (31.0-37.0); MCV 93.6 fL (80.0-100.0); MEAN PLATELET VOLUME 11.1 fL (7.4-10.4); MONOCYTES 6.9 % (2-11); NEUTROPHILS 55.9 % (40-80); PLATELET COUNT 145 10x3/uL (130-400); RBC 4.04 10x6/uL (4.20-6.10); RDW 13.3 % (11.5-14.5); WBC 6.2 10x3/uL (4.8-10.8)
[2020-05-29 09:38] VITALS: BP 138/58
--- NOTE | 2020-05-29 09:53 | NUR ---
PT ALERT X 4. BREATH SOUNDS CLEAR BILAT. IV TO RIGHT WRIST, PATENT, DRESSING CDI. DRESSING TO RIGHT FOOT CDI. PT REPORTIMG NO PAIN AT THIS TIME. BE LOW, CALL LIGHT IN REACH. NO OTHER NEEDS AT THIS TIME.
[2020-05-29 12:59] VITALS: BP 148/64
[2020-05-29 15:50] VITALS: BP 141/58
--- NOTE | 2020-05-29 19:00 | NUR ---
BEDSIDE REPORT RECEIVED AND CARE OF PT ASSUMED. PT LYING IN SUPINE POSITION WITH EYES CLOSED AND EASY RESPIRATIONS. IV TO RIGHT WRIST PATENT WITH NS INFUSING AT 75 ML/HR. DRESSING ON RIGHT FOOT INTACT. WILL MONITOR FOR NEEDS.
[2020-05-29 20:00] VITALS: BP 174/56
--- NOTE | 2020-05-29 20:56 | NUR ---
HS MEDICATIONS GIVEN. FSBS 366 THIS CHECK REQUIRING COVERAGE WITH 10 UNITS OF INSULIN PER SLIDING SCALE. PT DECLINES HS SNACK AT THIS TIME. WILL CONTINUE TO MONITOR FOR NEEDS.
[2020-05-30] VITALS (12 sets, daily range): BP systolic 115–147; BP diastolic 52–75
[2020-05-30 05:20] LABS: BASOPHILS 0.8 % (0-2); EOSINOPHILS 5.4 % (0-7); HEMOGLOBIN 12.3 g/dL (13.5-17.5); IMMATURE GRANULOCYTES 0.2 % (0-5); LYMPHOCYTES 27.9 % (15-50); MCH 31.1 pg (26.0-34.0); MCHC 33.2 g/dL (31.0-37.0); MCV 93.4 fL (80.0-100.0); MEAN PLATELET VOLUME 10.6 fL (7.4-10.4); MONOCYTES 6.5 % (2-11); NEUTROPHILS 59.2 % (40-80); PLATELET COUNT 145 10x3/uL (130-400); RBC 3.96 10x6/uL (4.20-6.10); RDW 13.2 % (11.5-14.5); WBC 6.3 10x3/uL (4.8-10.8)
[2020-05-30 05:43] LABS: ALBUMIN 3.2 g/dL (3.4-5.0); ANION GAP 11.2 mmol/L (8-16); BILIRUBIN - TOTAL 0.45 mg/dL (0.2-1.3); CALCIUM 8.9 mg/dL (8.5-10.1); CARBON DIOXIDE 28.2 mmol/L (21.0-32.0); CREATININE - SERUM 1.4 mg/dL (0.6-1.3); MAGNESIUM - SERUM 1.6 mg/dL (1.8-2.4); POTASSIUM - SERUM 4.4 mmol/L (3.5-5.1); PROTEIN - SERUM 6.3 g/dL (6.4-8.2)
--- NOTE | 2020-05-30 06:03 | NUR ---
MAG LEVEL 1.6 WITH AM LABS REQUIRING COVERAGE...GIVING 1 GM IVPB Q1HR X2 PER ELECTROLYTE PROTOCOL PT IS NPO FOR AM PROCEDURE.
--- NOTE | 2020-05-30 06:06 | NUR ---
HIBACLENS BATH PERFORMED. ALL LINENS AND GOWN CHANGED.
--- NOTE | 2020-05-30 06:48 | NUR ---
CHANGED DRESSING ON RIGHT FOOT. QUARTER SIZE WOUND ON BOTTOM / INNER FOOT. CLEANSED WITH NS. COVERED WITH ADAPTIC GAUZE, THEN NON ADHERENT GAUZE, THEN WRAPPED WITH KERLEX.
[2020-05-30 07:23] LABS: APTT 53.8 SECONDS (22.8-39.4); INR 1.19 (0.85-1.17)
--- NOTE | 2020-05-30 07:43 | NUR ---
20 G IV TO THE LEFT UPPER ARM, CLIPPED BILATERAL GROINS AREAS. HE IS ALERT TALKING. THE CALL LIGHT IS WITHIN REACH.
--- NOTE | 2020-05-30 08:15 | NUR ---
GONE TO IR.
--- NOTE | 2020-05-30 10:43 | NUR ---
DRESSING TO THE RIGHT GROIN IS CLEAN AND INTACT. THE HOB OF THE BED IS FLAT. THE CALL LIGHT IS WITHIN REACH AND HIS DAUGHT IS AT THE BEDSIDE.
--- NOTE | 2020-05-30 11:00 | NUR ---
HIS GROIN DRESSING IS CLEAN DRY AND INTACT. HE IS TALKING. THE CALL LIGHT IS WITHIN REACH. AT 1115,1130, AND 1200 THE RIGHT GROIN DRESSING IS CLEAN AND DRY AND INTACT.
--- NOTE | 2020-05-30 12:30 | NUR ---
THE DRESSING IS CLEAN AND DRY AND INTACT. AT 1245,1300,1315.1330, 1400 THE RIGHT GROIN DRESSING IS CLEAN, DRY, AND INTACT. THE CALL LIGHT IS WITH REACH AND HIS DAUGHTER IS AT THE BEDSIDE.
--- NOTE | 2020-05-30 13:29 | NUR ---
Nutrition follow-up: Diet: consistent CHO PO Intake 100% of most meals Labs reviewed; Glucose readings > 300 most of the time Wt: 273# +BM Pt will be NPO for procedure 05/31 RDN follwoing.
--- NOTE | 2020-05-30 15:34 | NUR ---
THE DRESSING TO THE RIGHT GROIN IS CLEAN, DRY, INTACT, NO HEMATOMA. THE CALL LIGHT IS WITHIN REACH.
--- NOTE | 2020-05-30 18:42 | NUR ---
STILL NO HEMATOMA OR BLEEDING TO THE RIGHT GROIN. THE DRESSING IS CLEAN, DRY AND INTACT.
--- NOTE | 2020-05-30 19:00 | NUR ---
BEDSIDE REPORT RECEIVED AND CARE OF PT ASSUMED. PT LYING IN SUPINE POSITION WATCHING TV. IV TO RIGHT WRIST PATENT WITH NS INFUSING AT 75 ML/HR. DRESSING ON RIGHT GROIN CLEAN AND DRY WITH NO SIGNS OF HEMMORRHAGE.
--- NOTE | 2020-05-30 20:11 | NUR ---
HS MEDICATIONS GIVEN. DRESSING ON RIGHT GROIN CLEAN AND DRY...NO SIGNS OF HEMMORRHAGE OR HEMATOMA.
--- NOTE | 2020-05-30 23:10 | NUR ---
IV TO RIGHT WRIST SWOLLEN AND LEAKING. REMOVED BY RICH HART WITH CATHETER TIP INTACT. FLUIDS MOVED TO IV IN LEFT UPPER ARM.
[2020-05-31 04:00] VITALS: BP 147/67
[2020-05-31 04:20] LABS: BASOPHILS 0.4 % (0-2); EOSINOPHILS 3.8 % (0-7); HEMATOCRIT 37.8 % (42.0-54.0); HEMOGLOBIN 12.4 g/dL (13.5-17.5); IMMATURE GRANULOCYTES 0.1 % (0-5); LYMPHOCYTES 21.8 % (15-50); MCH 30.7 pg (26.0-34.0); MCHC 32.8 g/dL (31.0-37.0); MCV 93.6 fL (80.0-100.0); MEAN PLATELET VOLUME 11.1 fL (7.4-10.4); MONOCYTES 6.7 % (2-11); NEUTROPHILS 67.2 % (40-80); PLATELET COUNT 156 10x3/uL (130-400); RBC 4.04 10x6/uL (4.20-6.10); RDW 13.3 % (11.5-14.5); WBC 6.9 10x3/uL (4.8-10.8)
[2020-05-31 04:34] LABS: ALBUMIN 3.3 g/dL (3.4-5.0); ANION GAP 10.4 mmol/L (8-16); BILIRUBIN - TOTAL 0.5 mg/dL (0.2-1.3); CALCIUM 8.9 mg/dL (8.5-10.1); CARBON DIOXIDE 29.1 mmol/L (21.0-32.0); CREATININE - SERUM 1.3 mg/dL (0.6-1.3); MAGNESIUM - SERUM 1.7 mg/dL (1.8-2.4); POTASSIUM - SERUM 4.5 mmol/L (3.5-5.1); PROTEIN - SERUM 6.4 g/dL (6.4-8.2)
--- NOTE | 2020-05-31 06:19 | NUR ---
PROVIDED PT SUPPLIES TO DO SPONGE BATH.
--- NOTE | 2020-05-31 07:51 | NUR ---
PT IS RESTING IN BED WITH EYES OPEN. RESPIRATIONS ARE EVEN AND UNLABORED. PT IS AAO X 4. PT DENIES PRESENCE OF PAIN/N/V AT THIS TIME. DRESSING NOTED TO RIGHT FOOT AND IS CDI. SKIN TEAR NOTED TO LEFT #2 TOE WITHOUT ACTIVE BLEEDING AT THIS TIME. PT REFUSES BANDAID AND STATES "ITS FINE". PT REPORTS TINGLING TO BLE AND REPORTS THAT HE DOES HAVE A HX OF NEUROPATHY. 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 SHIFT ASSESSMENT COMPLETED. BED IS IN THE LOWEST POSITION. CALL LIGHT AND BEDSIDE TABLE ARE WITHIN REACH. SIDE RAILS X 2. PT DENIES FURTHER NEEDS. WILL CONT TO MONITOR.
[2020-05-31 09:34] VITALS: BP 152/76
--- NOTE | 2020-05-31 09:57 | NUR ---
Rehab Note- Acute Inpatient Rehab prescreen order received. The patient has been hesitant to participate in therapy. He would have to be willing to participate in the required 3hrs/day of therapy for inpatient acute rehab stay. Will follow at this time. Thank you for this referral! Helen Davis RN Clinical Liaison, [facility]
--- NOTE | 2020-05-31 11:50 | MORECARE ---
CASE MANAGEMENT DISCHARGE SUMMARY PATIENT: ANITA VALADEZ UNIT: [id number] ADM DATE: 05/25/20 AGE: 84 : 33 SEX: M ROOM/BED: D.2217 AUTHOR: FLORADOC PHYSICIAN: REFERRING PHYSICIAN: ADDI CISNEROS MD DATE OF SERVICE: 05/31/20 Discharge Plan Patient Name: ANITA VALADEZ Facility: [facility]:[place] : 1935 Planned Disposition: Inpatient Rehab Anticipated Discharge Date: Discharge Date: Expected LOS: Initial Reviewer: [id number] Initial Review Date: 05/25/2020 Generated: 05/31/20 12:50 pm DCPIA - Discharge Planning Initial Assessment Updated by [email or web address]: Joanna Harris on 05/31/20 11:49 am * Is the patient Alert and Oriented? Yes * How many steps to enter\exit or inside your home? * PCP FARO * [facility] * Preadmission Environment Home Alone * ADLs Independent * Equipment Glucometer Rolling Walker * List name and contact numbers for known caregivers / representatives who currently or will assist patient after discharge: ENEDINA (DAUGHTER) [phone] * Verbal permission to speak to the caregivers and representatives has been obtained from the patient. N/A * Community resources currently utilized None * Additional services required to return to the preadmission environment? Yes * Can the patient safely return to the preadmission environment? Yes * Has this patient been hospitalized within the prior 30 days at any hospital? No External Providers External Provider: [facility] Next Contact Date: Service Request Date: Service Type: Resolution: Reviewer: Comments: Coverage Notice Reviewer: [id number] Briana Harris Notice Issued Date-Time: 05/31/2020 10:35 Notice Type: IM Discharge Notice Notice Delivered To: Patient Relationship to Patient: Daughter Drainage Inspector Name: enedina (daughter) Delivery Method: HAND - Hand Delivered Ayesha Days: Prior Verbal Notification: Recipient Understood Notice: Yes Recipient Signature: Yes Med Rec Note Co-signed by Attending: Coverage Notice Comment: imm served and explained to Enedina and patient Reviewer: [id number] Briana Harris Notice Issued Date-Time: 05/31/2020 10:35 Notice Type: Patient Choice Letter Notice Delivered To: Patient Relationship to Patient: Daughter Drainage Inspector Name: enedina Delivery Method: HAND - Hand Delivered Ayesha Days: Prior Verbal Notification: Recipient Understood Notice: Yes Recipient Signature: Yes Med Rec Note Co-signed by Attending: Coverage Notice Comment: [facility] Patient Name: ANITA VALADEZ Page [id number] at 1150 All edits/amendments must be made on the electronic document DICTATION DATE: 05/31/20 1150 ON AWAKE COUNSELOR: LUZMA 05/31/20 1150 RPT#: [id number] DC DATE: STATUS: ADM IN [facility] [address] [place] [address] END OF REPORT
--- NOTE | 2020-05-31 11:58 | MORECARE ---
CASE MANAGEMENT DISCHARGE SUMMARY PATIENT: ANITA VALADEZ UNIT: [id number] ADM DATE: 05/25/20 AGE: 84 : 33 SEX: M ROOM/BED: D.2217 AUTHOR: FLORA,DOC PHYSICIAN: REFERRING PHYSICIAN: ADDI CISNEROS MD DATE OF SERVICE: 05/31/20 Discharge Plan Patient Name: ANITA VALADEZ Facility: [facility]:[place] : 1935 Planned Disposition: Inpatient Rehab Anticipated Discharge Date: Discharge Date: Expected LOS: Initial Reviewer: [id number] Initial Review Date: 05/25/2020 Generated: 05/31/20 12:57 pm Comments DCP- Discharge Planning Updated by [id number]: Joanna Harris on 05/31/20 10:[address] Patient Name: ANITA VALADEZ Admission Status: ER Accout number: [id number] Admission Date: 05-25-2020 : 1935 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 CM educated patient on the CM role and verbal consent given by patient to complete assessment. Patient lives at home where he is independent with his care. He lives at [facility]. CM discussed availability of home health, rehab services, and medical equipment. He would like to go to [facility] Inpatient rehab. ORIANA obtained and placed in chart. A referral was sent to Sarah at [facility]. IMM also given and went over with him and his daughter. The patient has a walker and a glucometer at home Patient denied known discharge needs at this time. CM will continue to follow and will assist as needed with dc plans/needs. Principal Systems Engineer: Joanna Harris DCPIA - Discharge Planning Initial Assessment Updated by [email or web address]: Joanna Harris on 05/31/20 11:49 am * Is the patient Alert and Oriented? Yes * How many steps to enter\exit or inside your home? * PCP FARO * [facility] * Preadmission Environment Home Alone * ADLs Independent * Equipment Glucometer Rolling Walker * List name and contact numbers for known caregivers / representatives who currently or will assist patient after discharge: ENEDINA (DAUGHTER) [phone] * Verbal permission to speak to the caregivers and representatives has been obtained from the patient. N/A * Community resources currently utilized None * Additional services required to return to the preadmission environment? Yes * Can the patient safely return to the preadmission environment? Yes * Has this patient been hospitalized within the prior 30 days at any hospital? No Coverage Notice Reviewer: [id number] Harris Notice Issued Date-Time: 05/31/2020 10:35 Notice Type: IM Discharge Notice Notice Delivered To: Patient Relationship to Patient: Daughter Welder Tack Name: enedina (daughter) Delivery Method: HAND - Hand Delivered Ayesha Days: Prior Verbal Notification: Recipient Understood Notice: Yes Recipient Signature: Yes Med Rec Note Co-signed by Attending: Coverage Notice Comment: imm served and explained to Enedina and patient Reviewer: [id number] Harris Notice Issued Date-Time: 05/31/2020 10:35 Notice Type: Patient Choice Letter Notice Delivered To: Patient Relationship to Patient: Daughter Welder Tack Name: enedina Delivery Method: HAND - Hand Delivered Ayesha Days: Prior Verbal Notification: Recipient Understood Notice: Yes Recipient Signature: Yes Med Rec Note Co-signed by Attending: Coverage Notice Comment: [facility] [employer] Last DP export: 05/31/20 10:50 a Patient Name: ANITA VALADEZ Page [phone] at 1158 All edits/amendments must be made on the electronic document DICTATION DATE: 05/31/20 1157 HOSPITALIST: LUZMA 05/31/20 1157 RPT#: [id number] DC DATE: STATUS: ADM IN [facility] [address] [place] [address] END OF REPORT
--- NOTE | 2020-05-31 12:04 | NUR ---
DRESSING TO RIGHT FOOT CHANGED. PT TOLERATED WELL. BED IS IN THE LOWEST POSITION. CALL LIGHT AND BEDSIDE TABLE ARE WITHIN REACH. PT DAUGHTER IS AT BEDSIDE. PT DENIES FURTHER NEEDS. WILL CONT TO MONITOR.
[2020-05-31 13:13] VITALS: BP 158/63
[2020-05-31] MEDS ORDERED: VANCOMYCIN 1 GM/1 G1 IV (14:21)
--- NOTE | 2020-05-31 14:50 | NUR ---
OT NOTE: MET WITH PT IN PM REGARDING IP REHAB. PT REPORTS THAT HIS SON IS BRINGING HIM AND KNEE SCOOTER HE IS NOT ALLOWED TO BEAR WT ON R LE. PT ABLE TO PERFORM BED MOB WITH MIN ASSIST AND TRANSFER WITH WALKER AND MIN ASSIST, HOWEVER, UNABLE TO AMBULATE WITH WALKER DUE TO WEAKNESS AND DECREASED BALANCE. PT IS A HIGH FALL RISK. REQUIRES MIN/MOD ASSIST WITH ADLS. RECOMMEND IP REHAB TO ALLOW PT TO IMPROVE WITH ALL ADLS AND MOBILTY PRIOR TO DC HOME GUANAKO UP, OTR/L [phone]
--- NOTE | 2020-05-31 15:55 | NUR ---
OT NOTE: PT COMPLETED SIDE ROLLING WITH SBA. PT COMPLETED SUPINE TO SIT WITH SBA. PT COMPLETED EOB SITTING WITH SBA. PT COMPLETED BUE AROM EXS AT EOB WITH SBA. [phone] THANK YOU,TRAN PULIDO
--- NOTE | 2020-05-31 16:30 | NUR ---
REPORT CALLED TO [facility] STAFF. ALL QUESTIONS ANSWERED. NOT FURTHER QUESTIONS/CONCERNS.
--- NOTE | 2020-05-31 16:50 | MORECARE ---
CASE MANAGEMENT DISCHARGE SUMMARY PATIENT: ANITA VALADEZ UNIT: [id number] ADM DATE: 05/25/20 AGE: 84 : 33 SEX: M ROOM/BED: D.2217 AUTHOR: KATRINA HINES PHYSICIAN: REFERRING PHYSICIAN: ADDI CISNEROS MD DATE OF SERVICE: 05/31/20 Discharge Plan Patient Name: ANITA VALADEZ Facility: [facility]:[place] : 1935 Planned Disposition: Inpatient Rehab Anticipated Discharge Date: Discharge Date: Expected LOS: Initial Reviewer: [email or web address] Initial Review Date: 05/25/2020 Generated: 05/31/20 5:50 pm Comments DCP- Discharge Planning Updated by [id number]: Joanna Harris on 05/31/20 3:[address] patient will be picked up by [facility] today at 1700 to room 103 DCP- Discharge Planning Updated by [email or web address]: Joanna Harris on 05/31/20 10:[address] Patient Name: ANITA AVLADEZ Admission Status: ER Accout number: [id number] Admission Date: 05-25-2020 : 1935 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 CM educated patient on the CM role and verbal consent given by patient to complete assessment. Patient lives at home where he is independent with his care. He lives at [facility]. CM discussed availability of home health, rehab services, and medical equipment. He would like to go to [facility] Inpatient rehab. ORIANA obtained and placed in chart. A referral was sent to Sarah at [facility]. IMM also given and went over with him and his daughter. The patient has a walker and a glucometer at home Patient denied known discharge needs at this time. CM will continue to follow and will assist as needed with dc plans/needs. Consulting Psychologist: Joanna Harris DCPIA - Discharge Planning Initial Assessment Updated by [email or web address]: Joanna Harris on 05/31/20 11:49 am * Is the patient Alert and Oriented? Yes * How many steps to enter\exit or inside your home? * PCP FARO * [facility] * Preadmission Environment Home Alone * ADLs Independent * Equipment Glucometer Rolling Walker * List name and contact numbers for known caregivers / representatives who currently or will assist patient after discharge: ENEDINA (DAUGHTER) [phone] * Verbal permission to speak to the caregivers and representatives has been obtained from the patient. N/A * Community resources currently utilized None * Additional services required to return to the preadmission environment? Yes * Can the patient safely return to the preadmission environment? Yes * Has this patient been hospitalized within the prior 30 days at any hospital? No Coverage Notice Reviewer: [email or web address] Briana Harris Notice Issued Date-Time: 05/31/2020 10:35 Notice Type: IM Discharge Notice Notice Delivered To: Patient Relationship to Patient: Daughter Revenue Director Name: enedina (daughter) Delivery Method: HAND - Hand Delivered Ayesha Days: Prior Verbal Notification: Recipient Understood Notice: Yes Recipient Signature: Yes Med Rec Note Co-signed by Attending: Coverage Notice Comment: imm served and explained to Enedina and patient Reviewer: [id number] Harris Notice Issued Date-Time: 05/31/2020 10:35 Notice Type: Patient Choice Letter Notice Delivered To: Patient Relationship to Patient: Daughter Revenue Director Name: enedina Delivery Method: HAND - Hand Delivered Ayesha Days: Prior Verbal Notification: Recipient Understood Notice: Yes Recipient Signature: Yes Med Rec Note Co-signed by Attending: Coverage Notice Comment: [facility] Last DP export: 05/31/20 10:58 a Patient Name: ANITA VALADEZ Page [phone] at 1650 All edits/amendments must be made on the electronic document DICTATION DATE: 05/31/20 165 REGULATORY AFFAIRS MANAGER: LUZMA 05/31/20 1650 RPT#: [id number] DC DATE: STATUS: ADM IN [facility] [address] [place] [address] END OF REPORT
--- NOTE | 2020-05-31 17:00 | NUR ---
[facility] STAFF ARRIVES TO HOSPITAL TO TRANSPORT PT FROM [facility] TO REHAB. ALL DISCHARGE INSTRUCTIONS COVERED WITH PT AND PT DAUGHTER. NOT QUESTIONS/CONCERNS. PIV REMOVED FROM LEFT UPPER ARM WITH CATHETER TIP INTACT. DRESSING APPLIED. ALL DISCHARGE PAPERS SIGNED BY PT DAUGHTER PER PT REQUEST. SIGNED DC PAPERS PLACED IN PT CHART. PT TRANSPORTED FROM ROOM VIA WHEELCHAIR ESCORTED BY [facility] REHAB STAFF. PT STATES THAT HE HAS ALL PERSONAL BELONGINGS AND DENIES FURTHER QUESTONS/CONCERNS. PT THANKS THIS NURSE FOR CARE GIVEN DURING THIS SHIFT.
--- NOTE | 2020-06-01 13:02 | MORECARE ---
CASE MANAGEMENT DISCHARGE SUMMARY PATIENT: ANITA VALADEZ UNIT: [id number] ADM DATE: 05/25/20 AGE: 84 : 33 SEX: M ROOM/BED: D.2217 AUTHOR: KATRINA HINES PHYSICIAN: REFERRING PHYSICIAN: ADDI CISNEROS MD DATE OF SERVICE: 06/01/20 Discharge Plan Patient Name: ANITA VALADEZ Facility: [facility]:[place] : 1935 Planned Disposition: Inpatient Rehab Anticipated Discharge Date: Discharge Date: 05/31/2020 Expected LOS: 0 Initial Reviewer: [email or web address] Initial Review Date: 05/25/2020 Generated: 06/01/20 2:02 pm Comments DCP- Discharge Planning Updated by [email or web address]: Joanna Harris on 05/31/20 3:[address] patient will be picked up by [facility] today at 1700 to room 103 DCP- Discharge Planning Updated by [id number]: Joanna Harris on 05/31/20 10:[address] Patient Name: ANITA VALADEZ Admission Status: ER Accout number: [id number] Admission Date: 05-25-2020 : 1935 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 CM educated patient on the CM role and verbal consent given by patient to complete assessment. Patient lives at home where he is independent with his care. He lives at [facility]. CM discussed availability of home health, rehab services, and medical equipment. He would like to go to [facility] Inpatient rehab. ORIANA obtained and placed in chart. A referral was sent to Sarah at [facility]. IMM also given and went over with him and his daughter. The patient has a walker and a glucometer at home Patient denied known discharge needs at this time. CM will continue to follow and will assist as needed with dc plans/needs. Splitter Head: Joanna Harris DCPIA - Discharge Planning Initial Assessment Updated by [email or web address]: Joanna Harris on 05/31/20 11:49 am * Is the patient Alert and Oriented? Yes * How many steps to enter\exit or inside your home? * PCP FARO * [facility] * Preadmission Environment Home Alone * ADLs Independent * Equipment Glucometer Rolling Walker * List name and contact numbers for known caregivers / representatives who currently or will assist patient after discharge: ENEDINA (DAUGHTER) [phone] * Verbal permission to speak to the caregivers and representatives has been obtained from the patient. N/A * Community resources currently utilized None * Additional services required to return to the preadmission environment? Yes * Can the patient safely return to the preadmission environment? Yes * Has this patient been hospitalized within the prior 30 days at any hospital? No Coverage Notice Reviewer: [id number] Briana Harris Notice Issued Date-Time: 05/31/2020 10:35 Notice Type: IM Discharge Notice Notice Delivered To: Patient Relationship to Patient: Daughter Event Marketing Intern Name: enedina (daughter) Delivery Method: HAND - Hand Delivered Ayesha Days: Prior Verbal Notification: Recipient Understood Notice: Yes Recipient Signature: Yes Med Rec Note Co-signed by Attending: Coverage Notice Comment: imm served and explained to Enedina and patient Reviewer: [id number] Harris Notice Issued Date-Time: 05/31/2020 10:35 Notice Type: Patient Choice Letter Notice Delivered To: Patient Relationship to Patient: Daughter Event Marketing Intern Name: enedina Delivery Method: HAND - Hand Delivered Ayesha Days: Prior Verbal Notification: Recipient Understood Notice: Yes Recipient Signature: Yes Med Rec Note Co-signed by Attending: Coverage Notice Comment: [facility] for [employer] Last DP export: 05/31/20 3:50 p Patient Name: ANITA VALADEZ Page [phone] at 1302 All edits/amendments must be made on the electronic document DICTATION DATE: 06/01/20 1302 CUSTOMER RELATIONS COORDINATOR: LUZMA 06/01/20 1302 RPT#: [id number] DC DATE:05/31/20 STATUS: DIS IN [facility] [address] [place] [address] END OF REPORT
== END 2020-05-31 17:45 | DRG 982 ==
LOC: D.ER 15:02 → D.MS 18:48
PROVIDERS: Family Medicine; General Practice; ADMIT Emergency Medicine; ATTEND Emergency Medicine
PROC: 047R3ZZ Dilation of Right Posterior Tibial Artery, Percutaneous Approach (ICD-10-PCS; 2020-05-30)
PROC: 047P3ZZ Dilation of Right Anterior Tibial Artery, Percutaneous Approach (ICD-10-PCS; principal; 2020-05-30 08:17)
DX: E11.69 Type 2 diabetes mellitus with other specified complication (principal); I25.110 Atherosclerotic heart disease of native coronary artery with unstable angina pectoris; M86.171 Other acute osteomyelitis, right ankle and foot; N17.9 Acute kidney failure, unspecified; E11.65 Type 2 diabetes mellitus with hyperglycemia; I10 Essential (primary) hypertension; E78.5 Hyperlipidemia, unspecified; D64.9 Anemia, unspecified; E83.42 Hypomagnesemia

== ENCOUNTER → 2020-06-13 14:15 | Outpatient (CLI) | payer MEDICARE, BC ==
[2020-05-26 13:37] VITALS: BMI 38.2
[~2020-06-13 14:15] MED LIST changes: +COZAAR25 MG PO; +VANCOMYCIN 1 GM/1 G1 IV
[2020-06-13 15:50] LABS: BASOPHILS 0.5 % (0-2); EOSINOPHILS 2.6 % (0-7); HEMATOCRIT 38.1 % (42.0-54.0); HEMOGLOBIN 12.4 g/dL (13.5-17.5); IMMATURE GRANULOCYTES 0.2 % (0-5); MCHC 32.5 g/dL (31.0-37.0); MCV 95.3 fL (80.0-100.0); MEAN PLATELET VOLUME 11.9 fL (7.4-10.4); MONOCYTES 6.7 % (2-11); PLATELET COUNT 186 10x3/uL (130-400); RDW 13.6 % (11.5-14.5); WBC 8.4 10x3/uL (4.8-10.8)
[2020-06-13 16:12] LABS: CREATININE - SERUM 1.4 mg/dL (0.6-1.3); VANCOMYCIN - TROUGH 11.6 ug/mL (10.0-20.0)
== END | disposition home or self-care (01) ==
LOC: D.LABREF 14:15
PROVIDERS: ATTEND Family Medicine
DX: M86.8X7 Other osteomyelitis, ankle and foot (principal)

== ENCOUNTER → 2020-06-20 11:53 | Outpatient (CLI) | payer MEDICARE, BC ==
[2020-05-26 13:37] VITALS: BMI 38.2
[2020-06-20 17:26] LABS: BASOPHILS 0.6 % (0-2); EOSINOPHILS 4.5 % (0-7); HEMATOCRIT 38.8 % (42.0-54.0); HEMOGLOBIN 12.6 g/dL (13.5-17.5); IMMATURE GRANULOCYTES 0.1 % (0-5); LYMPHOCYTES 20.7 % (15-50); MCH 31.2 pg (26.0-34.0); MCHC 32.5 g/dL (31.0-37.0); MEAN PLATELET VOLUME 11.7 fL (7.4-10.4); MONOCYTES 9.2 % (2-11); NEUTROPHILS 64.9 % (40-80); RBC 4.04 10x6/uL (4.20-6.10); RDW 14.3 % (11.5-14.5); WBC 6.8 10x3/uL (4.8-10.8)
[2020-06-20 17:28] LABS: PLATELET COUNT 139 10x3/uL (130-400)
[2020-06-20 17:48] LABS: CREATININE - SERUM 1.4 mg/dL (0.6-1.3); VANCOMYCIN - TROUGH 12.1 ug/mL (10.0-20.0)
== END | disposition home or self-care (01) ==
LOC: D.LABREF 11:53
PROVIDERS: ATTEND Family Medicine
DX: M86.8X7 Other osteomyelitis, ankle and foot (principal)

== ENCOUNTER → 2020-06-28 18:44 | Outpatient (CLI) | payer MEDICARE, BC ==
[2020-05-26 13:37] VITALS: BMI 38.2
[2020-06-28 19:14] LABS: BASOPHILS 0.7 % (0-2); EOSINOPHILS 4.3 % (0-7); HEMATOCRIT 40.7 % (42.0-54.0); HEMOGLOBIN 13.2 g/dL (13.5-17.5); IMMATURE GRANULOCYTES 0.3 % (0-5); LYMPHOCYTES 22.1 % (15-50); MCH 30.9 pg (26.0-34.0); MCHC 32.4 g/dL (31.0-37.0); MCV 95.3 fL (80.0-100.0); MEAN PLATELET VOLUME 12.2 fL (7.4-10.4); MONOCYTES 8.8 % (2-11); NEUTROPHILS 63.8 % (40-80); PLATELET COUNT 161 10x3/uL (130-400); RBC 4.27 10x6/uL (4.20-6.10)
[2020-06-28 19:28] LABS: CREATININE - SERUM 1.4 mg/dL (0.6-1.3); VANCOMYCIN - TROUGH 21.8 ug/mL (10.0-20.0)
== END | disposition home or self-care (01) ==
LOC: D.LABREF 18:44
PROVIDERS: ATTEND Family Medicine
DX: M86.171 Other acute osteomyelitis, right ankle and foot (principal)

== ENCOUNTER → 2020-07-04 18:35 | Outpatient (CLI) | payer MEDICARE, BC ==
[2020-05-26 13:37] VITALS: BMI 38.2
[2020-07-04 19:26] LABS: BASOPHILS 0.4 % (0-2); EOSINOPHILS 3.6 % (0-7); HEMATOCRIT 38.5 % (42.0-54.0); HEMOGLOBIN 12.6 g/dL (13.5-17.5); IMMATURE GRANULOCYTES 0.1 % (0-5); LYMPHOCYTES 23.6 % (15-50); MCH 30.9 pg (26.0-34.0); MCHC 32.7 g/dL (31.0-37.0); MCV 94.4 fL (80.0-100.0); MEAN PLATELET VOLUME 11.6 fL (7.4-10.4); NEUTROPHILS 63.3 % (40-80); PLATELET COUNT 154 10x3/uL (130-400); RBC 4.08 10x6/uL (4.20-6.10); RDW 13.8 % (11.5-14.5); WBC 6.7 10x3/uL (4.8-10.8)
[2020-07-04 19:51] LABS: CREATININE - SERUM 1.5 mg/dL (0.6-1.3); VANCOMYCIN - RANDOM 21.5 ug/mL (10.0-20.0)
== END | disposition home or self-care (01) ==
LOC: D.LABREF 18:35
PROVIDERS: ATTEND Family Medicine
DX: M86.171 Other acute osteomyelitis, right ankle and foot (principal)

== ENCOUNTER → 2020-07-05 09:37 | Outpatient (CLI) | payer MEDICARE, BC ==
[2020-05-26 13:37] VITALS: BMI 38.2
== END | disposition home or self-care (01) ==
LOC: D.NM 09:37
PROVIDERS: ATTEND Internal Medicine Pulmonary Disease
DX: Z86.711 Personal history of pulmonary embolism (principal)

== ENCOUNTER → 2020-07-22 09:51 | Outpatient (CLI) | payer MEDICARE, BC ==
[2020-05-26 13:37] VITALS: BMI 38.2
== END | disposition home or self-care (01) ==
LOC: D.NM 09:51
PROVIDERS: ATTEND Orthopaedic Surgery
DX: Z96.651 Presence of right artificial knee joint (principal)

== ENCOUNTER → 2020-08-16 09:28 | Outpatient (CLI) | payer MEDICARE, BC ==
[2020-05-26 13:37] VITALS: BMI 38.2
--- NOTE | 2020-08-17 10:43 | EC ---
PATIENT:ANITA VALADEZ DATE OF SERVICE: 08/16/20 SEX: M MEDICAL RECORD: [id number] DATE OF : [birth year] [facility] AGE OF PATIENT: 84 ADMISSION DATE: 08/16/20 REFERRING PHYSICIAN: INTERPRETING PHYSICIAN: KJ SALAZAR MD ECHOCARDIOGRAM REPORT ECHO CHARGES 4 ECHO COMPLETE Date: 08/16/20 CLINICAL DIAGNOSIS: HX OF CAD/AORTIC VALVE REPLACE MENT ECHOCARDIOGRAPHIC MEASUREMENTS (adult normal given) AC root (d.<3.7cm) 3.2 cm LV Septum d (<1.2 cm> 2.0 cm Valve Excursion 1.4 cm LV Septum (systole) 2.1 cm Left Atria (s.<4.0cm> 3.4 cm LVPW d(<1.2cm) 2.0 cm RV (d.<2.3cm) 4.3 cm LVPW (sytole) 2.2 cm LV diastole(<5.6CM) 3.3 cm MV E-F(>70mm/sec) cm LV systole 1.8 cm LVOT Diameter 2.0 cm MV exc.(>10mm) 1.1 cm Est.ejection fraction (50-75%) % DOPPLER: LVIT cm/sec A 152.0cm/sec E 113.0 cm/sec LA cm/sec RVSP 25 mmHg LVOT 165 cm/sec AOP1/2T m/s Asc. Ao 226 cm/sec RVOT 107 cm/sec RA cm/sec PA 152 cm/sec AV Gradient Peak 20.50mmHg AV Mean 11.22mmHg AV Area 2.4 cm MV Gradient Peak 11.05mmHg MV Mean 4.48 mmHg MV Area cm COMMENTS: Salvage Worker: 2 RUBEN TRIANA Computerized Mill Recorder: 3 Dr. Beyer TAPE# PACS Pericardial Effusion N DATE OF SERVICE: Adequate 2D, color-flow imaging, spectral Doppler, and M-Mode LVH is present. LV internal dimensions are normal. Wall motion is normal. EF is greater than or equal to 55%. Prosthetic tissue aortic valve is noted with mildly elevated velocity at 20 mmHg putting this in mild range. Left atrium is normal at 3.4 cm. Mitral valve shows no prolapse. Trace MR. Right-sided chambers are grossly normal. Trace TR. ECHOCARDIOGRAM REPORT [id number] ANITA VALADEZ TRANSINT:[id number] Voice Confirmation ID: [id number] DOCUMENT ID: [id number] KJ SALAZAR MD at 1043 CC: [id number] DICTATION DATE: 08/16/20 1242 COP BREAKER: 08/16/20 1430 DEP CLI 08/16/20 [place] [id number] [place] [id number]
== END | disposition home or self-care (01) ==
LOC: D.HCCECHO 09:28
PROVIDERS: ATTEND Internal Medicine Interventional Cardiology
DX: I25.10 Atherosclerotic heart disease of native coronary artery without angina pectoris (principal)

== ENCOUNTER 2021-01-25 12:24 | Inpatient (IN) | payer MEDICARE, BC ==
[~2021-01-25] VITALS: Ht 185.4 cm; Wt 126.1 kg
--- NOTE | ~2021-01-25 | OP ---
PATIENT NAME: ANITA VALADEZ MEDICAL RECORD: [id number] :[birth year] LOCATION:D.M2 D.3 ADMISSION DATE:01/26/21 SURGEON: KJ SALAZAR MD DATE OF OPERATION: 01/26/2021 PROCEDURE: Left heart catheterization, selective coronary angiography, right femoral artery approach. CATHETERS: Include a long sheath for the intervention, a JL4 guide catheter. Ronal left and right diagnostic catheters. The procedure was well tolerated. The patient returned to the burnette. Sheath removed. ExoSeal device was placed. FINDINGS: Left ventriculography not performed. CORONARY ANATOMY: Left main: Left main is free of disease. LAD: Has in-stent proximal portion, in-stent restenosis of about 90%. CIRCUMFLEX: Free of disease. Right coronary artery: Free of disease. IMPRESSION: In-stent restenosis. PLAN: Intervention momentarily. DESCRIPTION OF PROCEDURE: Using a long sheath and a JL4 guiding catheter, a 300 cm BMW wire was placed across the tight stenosis. Balloon used was a 3.5 x 15 mm Euphora balloon up to 12 atmospheres for 45 seconds. Final angiography showed excellent resolution of 90% stenosis. No significant residual. ALISA flow was 3 throughout the procedure. Heparin and Integrilin were used during the case. Sheath closed with ExoSeal device. Plavix was loaded in the lab. TRANSINT:[id number] Voice Confirmation ID: [id number] DOCUMENT ID: [id number] KJ SALAZAR MD CC: [id number] DICTATION DATE: 01/30/21 0807 RESOURCE TEACHER: 01/30/21 1429 DIS IN 01/27/21 [place] [id number] [place] [id number]
--- NOTE | ~2021-01-25 | HEMODYNAMI ---
PATIENT:ANITA VALADEZ MEDICAL RECORD: [id number] : 31 [id number] ADMISSION DATE: 01/26/21 Generatedon:114:19 Patient name: ANITA VALADEZ Patient #: [id number] : 1935 Date of study: 01/26/2021 Page: Of Hemodynamic Procedure Report Patient Data Patient Demographics Procedure consent was obtained First Name: ANITA Gender: Male Last Name: RORY : 1935 Middle Initial: A Age: 85 year(s) Patient #: [id number] Race: SSN: [id number] Additional ID: [id number] Contact details Address: [address] [place] [address] [address] State: [place] City: [facility] Zip code: [address] Past Medical History History of disease Date Diagnosis Comments CAD Allergies Allergen Reaction Date Comments Reported Penicillins 01/19/2020 Penicillins 01/26/2021 Admission Admission Data Admission Date: 01/26/2021 Admission Time: 12:05 Arrival Date: 01/26/2021 Arrival Time: 0:00 Room #: [facility] Height (in.): 72.83 BSA: 2.47 (m2) Height (cm.): 185 BMI: 36.82 (kg/m2) Weight (lbs.): 277.78 Weight (kg.): 126 Lab Results Lab Result Date: 01/26/2021 Lab Result Time: 0:00 Biochemistry Name Units Result Min Max BUN mg/dl 43 --(----)-* 7 18 Creatinine mg/dl 1.5 --(----)-* 0.6 1.3 eGFR ml/min 47 *-(----)-- 90 120 NONAFRICAN CBC Name Units Result Min Max Hematocrit % 39.4 -*(----)-- 42 54 Hemoglobin g/dl 13 -*(----)-- 13.5 17.5 Procedure Procedure Types Cath Procedure Diagnostic Procedure LHC Coronaries only Sedation Charges Moderate Sedation 25-39 minutes PCI Procedure Hemochron ACT Test PTCA PTCA Initial Procedure Description Procedure Date Procedure Date: 01/26/2021 Procedure Start Time: 13:39 Procedure End Time: 14:17 Procedure Staff Name Function Gomez Neff MD Performing Physician Latha Khan RT Monitor Mary Gonzalez RT Scrub Modesto Norman RN Nurse Procedure Data Cath Procedure Fluoroscopy Diagnostic fluoroscopy Total fluoroscopy Time: 8.9 time: 8.9 min min Diagnostic fluoroscopy Total fluoroscopy dose: dose: 1666 mGy 1666 mGy Contrast Material Contrast Material Type Amount (ml) Isovue 300 102 Entry Location Entry Primary Successful Side Size Upsize Upsize Entry Closure Succes sful Closure Location (Fr) 1 (Fr) 2 (Fr) Remarks Device Remarks Femoral Right 5 Fr 6 Fr 6 Fr Exoseal artery Short Long Estimated blood loss: 10 ml Diagnostic catheters Device Type Used For End Catheter Placement DIAGNOSTIC AL2 5Fr Procedure catheter ([id number]) DIAGNOSTIC JL 5 5Fr Procedure catheter ([id number]) DIAGNOSTIC 3DRC 5Fr Procedure catheter ([id number]) Procedure Complications No complications Procedure Medications Medication Administration Route Dosage Oxygen etCO2 Nasal cannula 2 l/min Lidocaine 2% added to field 20 Heparin Flush Bag added to field 2 bags (1000units/500ml NS) 0.9% NaCl I.V. 100 ml/hr Versed I.V. 1 mg Fentanyl I.V. 25 mcg Heparin Bolus I.V. 5000 units Integrilin (Bolus I.V. 11.3 ml 2mg/ml) Plavix P.O. 600 mg Hemodynamics Rest BSA: 2.47 (m2) HGB: 13 (g/dl) O2 Consumption: Estimated: 280.89 (ml/min) O2 Cons umption indexed: Estimated:113.72 (ml/min/m) Heart Rate: 71 (bpm) Snapshots Pre Cath Intra NCS Post Cath Vital Signs Time Heart Resp SPO2 etCO2 NIBP (mmHg) Rhythm Pain Sedation Rate (ipm) (%) (mmHg) Status Level (bpm) 13:25:36 61 16 94 17 127/69(106) NSR 0 (11) 10(A) , No pain 13:30:01 69 11 94 1.4 120/70(93) NSR 0 (11) 10(A) , No pain 13:34:20 66 13 91 1.4 106/61(82) NSR 0 (11) 10(A) , No pain 13:38:38 69 13 91 32.6 106/67(84) NSR 0 (11) 10(A) , No pain 13:42:57 73 13 93 17 112/66(89) NSR 0 (11) 9(A) , No pain 13:47:15 75 13 92 32.6 114/71(96) NSR 0 (11) 9(A) , No pain 13:51:35 74 12 93 34.1 117/66(98) NSR 0 (11) 9(A) , No pain 13:55:57 75 13 93 34.1 106/65(90) NSR 0 (11) 9(A) , No pain 14:00:15 76 14 93 34.1 112/67(91) NSR 0 (11) 9(A) , No pain 14:04:35 77 13 94 33.4 120/70(95) NSR 0 (11) 9(A) , No pain 14:08:55 78 13 94 31.9 119/76(90) NSR 0 (11) 10(A) , No pain 14:13:13 81 37 95 34.1 118/106(113) NSR 0 (11) 10(A) , No pain Medications Time Medication Route Dose Verified Delivered Reason Notes Effectiveness by by 13:24:29 Oxygen etCO2 2 Gomez Salvador used for Nasal l/min St Justyn Norman RN procedure cannula 13:24:36 Lidocaine 2% added 20ml [facility] Dyer [facility] JADE 13:24:41 Heparin Flush added 2 Gomez Gomez used for Bag to [facility] (1000units/500ml field MD JADE NS) 13:24:50 0.9% NaCl I.V. 100 Gomez Salvador Per physician ml/hr St Justyn Norman RN, MD 13:37:16 Versed I.V. 1 mg Gomez Salvador for sedation St Justyn Norman RN, MD 13:37:22 Fentanyl I.V. 25 Gomez Salvador for sedation mcg St Justyn Norman RN, MD 13:51:06 Heparin Bolus I.V. 5000 Gomez bean verif ied units St Justyn Norman RN anticoagulation with dr MD malin 13:55:05 Integrilin I.V. 11.3 Gomez bean Waste d (Bolus 2mg/ml) ml St Justyn Norman RN antiplatelet 8.7 ml therapy of vial 14:10:14 Plavix P.O. 600 Gomez Salvador for mg St Justyn Norman RN antiplatelet therapy Procedure Log Time Note 12:58:39 Informed consent obtained and on chart 13:00:50 Procedure Status Urgent Heart Cath (IP). 13:00:52 Time tracking: Regular hours (M-F 7:00 - 5:00) 13:00:56 Plan of Care:Hemodynamics will remain stable., Cardiac rhythm will remain stable., Comfort level will be maintained., Respiratory function will remain adequate., Patient/ family verbilizes understanding of procedure., Procedure tolerated without complication., Recovers from procedure without complications.. 13:04:26 Modesto Norman RN sent for patient. Start room use. 13:20:06 Patient received from Med II to CCL 1 Alert and oriented. Tansferred to table in Supine position. 13:20:07 Warm blankets applied, and alea hugger turned on for patient comfort. 13:20:07 Correct patient and procedure confirmed by team. 13:20:07 ECG and BP/O2 sat monitors applied to patient. 13:24:17 Vital chart was started 13:24:29 Oxygen 2 l/min etCO2 Nasal cannula was administered by Modesto Norman RN; used for procedure; Verbal order read back and verified. 13:24:35 Baseline sample Acquired. 13:24:36 Lidocaine 2% 20ml vial added to field was administered by Gomez Neff MD; used for procedure; Verbal order read back and verified. 13:24:38 Rhythm: sinus rhythm 13:24:39 Full Disclosure recording started 13:24:39 Pre-procedure instructions explained to patient. 13:24:40 Pre-op teaching completed and patient verbalized understanding. 13:24:41 Heparin Flush Bag (1000units/500ml NS) 2 bags added to field was administered by Gomez Neff MD; used for procedure; Verbal order read back and verified. 13:24:43 H&P Date Dictated: 01/25/2021 ER History on chart.. 13:24:45 Family in patients room. 13:24:46 Patient NPO since Midnight. 13:24:50 0.9% NaCl 100 ml/hr I.V. was administered by Modesto Norman RN; Per physician; Verbal order read back and verified. 13:24:51 Patient allergic to Penicillins 13:24:53 Is the patient allergic to Iodine/contrast media? No. 13:24:54 Is patient on blood thinner?Yes 13:24:56 ACC The patient was administered the following blood thiners within the last 24 hours: Eliquis 13:24:58 Patient diabetic? No. 13:25:01 Previous problem with sedation/anesthesia? No ? 13:25:02 Snore? Yes 13:25:03 Sleep apnea? No 13:25:04 Deviated septum? No 13:25:05 Opens mouth fully? Yes 13:25:05 Sticks out tongue? Yes 13:25:09 Airway obstruction? Yes PNEUMONIA 13:25:12 Dentures? No ? 13:25:14 Pre procedure: right dorsailis pedis pulse 1+ Palpable, but thready & weak; easily obliterated 13:26:03 Patient pain scale 0/10 ?. 13:29:34 Lab Result : BUN 43 mg/dl 13:29:34 Lab Result : Creatinine 1.5 mg/dl 13:29:34 Lab Result : eGFR NONAFRICAN 47 ml/min 13:29:34 Lab Result : Hemoglobin 13 g/dl 13:29:34 Lab Result : Hematocrit 39.4 % 13:29:37 Lab results completed and on chart. 13:29:40 Right groin area was prepped with chlora-prep and draped in sterile fashion 13:29:41 Alarms reviewed by R. N. 13:29:41 Sharps counted by scrub and verified by R.N. 13:29:45 Use device set CATH PACK 13:29:46 ACIST Syringe (37869) opened to sterile field. 13:29:47 ACIST Hand Control (39802) opened to sterile field. 13:29:47 ACIST Manifold (99580) opened to sterile field. 13:29:47 Medline Cath Pack ([id number]) opened to sterile field. 13:29:48 Bag Decanter (2001S) opened to sterile field. 13:29:48 EMERALD Guide Wire (336-782) opened to sterile field. 13:29:53 SHEATH 5FR Zenia (EMD596) opened to sterile field. 13:33:14 Patient Weight : 277.78 lbs 13:33:24 Patient Height : 72.83 inches 13:33:28 Arrival Date: 01/26/2021 12:00:00 AM 13:34:34 --------ALL STOP TIME OUT------ 13:34:34 Final Timeout: patient, procedure, and site verified with staff and physician. All members of the team are in agreement. 13:34:35 Right groin site verified by team. 13:34:40 Fire Safety Assessment: A--An alcohol-based skin anteseptic being used preoperatively., C--Open oxygen or nitrous oxide is being used., D--An ESU, laser, or fiber-optic light is being used. 13:34:42 Physical assessment completed. ASA score P 3 - A patient with severe systemic disease as per Gomez Neff MD. 13:34:44 3a) 45-59 Moderately reduced kidney function. 13:34:45 Maximum allowable contrast dose (3.7 X eGFR X 0.75)? ml. 13:34:48 Sedation plan: IV Moderate Sedation Medication:Versed, Fentanyl 13:37:16 Versed 1 mg I.V. was administered by Modesto Norman RN; for sedation; Verbal order read back and verified. 13:37:22 Fentanyl 25 mcg I.V. was administered by Modesto Norman RN; for sedation; Verbal order read back and verified. 13:38:50 Zero performed for pressure channel P1 13:38:56 Procedure started. 13:39:11 Local anesthetic to right femoral artery with Lidocaine 2% by Gomez Neff MD.INITIAL ACCESS ONLY 13:40:28 A 5 Fr sheath was inserted into the Right Femoral artery 13:40:36 A DIAGNOSTIC AL2 5Fr catheter ([id number]) was advanced over the wire and used for Procedure. 13:43:13 Catheter removed. 13:43:40 A DIAGNOSTIC JL 5 5Fr catheter ([id number]) was advanced over the wire and used for Procedure. 13:46:03 LCA angiography performed. 13:46:05 Catheter removed. 13:46:11 A DIAGNOSTIC 3DRC 5Fr catheter ([id number]) was advanced over the wire and used for Procedure. 13:47:17 RCA angiography performed. 13:49:03 Catheter removed. 13:49:41 Proceeding to intervention. 13:50:15 SHEATH 6FR Zenia (TGC153) opened to sterile field. 13:50:23 INFLATOR Merit BasixCompak (EA3533) opened to sterile field. 13:50:23 Asahi Minamo 300cm wire opened to sterile field. 13:50:30 INFLATOR Merit BasixCompak (WS7427) opened to sterile field. 13:50:38 Sheath upsized to a 6 Fr Short. 13:50:46 Pre PCI Site: [place] LAD has 80% stenosis. 13:51:03 GUIDE 6FR JL 5.0 catheter ([id number]) opened to sterile field. 13:51:06 Heparin Bolus 5000 units I.V. was administered by Modesto Norman RN; for anticoagulation; verified with dr malin Verbal order read back and verified. 13:51:53 SHEATH 6FR Destination (RSR01) opened to sterile field. 13:52:18 Sheath upsized to a 6 Fr Long. 13:54:41 6 Fr JL 5 guide catheter was inserted over the wire 13:55:05 Integrilin (Bolus 2mg/ml) 11.3 ml I.V. was administered by Modesto Norman RN; for antiplatelet therapy; Wasted 8.7 ml of vial Verbal order read back and verified. 13:55:51 Guide Catheter removed. unable to cannulate vessel. 13:56:01 GUIDE 6FR AL 2.0 catheter (ZV1FD66) opened to sterile field. 13:56:30 6 Fr AL 2 guide catheter was inserted over the wire 13:58:17 Guide Catheter removed. unable to cannulate vessel. 13:58:37 GUIDE 6FR JL 4.0 catheter (PU1MO70) opened to sterile field. 13:58:54 6 Fr JL 4 guide catheter was inserted over the wire 14:01:22 MINAMO 300 wire advanced. 14:01:26 Wire advanced across lesion. 14:04:29 Inflate balloon Inflation number: 1 A EUPHORA 3.5 x 15 Balloon ([id number]) was prepped and advanced across the Prox LAD , then inflated to 12 TIESHA for 0:00 (min:sec) . 14:04:49 Balloon removed over the wire. 14:04:50 Wire removed. 14:04:50 Guide catheter removed. 14:05:02 EXOSEAL 6Fr (EX600) opened to sterile field. 14:05:27 LONG SHEATH EXCHANGED FOR A SHORT SHEATH 14:06:04 Procedure type changed to Cath procedure, Diagnostic procedure, LHC, Coronaries only, Sedation Charges, Moderate Sedation 25-39 minutes, PCI procedure, Hemochron ACT Test, PTCA, PTCA Initial 14:07:09 Sheath removed intact; hemostasis achieved with Exoseal to the Right Femoral artery. 14:07:14 Procedure ended.(Physican Out) 14:08:56 Fluoroscopy time 08.90 minutes. 14:09:00 Fluoroscopy dose: 1666 mGy 14:09:00 Flurop Dose total: 1666 14:09:10 Dose Area Product 15199 mGy/cm. 14:09:14 Contrast amount:Isovue 300 102ml. 14:09:16 Maximum allowable dose exceeded? No. 14:09:18 Sharps counted by scrub and verified by R.N. 14:09:22 Post-op/insertion site Right Femoral artery dressed using a 4 x 4 and Tegaderm. 14:09:38 Post-procedure physical assessment completed. ASA score P 2 - A patient with mild systemic disease as per Gomez Neff MD. 14:09:41 Post procedure rhythm: sinus rhythm 14:09:44 Estimated blood loss: 10 ml 14:09:46 Post procedure instruction explained to patient.Patient verbalizes understanding. 14:09:46 Patient needs reinforcement of post procedure teaching. 14:10:14 Plavix 600 mg P.O. was administered by Modesto Norman RN; for antiplatelet therapy; Verbal order read back and verified. 14:10:48 ACT drawn and resulted at 329 seconds. (normal therapeutic range 180-240 seconds). 14:15:01 Procedure and supply charges have been captured, reviewed, submitted and are correct. 14:15:09 Procedure Complication : No complications 14:15:11 Vital chart was stopped 14:15:14 [facility] Findings: MVD- PCI performed (see procedure note) 14:15:16 Operative report dictated upon procedure completion. 14:15:16 See physician's report for complete and final results. 14:16:21 FEMSTOP Gold ([id number]) opened to sterile field. 14:16:34 Femstop placed over the right femoral artery at 145 mmHg. Hemostasis achieved. 14:17:20 Report given to [facility] II. 14:17:23 Patient transfered to [facility] II with Bed. 14:17:26 Procedure ended. 14:17:26 Full Disclosure recording stopped 14:17:32 ACC-PCI Only Patient was given prescriptions, or instructed by Gomez Neff MD to start/continue the following medications upon discharge: Plavix 14:17:57 End room use (Document Last) 14:19:14 Procedure ended.(Physican Out) Intervention Summary Intervention Notes Time ActionType Lesion and Equipment Action# Pressure Duration Attributes Used 14:04:29 Inflate Prox LAD EUPHORA 1 12 00:00 balloon 3.5 x 15 Balloon ([id number]) Device Usage Item Name Manufacture Quantity Catalog Hospital Part Current Minimal Lot# / Number Charge Number Stock Stock Serial# Code ACIST Acist 1 59587 378896 179664 805147 20 Syringe Medical (98074) Systems Inc ACIST Hand Acist 1 16336 552544 505286 450050 5 Control Medical (70998) Systems Inc ACIST Acist 1 35120 062770 434310 806870 5 Manifold Medical (05772) Systems Inc Medline Medline 1 [id number] 037447 14481 127506 5 Cath Pack ([id number]) Bag Microtek 1 2001S 000659 98310 150569 5 Decanter Medical Inc. (2001S) EMERALD Cardinal 1 502-455 040130 242542 083235 5 Guide Wire Health (502-455) SHEATH 5FR Terumo 1 YVA304 428247 422439 344049 5 Zenia (XFT336) DIAGNOSTIC Cardinal 1 922884I 319008 220016 870340 15 AL2 5Fr Health catheter (376934U) DIAGNOSTIC Cardinal 1 [id number] 017891 404753 004526 5 JL 5 5Fr Health catheter (689858N) DIAGNOSTIC Cardinal 1 [id number] 241749 268178 834929 9 3DRC 5Fr Health catheter (597148O) SHEATH 6FR Terumo 1 MOQ720 918149 310159 627114 40 Zenia (VLE302) INFLATOR [facility] 2 BI2345 048570 495235 509907 [address] [facility] BasixCompak (CU8458) Yee Fraire Inte 1 [id number] 655194 8444921 967367 0 Minamo 300cm wire GUIDE 6FR Medtronic 1 GE1CN60 186422 01891 867249 1 JL 5.0 catheter (WJ6CV05) SHEATH 6FR Terumo 1 RSR01 456966 00996 430653 5 Destination (RSR01) GUIDE 6FR Medtronic 1 TC0YN37 579573 01846 310404 1 AL 2.0 catheter (KS2MS41) GUIDE 6FR Medtronic 1 OM5HT01 034021 95582 277440 1 JL 4.0 catheter (WG1HV55) EUPHORA 3.5 Medtronic 1 [id number] 903954 563039 224220 5 [id number] x 15 Balloon ([id number]) EXOSEAL 6Fr Cardinal 1 EX600 010124 915848 507066 10 (EX600) Health FEMSTOP [facility] 1 E72550 641842 216198 912132 5 Gold (T78186) Signature Audit [place]agar Stage Time Signature Unsigned Intra-Procedure 01/26/2021 Latha Khan 2:18:46 PM RT(R) Intra-Procedure 01/26/2021 Modesto Norman RN 2:19:14 PM Intra-Procedure 01/26/2021 Gomez Garcia 2:19:49 PM Justyn JADE [facility] [address] [place] [address]
[2021-01-25 13:35] LABS: BASOPHILS 0 % (0-2); EOSINOPHILS 0 % (0-7); HEMATOCRIT 39.5 % (42.0-54.0); HEMOGLOBIN 13.4 g/dL (13.5-17.5); IMMATURE GRANULOCYTES 0.3 % (0-5); LYMPHOCYTE ABS# 0.91 10x3/uL (1.32-3.57); LYMPHOCYTES 9.2 % (15-50); MCH 31.3 pg (26.0-34.0); MCHC 33.9 g/dL (31.0-37.0); MCV 92.3 fL (80.0-100.0); MEAN PLATELET VOLUME 11.2 fL (7.4-10.4); MONOCYTES 1.9 % (2-11); NEUTROPHIL ABS# 8.79 10x3/uL (1.78-5.38); NEUTROPHILS 88.6 % (40-80); PLATELET COUNT 162 10x3/uL (130-400); RBC 4.28 10x6/uL (4.20-6.10); RDW 13.5 % (11.5-14.5); WBC 9.9 10x3/uL (4.8-10.8)
[2021-01-25] MEDS ORDERED: DECADRON4 MG PO (13:36)
[2021-01-25] MEDS ORDERED: DOXYCYCLINE HY100 M2 PO (13:37)
[2021-01-25 13:47] LABS: ANION GAP 14.4 mmol/L (8-16); CALCIUM 9.1 mg/dL (8.5-10.1); CARBON DIOXIDE 24.2 mmol/L (21.0-32.0); CREATININE - SERUM 1.5 mg/dL (0.6-1.3); POTASSIUM - SERUM 4.6 mmol/L (3.5-5.1)
[2021-01-25 14:01] LABS: ALBUMIN 3.8 g/dL (3.4-5.0); BILIRUBIN - TOTAL 0.53 mg/dL (0.2-1.3); PHOSPHOROUS 3.6 mg/dL (2.5-4.9); PROTEIN - SERUM 7.2 g/dL (6.4-8.2)
[2021-01-25 14:36] LABS: INR 1.39 (0.85-1.17)
[2021-01-25 14:37] LABS: PROTIME 15.8 SECONDS (11.6-15.0)
[2021-01-25 14:41] LABS: BILIRUBIN NEGATIVE (NEGATIVE); KETONE NEGATIVE (NEGATIVE); NITRITE NEGATIVE (NEGATIVE); UROBILINOGEN NORMAL mg/dL (< 2)
[2021-01-25 15:59] VITALS: BP 135/54
[2021-01-25 18:00] VITALS: BP 146/66; BMI 36.7
[2021-01-25 19:43] LABS: TROPONIN-I 0.017 ng/mL (0.000-0.060)
--- NOTE | 2021-01-25 19:58 | NUR ---
REPORT RECEIVED, WILL CONT POC. PT A&O, ANSWERED CL TO PT COMPLAINING OF CHEST PAIN. AUSCULATATED LUNG SOUNDS, LUNG SOUNDS CLEAR. VITALS 177/92 HR102 O2 92. PT COMPLAINS OF PAIN RADIATING TO LEFT JAW. EKG PERFORMED, SR WITH ST & T WAVE ABNORMALITIES. PLACED ORDERS FOR STAT CK AND TROPONIN. PAGED CARMEN HERNANDEZ. ORDERS FOR MORPHINE 4 MG Q4H GIVEN. ADMINISTERED MORPHINE TO PT. PAGED DR. THOMAS FOR CARDIOLOGY CONSULT. AWAITING RETURN CALL. BED LOCKED AND LOWERED, CL IN REACH. ASSESSMENT COMPLETE AT THIS TIME. WILL CONT TO MONITOR.
--- NOTE | 2021-01-25 22:47 | NUR ---
DAUGHTER MARY [phone]
[2021-01-26] VITALS (13 sets, daily range): BP systolic 111–151; BP diastolic 46–84; Ht 185.4 cm; Wt 126.1 kg
--- NOTE | 2021-01-26 01:30 | NUR ---
PT STATED TO THIS NURSE THAT HIS CHEST AND JAW PAIN HAS SUBSIDED. PAIN MED HELD PER PTS REQUEST. WILL CONT TO MONITOR.
[2021-01-26 05:35] LABS: BASOPHILS 0.2 % (0-2); EOSINOPHILS 1.1 % (0-7); HEMATOCRIT 39.4 % (42.0-54.0); IMMATURE GRANULOCYTES 0.4 % (0-5); LYMPHOCYTE ABS# 1.83 10x3/uL (1.32-3.57); LYMPHOCYTES 17.5 % (15-50); MCH 30.5 pg (26.0-34.0); MCV 92.5 fL (80.0-100.0); MEAN PLATELET VOLUME 11.2 fL (7.4-10.4); NEUTROPHIL ABS# 7.61 10x3/uL (1.78-5.38); NEUTROPHILS 72.8 % (40-80); PLATELET COUNT 137 10x3/uL (130-400); RBC 4.26 10x6/uL (4.20-6.10); RDW 13.6 % (11.5-14.5); WBC 10.4 10x3/uL (4.8-10.8)
[2021-01-26 05:54] LABS: ALBUMIN 3.5 g/dL (3.4-5.0); ANION GAP 11.4 mmol/L (8-16); BILIRUBIN - TOTAL 0.58 mg/dL (0.2-1.3); CALCIUM 8.7 mg/dL (8.5-10.1); CARBON DIOXIDE 26.9 mmol/L (21.0-32.0); CREATININE - SERUM 1.5 mg/dL (0.6-1.3); MAGNESIUM - SERUM 1.6 mg/dL (1.8-2.4); POTASSIUM - SERUM 4.3 mmol/L (3.5-5.1); PROTEIN - SERUM 6.3 g/dL (6.4-8.2)
--- NOTE | 2021-01-26 08:02 | NUR ---
PT RECEIVED AWAKE AND ALERT IN BED. INSTRUCTED ON NPO STATUS TILL SEEN BY CARDIO. STATES PAIN MUCH BETTER THAN BEFORE. IV ANTIBIOTICS INFUSING. FAMILY AT BEDSIDE.
--- NOTE | 2021-01-26 13:07 | NUR ---
OT NOTE: PT DOING WELL. REPORTS HAVING CHEST PAIN AND PAIN IN L ARM AND JAW LAST NIGHT. DTR REPORTS THAT HE IS GOING TO DIRECTOR OF FIELD SERVICE LATER. PT ABLE TO TREVIN SHOES AND SHIRT WHILE SITTING ON EOB WITHOUT ASSIST. IN ROOM AMBULATION WITH CGA. PHYS THERAPY AMB PT OUTSIDE OF ROOM WITHOUT AD AND PT PERFORMED WELL. WILL CONT TO TREAT FOR ADLS, SAFETY, AND ENDURANCE TRAINING. GUANAKO UP,OTR/L [phone]
[2021-01-26 13:50] LABS: CHOL - HDL RATIO 5.2 ratio (2.3-4.9); CREATININE - SERUM 1.6 mg/dL (0.6-1.3); LDL-HDL RATIO 2.1 ratio (1.5-3.5)
--- NOTE | 2021-01-26 14:41 | NUR ---
PT TO ROOM FROM [facility] PORTFOLIO LEADER. FEMSTOP TO RIGHT GROIN NOTED WITHOUT BLEEDING OR HEMATOMA. LAYING FLAT FOR FOUR HOURS. FAMILY IN ROOM. PT IS AWAKE AND ASKING FOR URINAL.
[2021-01-26 14:45] LABS: BASOPHILS 0.4 % (0-2); EOSINOPHILS 1.9 % (0-7); HEMATOCRIT 39.9 % (42.0-54.0); HEMOGLOBIN 13.5 g/dL (13.5-17.5); IMMATURE GRANULOCYTES 0.2 % (0-5); LYMPHOCYTE ABS# 2.13 10x3/uL (1.32-3.57); LYMPHOCYTES 21.2 % (15-50); MCH 31.5 pg (26.0-34.0); MCHC 33.8 g/dL (31.0-37.0); MCV 93.2 fL (80.0-100.0); MEAN PLATELET VOLUME 11.4 fL (7.4-10.4); MONOCYTES 7.1 % (2-11); NEUTROPHIL ABS# 6.96 10x3/uL (1.78-5.38); NEUTROPHILS 69.2 % (40-80); PLATELET COUNT 141 10x3/uL (130-400); RBC 4.28 10x6/uL (4.20-6.10); RDW 13.7 % (11.5-14.5); WBC 10.1 10x3/uL (4.8-10.8)
--- NOTE | 2021-01-26 19:30 | NUR ---
RECEIVED REPORT, WILL ASSUME CARE OF PT, EATING AND VISITING WITH FAMILY, DENIES ANY NEEDS AT THIS TIME, BED IS LOW, SRX2, CALL LIGHT IN REACH, WILL CONTINUE PLAN OF CARE
--- NOTE | 2021-01-27 02:26 | NUR ---
I have reviewed this patient and I concur with the Shift Assessment completed by the Licensed Practical Nurse today this shift.
[2021-01-27 04:00] VITALS: BP 123/69
[2021-01-27 04:35] LABS: BASOPHILS 0.5 % (0-2); EOSINOPHILS 2.4 % (0-7); HEMATOCRIT 40.5 % (42.0-54.0); HEMOGLOBIN 13.1 g/dL (13.5-17.5); IMMATURE GRANULOCYTES 0.2 % (0-5); LYMPHOCYTE ABS# 2.43 10x3/uL (1.32-3.57); LYMPHOCYTES 27.9 % (15-50); MCH 30.5 pg (26.0-34.0); MCHC 32.3 g/dL (31.0-37.0); MCV 94.2 fL (80.0-100.0); MEAN PLATELET VOLUME 10.8 fL (7.4-10.4); MONOCYTES 7.2 % (2-11); NEUTROPHIL ABS# 5.38 10x3/uL (1.78-5.38); NEUTROPHILS 61.8 % (40-80); PLATELET COUNT 135 10x3/uL (130-400); RDW 13.9 % (11.5-14.5); WBC 8.7 10x3/uL (4.8-10.8)
[2021-01-27 04:48] LABS: ALBUMIN 3.3 g/dL (3.4-5.0); BILIRUBIN - TOTAL 0.31 mg/dL (0.2-1.3); CALCIUM 8.5 mg/dL (8.5-10.1); CARBON DIOXIDE 27.1 mmol/L (21.0-32.0); CREATININE - SERUM 1.4 mg/dL (0.6-1.3); MAGNESIUM - SERUM 1.7 mg/dL (1.8-2.4); POTASSIUM - SERUM 4.1 mmol/L (3.5-5.1); PROTEIN - SERUM 6.1 g/dL (6.4-8.2)
[2021-01-27 08:48] VITALS: BP 130/58
[2021-01-27] MEDS ORDERED: PLAVIX75 MG PO (11:37)
[2021-01-27 12:17] VITALS: BP 130/70
--- NOTE | 2021-01-27 13:26 | NUR ---
SCRIPT FOR PLAVIX GIVEN TO PT.
--- NOTE | 2021-01-27 13:28 | MORECARE ---
CASE MANAGEMENT DISCHARGE SUMMARY PATIENT: ANITA VALADEZ UNIT: [id number] ADM DATE: 01/26/21 AGE: 85 : 33 SEX: M ROOM/BED: D.2123 AUTHOR: FLORADOC PHYSICIAN: REFERRING PHYSICIAN: RAH LAIRD DO DATE OF SERVICE: 01/27/21 Case Management Discharge Planning Summary DCP REVIEW SUMMARY ANTICIPATED D/C DATE: EXPECTED LOS : CASE STATUS: DCP Initiated INITIAL REVIEW: 01/27/2021 INITIAL REVIEWER: Skylar Montero FINAL DISCHARGE DISPOSITION: : FINAL REVIEWER: FINAL REVIEW DATE: DCP Focus Questions & Answers DCP REV -DCP Review Added on: 01/27/21 1:24 pm QUESTION: ANSWER DCP Screen High Risk Factors: : Hosp related to CHF, COPD, DM, End Stage Ds, CVA, CA DCP Evaluation Patient's ability to cope with chronic illness : d. No chronic illness Mental health screen: : No mental health history Would patient like to participate in any Care Coordination programs (if applicable): : Not applicable DCP Re-evaluation Would patient like to participate in any Care Coordination programs (if applicable): : Not applicable PATIENT: ANITA VALADEZ ENCOUNTER: [id number] MEDICAL RECORD#: [id number] ADMISSION DATE: 01/26/2021 DISCHARGE DATE: ATTENDING MD: RAH PIKE : AGE: 85 MARITAL STATUS: W DC PLAN ID: [id number] FACILITY: [facility] PRINTED ON: 01/27/21 13:28 CT All edits/amendments must be made on the electronic document DICTATION DATE: 01/27/21 1328 STEAMBOAT CAPTAIN: DM 01/27/21 1328 RPT#: [id number] DC DATE: STATUS: ADM IN [facility] [address] [place] [address] END OF REPORT
--- NOTE | 2021-01-27 13:41 | MORECARE ---
CASE MANAGEMENT DISCHARGE SUMMARY PATIENT: ANITA VALADEZ UNIT: [id number] ADM DATE: 01/26/21 AGE: 85 : 33 SEX: M ROOM/BED: D.2123 AUTHOR: KATRINA HINES PHYSICIAN: REFERRING PHYSICIAN: RAH LAIRD DO DATE OF SERVICE: 01/27/21 Case Management Discharge Planning Summary COMMENTS ENTERED DATE: 01/27/21 13:30 CT COMMENT TYPE: Discharge Planning REVIEWER: Skylar Montero CM met with patient and daughter in the room to discuss discharge planning/needs. Patient's PCP is Dr. Laird, but also used [facility]. He lives at [facility] in the [facility]. He states he is independent with his ADL's. States plan is to return home and denies further needs. [phone] Attn: Pact 35, which I will do. Daughter here to take home. No needs at this time. They will get his Plavix with Good Rx for 4 dollar. DCP REVIEW SUMMARY ANTICIPATED D/C DATE: EXPECTED LOS : CASE STATUS: DCP Initiated INITIAL REVIEW: 01/27/2021 INITIAL REVIEWER: Skylar Montero FINAL DISCHARGE DISPOSITION: : FINAL REVIEWER: FINAL REVIEW DATE: DCP Focus Questions & Answers DCP REV -DCP Review Added on: 01/27/21 1:24 pm QUESTION: ANSWER DCP Screen High Risk Factors: : Hosp related to CHF, COPD, DM, End Stage Ds, CVA, CA DCP Evaluation Patient's ability to cope with chronic illness : a. Adequate (0-3 ED visits in 6 mos., adequate financial resources, attends scheduled appts.) Mental health screen: : No mental health history Would patient like to participate in any Care Coordination programs (if applicable): : Not applicable Patient gives permission to discuss discharge plans with: (name, relationship and number) : Natasha Valadez - DTR - [phone] Physical Status: : Independent with ADL's Partial Dependence, assistance required for: : Ambulation / Mobility Baseline cognitive status: : *Oriented to person, place, situation, time and present Family / Caregiver's ability to cope with chronic illness: : a. Adequate (ability to meet patient's medical needs, ensures patient attends medical appts.) Living Arrangements: : Other Living arrangements comments: : Lives at [facility] in [facility] Facility / Agency name and contact information from Question 3 (if applicable): : [place] Medication Management: : Patient states can afford medications Pharmacy name(s): : [facility] Does Patient have transportation to get home and to follow-up medical appointments when discharged from the hospital? : Yes Comments: : Daughter to take home today. Does the patient have electricity at home? : Yes Does the patient have running water in their house? : Yes Equipment in use: : Cane - Single Leg Equipment in use: : Glucometer Equipment in use: : Walker - Rollator Resources / Services in place: : None Patient's current cognitive status: : *Oriented to person, place, situation, time and present Functional screen assessment: : No issues identified Patient with capacity for self-care or can be cared for in same environment as prior to hospitalization? : Yes Preadmission facility can/cannot provide post hospital level of care needs: : Can - at same level of care as preadmission Family / Caregiver's ability to cope with chronic illness: : a. Adequate (ability to meet patient's medical needs, ensures patient attends medical appts.) Does the patient have the ability to pay for or attain post discharge needs / services? : Yes Is there a likelihood that the patient will require additional services to return to the preadmission environment? : No Results of this evaluation have been discussed with: : Family Results of this evaluation have been discussed with: : Patient Patient and/or caregiver agree upon recommended discharge plan? : Yes Equipment needed for post hospitalization: : None Physical environment modification needed / anticipated for discharge: : No Planned post hospital services available for patient? : N/A Planned post hospital services covered by insurance plan? : N/A DCP Re-evaluation Would patient like to participate in any Care Coordination programs (if applicable): : Not applicable PATIENT: ANITA VALADEZ ENCOUNTER: [id number] MEDICAL RECORD#: [id number] ADMISSION DATE: 01/26/2021 DISCHARGE DATE: ATTENDING MD: RAH PIKE : AGE: 85 MARITAL STATUS: W DC PLAN ID: [id number] FACILITY: [facility] PRINTED ON: 01/27/21 13:41 CT All edits/amendments must be made on the electronic document DICTATION DATE: 01/27/21 1341 BAKELITE MOLDER: LUZMA 01/27/21 1341 RPT#: [id number] DC DATE: STATUS: ADM IN [facility] [address] [place] [address] END OF REPORT
--- NOTE | 2021-01-27 14:42 | NUR ---
DISCHARGE INSTRUCTIONS REVIEWED WITH PT AND FAMILY. SCRIPT FOR PLAVIX IN HAND. IV REMOVED. TELEMETRY REMOVED.
--- NOTE | 2021-01-27 15:19 | MORECARE ---
CASE MANAGEMENT DISCHARGE SUMMARY PATIENT: ANITA VALADEZ UNIT: [id number] ADM DATE: 01/26/21 AGE: 85 : 33 SEX: M ROOM/BED: D.3043 AUTHOR: FLORADOC PHYSICIAN: REFERRING PHYSICIAN: RAH LAIRD DO DATE OF SERVICE: 01/27/21 Case Management Discharge Planning Summary CT Patient Name: ANITA VALADEZ Attending MD : RAH AREVALO Medical Record: [id number] Encounter : [id number] Facility : [address] [place] [address] Medical Admission Date : 112:05 Center Discharge Date : 01/27/[address] [place] [address] Date of : DC Plan ID : [id number] Age/Sex/Martia : 85/ M/W Printed on : 01/27/21 15:18 CT DCP Review Details Anticipated D/C: Expected LOS : Case Status : INITIATED - Initial Reviewe: [id number] - Skylar Montero Initial Review: 01/27/2021 Planned Disposi: 01 - Home or Self Care (Routine Discharge) Final Discharge: - Final Reviewer : : Final Review : Comments CT Entered Date Type Reviewer 01/27/21 13:30 CT Discharge Planning Skylar Montero Comment CM met with patient and daughter in the room to discuss discharge planning/needs. Patient's PCP is Dr. Laird, but also used [facility]. He lives at [facility] in the [facility]. He states he is independent with his ADL's. States plan is to return home and denies further needs. He asks me [facility] [phone] Attn: Pact 35, which I will do. Daughter here to take home. No needs at this time. They will get his Plavix with Good Rx for 4 dollar. DCP Focus Questions & Answers DCP Screen High Risk Factors: Hosp related to CHF, COPD, DM, End Stage Ds, CVA, CA DCP Evaluation Patient and/or caregiver agree upon recommended Yes discharge plan? Family / Caregiver's ability to cope with chronic a. Adequate (ability to meet patient's illness: medical needs, ensures patient attends medical appts.) Patient's current cognitive status: *Oriented to person, place, situation, time and present Patient gives permission to discuss discharge Natasha Valadez - [facility] - [phone] plans with: (name, relationship and number) Patient's ability to cope with chronic illness a. Adequate (0-3 ED visits in 6 mos., adequate financial resources, attends scheduled appts.) Does the patient have the ability to pay for or Yes attain post discharge needs / services? Functional screen assessment: No issues identified Family / Caregiver's ability to cope with chronic a. Adequate (ability to meet patient's illness: medical needs, ensures patient attends medical appts.) Physical Status: Independent with ADL's Equipment needed for post hospitalization: None Is there a likelihood that the patient will No require additional services to return to the preadmission environment? Living Arrangements: Other Partial Dependence, assistance required for: Ambulation / Mobility Results of this evaluation have been discussed Patient with: Results of this evaluation have been discussed Family with: Patient with capacity for self-care or can be Yes cared for in same environment as prior to hospitalization? Living arrangements comments: Lives at [facility] in the [facility] Baseline cognitive status: *Oriented to person, place, situation, time and present Physical environment modification needed / No anticipated for discharge: Preadmission facility can/cannot provide post Can - at same level of care as preadmission hospital level of care needs: Facility / Agency name and contact information [facility] from Question 3 (if applicable): Medication Management: Patient states can afford medications Planned post hospital services available for N/A patient? Pharmacy name(s): [facility] Planned post hospital services covered by N/A insurance plan? Does Patient have transportation to get home and Yes to follow-up medical appointments when discharged from the hospital? Comments: Daughter to take home today. Would patient like to participate in any Care Not applicable Coordination programs (if applicable): Does the patient have electricity at home? Yes Does the patient have running water in their Yes house? Equipment in use: Walker - Rollator Equipment in use: Glucometer Equipment in use: Cane - Single Leg Mental health screen: No mental health history Resources / Services in place: None DCP Re-evaluation Would patient like to participate in any Care Not applicable Coordination programs (if applicable): [facility] ANITA VALADEZ MR#: [id number] /Age/Sex/Yxhrjk4-Nol-78 /85/M /W Attending Physician Name: RAH LAIRD [id number] Patient Account:[id number] [facility] Page -1 of 1 All edits/amendments must be made on the electronic document DICTATION DATE: 01/27/211517 DOPE DRY HOUSE OPERATOR: LUZMA 01/27/211517 RPT#: [id number] DC DATE:01/27/21 STATUS: DIS IN [facility] [address] [place] [address] END OF REPORT
--- NOTE | 2021-01-27 15:31 | NUR ---
WALKED 250 FT MIN ASSIT
--- NOTE | 2021-01-27 16:22 | NUR ---
OT NOTE: PT COMPLETED SUPINE TO SIT WITH SBA. PT COMPLETED EOB SITTING BALANCE WITH SBA DURING FUNCTIONAL TASKS. PT COMPLETED SIT TO STAND WITH CGA. PT COMPLETED TREVIN/DOFF SHOES WITH SBA. PT COMPLETED FACE AND HAND HYGIENE WITH SETUP. PT DID WELL. [phone] THANK YOU,TRAN PULIDO
--- NOTE | 2021-01-28 16:23 | MORECARE ---
CASE MANAGEMENT DISCHARGE SUMMARY PATIENT: ANITA VALADEZ UNIT: [id number] ADM DATE: 01/26/21 AGE: 85 : 33 SEX: M ROOM/BED: D.2123 AUTHOR: FLORA,DOC PHYSICIAN: REFERRING PHYSICIAN: RAH LAIRD DO DATE OF SERVICE: 01/28/21 Case Management Discharge Planning Summary CT Patient Name: ANITA VALADEZ Attending MD : RAH AREVALO Medical Record: [id number] Encounter : [id number] Facility : [address] [place] [address] Medical Admission Date : 112:05 Center Discharge Date : 01/27/[address] [place] [address] Date of : DC Plan ID : [id number] Age/Sex/Martia : 85/ M/W Printed on : 01/28/21 16:22 CT DCP Review Details Anticipated D/C: Expected LOS : Case Status : COMPLET - Initial Reviewe: [id number] - Skylar Montero Initial Review: 01/27/2021 Planned Disposi: 01 - Home or Self Care (Routine Discharge) Final Discharge: 95 - Discharged/Trans to another type of health care institution not defined elsewhere in this code Final Reviewer : [id number] : Skylar Montero Final Review : 01/28/[address] Entered Date Type Reviewer 01/27/21 13:30 CT Discharge Planning Skylar Montero Comment CM met with patient and daughter in the room to discuss discharge planning/needs. Patient's PCP is Dr. Laird, but also used [facility]. He lives at [facility] in the [facility]. He states he is independent with his ADL's. States plan is to return home and denies further needs. He [facility] [phone] Attn: Pact 35, which I will do. Daughter here to take home. No needs at this time. They will get his Plavix with Good Rx for 4 dollar. DCP Focus Questions & Answers DCP Screen High Risk Factors: Hosp related to CHF, COPD, DM, End Stage Ds, CVA, CA DCP Evaluation Patient's ability to cope with chronic illness a. Adequate (0-3 ED visits in 6 mos., adequate financial resources, attends scheduled appts.) Patient gives permission to discuss discharge Natasha Valadez [facility] - [phone] plans with: (name, relationship and number) Patient's current cognitive status: *Oriented to person, place, situation, time and present Family / Caregiver's ability to cope with chronic a. Adequate (ability to meet patient's illness: medical needs, ensures patient attends medical appts.) Patient and/or caregiver agree upon recommended Yes discharge plan? Physical Status: Independent with ADL's Family / Caregiver's ability to cope with chronic a. Adequate (ability to meet patient's illness: medical needs, ensures patient attends medical appts.) Functional screen assessment: No issues identified Does the patient have the ability to pay for or Yes attain post discharge needs / services? Partial Dependence, assistance required for: Ambulation / Mobility Living Arrangements: Other Is there a likelihood that the patient will No require additional services to return to the preadmission environment? Equipment needed for post hospitalization: None Baseline cognitive status: *Oriented to person, place, situation, time and present Living arrangements comments: Lives at [facility] in [facility] Patient with capacity for self-care or can be Yes cared for in same environment as prior to hospitalization? Results of this evaluation have been discussed Family with: Results of this evaluation have been discussed Patient with: Facility / Agency name and contact information [facility] from Question 3 (if applicable): Preadmission facility can/cannot provide post Can - at same level of care as preadmission hospital level of care needs: Physical environment modification needed / No anticipated for discharge: Medication Management: Patient states can afford medications Pharmacy name(s): [id number] [place] Planned post hospital services available for N/A patient? Does Patient have transportation to get home and Yes to follow-up medical appointments when discharged from the hospital? Planned post hospital services covered by N/A insurance plan? Would patient like to participate in any Care Not applicable Coordination programs (if applicable): Comments: Daughter to take home today. Does the patient have electricity at home? Yes Does the patient have running water in their Yes house? Equipment in use: Cane - Single Leg Equipment in use: Glucometer Equipment in use: Walker - Rollator Mental health screen: No mental health history Resources / Services in place: None DCP Re-evaluation Would patient like to participate in any Care Not applicable Coordination programs (if applicable): [facility] ANITA VALADEZ MR#: [id number] /Age/Sex/Tutldb7-Mtr-65 /85/M /W Attending Physician Name: RAH LAIRD [id number] Patient Account:[id number] [facility] Page -1 of 1 All edits/amendments must be made on the electronic document DICTATION DATE: 01/28/211621 LITHOGRAPH PRINTER: LUZMA 01/28/211621 RPT#: [id number] DC DATE:01/27/21 STATUS: DIS IN [facility] [address] [place] [address] END OF REPORT
--- NOTE | 2021-01-30 10:42 | EC ---
PATIENT:ANITA VALADEZ DATE OF SERVICE: 01/26/21 SEX: M MEDICAL RECORD: [id number] DATE OF : 31 LOCATION:D.M2 D.212 AGE OF PATIENT: 85 ADMISSION DATE: 01/26/21 REFERRING PHYSICIAN: INTERPRETING PHYSICIAN: KJ SALAZAR MD ECHOCARDIOGRAM REPORT ECHO CHARGES 4 ECHO COMPLETE Date: 01/26/21 CLINICAL DIAGNOSIS: CAD, TAVR ECHOCARDIOGRAPHIC MEASUREMENTS (adult normal given) AC root (d.<3.7cm) 2.2 cm LV Septum d (<1.2 cm> 1.2 cm Valve Excursion 1.2 cm LV Septum (systole) 1.4 cm Left Atria (s.<4.0cm> 4.5 cm LVPW d(<1.2cm) 1.0 cm RV (d.<2.3cm) 2.9 cm LVPW (sytole) 1.1 cm LV diastole(<5.6CM) 5.3 cm MV E-F(>70mm/sec) cm LV systole 4.4 cm LVOT Diameter 1.5 cm MV exc.(>10mm) cm Est.ejection fraction (50-75%) % DOPPLER: LVIT cm/sec A 138 cm/sec E 113 cm/sec LA cm/sec RVSP 16 mmHg LVOT 136 cm/sec AOP1/2T m/s Asc. Ao 231 cm/sec RVOT 87 cm/sec RA cm/sec PA 95 cm/sec AV Gradient Peak 21.4 mmHg AV Mean 14.7 mmHg AV Area 1.0 cm MV Gradient Peak 10.5 mmHg MV Mean 4.6 mmHg MV Area cm COMMENTS: Conservation Science Officer: Mar[facility] Accounts Receivable Coordinator: 3 Dr. Beyer TAPE# Pericardial Effusion N DATE OF SERVICE: Adequate 2D, color flow imaging, spectral Doppler, and M-Mode. FINDINGS: No LVH. LV internal dimension is normal. Wall motion is normal. EF is greater than or equal to 55%. Prosthetic tissue aortic valve was present post-TAVR. Peak gradient 21 mmHg putting this in mild range only. No significant AI. Left atrium is dilated at 4.5 cm. Mitral valve shows no prolapse. Trace MR. Right side is grossly normal. Trace TR. ECHOCARDIOGRAM REPORT [id number] ANITA VALADEZ TRANSINT:[id number] Voice Confirmation ID: [id number] DOCUMENT ID: [id number] KJ SALAZAR MD at 1042 CC: [id number] DICTATION DATE: 01/26/21 1257 NETWORK ARCHITECT MANAGER: 01/26/21 1313 DIS IN 01/27/21 [place] [id number] [place] [id number]
--- NOTE | 2021-01-30 10:43 | CN ---
PATIENT NAME:ANITA VALADEZ MEDICAL RECORD: [id number] : 31 LOCATION:. D.2123 ADMIT DATE: 01/26/21 ACCOUNT: [id number] CONSULTING PHYSICIAN: KJ SALAZAR MD REFERRING PHYSICIAN: RAH LAIRD DO DATE OF CONSULTATION: 01/26/2021 HISTORY OF PRESENT ILLNESS: An 85-year-old gentleman well known to me with a history of coronary artery disease as well as aortic valve disease status post TAVR, previously had intervention of the LAD, admitted with upper respiratory tract infection, had severe angina a day before and day of admission, had rest symptomatology last night with EKG changes. Enzymes are negative so far. It is certainly concerning for rapid progressive angina, acute coronary syndrome. We are asked to see him concerning his cardiovascular status. PAST MEDICAL HISTORY: Includes; 1. History of hypertension. 2. Aortic valve disease status post TAVR. 3. Dyslipidemia. 4. Cardiomyopathy, improved post-intervention. 5. Diabetes mellitus. MEDICATIONS: Include insulin 12 units subQ t.i.d., omeprazole 20 every day, Neurontin 300 b.i.d., aspirin 81 every day, losartan 25 every day, fenofibrate 48 every day, atorvastatin 10 every day. ALLERGIES: PENICILLIN. SOCIAL HISTORY: Nonsmoker, nondrinker. He is able to take care of all his ADLs. Good family support. Does try to walk on a regular basis. REVIEW OF SYSTEMS: The patient reports easy bruising but reports no swollen glands. The patient reports no fever, no night sweats, no significant weight gain, no significant weight loss. No significant exercise tolerance. The patient reports no dry eyes, no irritation, no vision change. Patient reports no difficulty hearing and no ear pain. Patient reports no frequent nose bleeds or nose and sinus problems. Patient reports on arm pain on exertion. No shortness of breath while lying down. No history of heart murmur. Patient reports no cough, no wheezing or coughing up blood. Patient reports no abdominal pain, no vomiting. Normal appetite. No diarrhea and not vomiting blood. No nausea and no constipation. Patient reports no incontinence. No difficulty urinating. No hematuria. No increased frequency. Patient reports no muscle aches. No weakness, no arthralgias, no back pain. No swelling of the extremities. Patient reports no abnormal mole, no jaundice, no rashes. Reports no loss of consciousness. No weakness and no numbness. No seizures, dizziness, or headaches. The patient reports no depression, no sleep disturbance, feeling safe in a relationship and no alcohol abuse. Patient reports on fatigue. Reports no runny nose or sinus pressure. No itching, no hives, and no frequent sneezing. PHYSICAL EXAMINATION: GENERAL: Pleasant, no acute distress, appears stated age. VITAL SIGNS: Blood pressure 116/64, pulse 54. HEENT: Normocephalic, atraumatic. NECK: No bruits are noted. CONSULT REPORT [id number] ANITA VALADEZ HEART: Regular, II/ systolic ejection murmur. Questionable S3 gallop. LUNGS: Good air excursion. ABDOMEN: Soft and nontender. EXTREMITIES: Pulses were preserved, 2+, with no edema. IMPRESSION: Acute coronary syndrome, known underlying disease, multiple risk factors. PLAN: For angiography and intervention based on the above. TRANSINT:[id number] Voice Confirmation ID: [id number] DOCUMENT ID: [id number] KJ SALAZAR MD at 1043 CC: [id number] DICTATION DATE: 01/26/21 1244 BUGGY LADLE TENDER: 01/26/21 1259 DIS IN 01/27/21 [facility] [address] [place] [address]
== END 2021-01-27 14:43 | disposition home or self-care (01) | DRG 250 ==
LOC: OBSVTIME 12:24 → D.M2 12:24
PROVIDERS: Family Medicine; Internal Medicine Interventional Cardiology; ADMIT Family Medicine; ATTEND Family Medicine
PROC: B2111ZZ Fluoroscopy of Multiple Coronary Arteries using Low Osmolar Contrast (ICD-10-PCS; 2021-01-26)
PROC: B2151ZZ Fluoroscopy of Left Heart using Low Osmolar Contrast (ICD-10-PCS; 2021-01-26)
PROC: 02703ZZ Dilation of Coronary Artery, One Artery, Percutaneous Approach (ICD-10-PCS; principal; 2021-01-26 13:04)
PROC: 4A023N7 Measurement of Cardiac Sampling and Pressure, Left Heart, Percutaneous Approach (ICD-10-PCS; 2021-01-26 13:04)
DX: I25.110 Atherosclerotic heart disease of native coronary artery with unstable angina pectoris (principal); J18.9 Pneumonia, unspecified organism; J98.11 Atelectasis; Z79.01 Long term (current) use of anticoagulants; E11.22 Type 2 diabetes mellitus with diabetic chronic kidney disease; I12.9 Hypertensive chronic kidney disease with stage 1 through stage 4 chronic kidney disease, or unspecified chronic kidney disease; N18.9 Chronic kidney disease, unspecified; J43.9 Emphysema, unspecified; J40 Bronchitis, not specified as acute or chronic; Z86.711 Personal history of pulmonary embolism; Z86.718 Personal history of other venous thrombosis and embolism

== ENCOUNTER 2021-05-03 13:58 | Observation (INO) | payer MEDICARE, BC ==
[~2021-05-03] VITALS: Ht 188 cm; Wt 123.4 kg
[~2021-05-03 13:58] MED LIST changes: +DECADRON4 MG PO; +DOXYCYCLINE HY100 M2 PO
[2021-05-03 14:37] VITALS: BP 116/56; Ht 188 cm; Wt 123.4 kg
[2021-05-03 15:00] VITALS: BP 136/67
[2021-05-03 15:22] LABS: EOSINOPHILS 3.1 % (0-7); HEMATOCRIT 43.9 % (42.0-54.0); HEMOGLOBIN 14.7 g/dL (13.5-17.5); LYMPHOCYTES 25.3 % (15-50); MCH 30.7 pg (26.0-34.0); MCHC 33.5 g/dL (31.0-37.0); MCV 91.6 fL (80.0-100.0); MEAN PLATELET VOLUME 9.7 fL (7.4-10.4); MONOCYTES 6.6 % (2-11); RBC 4.79 10x6/uL (4.20-6.10); RDW 13.8 % (11.5-14.5); WBC 9.8 10x3/uL (4.8-10.8)
[2021-05-03 15:31] LABS: PLATELET COUNT 177 10x3/uL (130-400)
[2021-05-03 15:52] LABS: ALBUMIN 4.2 g/dL (3.4-5.0); ALKALINE PHOSPHATASE 96 U/L (30-120); ALT (SGPT) 32 U/L (10-68); BILIRUBIN - TOTAL 0.44 mg/dL (0.2-1.3); CALCIUM 9.1 mg/dL (8.5-10.1); CARBON DIOXIDE 26.1 mmol/L (21.0-32.0); CHLORIDE - SERUM 103 mmol/L (98-107); CREATINE KINASE 51 UL (21-232); CREATININE - SERUM 1.5 mg/dL (0.6-1.3); MAGNESIUM - SERUM 1.9 mg/dL (1.8-2.4); PHOSPHOROUS 3.6 mg/dL (2.5-4.9); POTASSIUM - SERUM 4.4 mmol/L (3.5-5.1); PRO BNP 167 pg/mL (0-450); PROTEIN - SERUM 7.4 g/dL (6.4-8.2); SODIUM 138 mmol/L (136-145); UREA NITROGEN 34 mg/dL (7-18); eGFR NON AFRICAN AMERICAN 47 mL/min (90-120)
[2021-05-03 15:59] LABS: CALC OSMOLALITY 286 mosm/kg (275-300); GLUCOSE 156 mg/dL (74-106); TROPONIN-I < 0.017 ng/mL (0.000-0.060)
[2021-05-03 21:22] VITALS: BP 140/63
[2021-05-03 23:53] VITALS: BP 133/65
--- NOTE | 2021-05-04 02:56 | NUR ---
REPORT RECEIVED. PT A&O, UP IN BED WITH SON AT BEDSIDE. NO S/S OF DISTRESS OBSERVED. RR EVEN & UNLABORED ON RA. IV TO R FA SL. SR 73 ON TELE. BED LOCKED AND LOWERED, CL IN REACH. WILL CONT POC.
[2021-05-04 05:24] VITALS: BP 129/62
[2021-05-04 08:04] LABS: BASOPHILS 0.7 % (0-2); HEMATOCRIT 44.5 % (42.0-54.0); LYMPHOCYTES 26.6 % (15-50); MCHC 33.8 g/dL (31.0-37.0); MCV 91.9 fL (80.0-100.0); MEAN PLATELET VOLUME 9.4 fL (7.4-10.4); NEUTROPHILS 61.7 % (40-80); PLATELET COUNT 168 10x3/uL (130-400); RBC 4.84 10x6/uL (4.20-6.10); RDW 13.9 % (11.5-14.5); WBC 7.6 10x3/uL (4.8-10.8)
[2021-05-04 08:17] LABS: ALBUMIN 4.2 g/dL (3.4-5.0); BILIRUBIN - TOTAL 0.71 mg/dL (0.2-1.3); CALCIUM 9.3 mg/dL (8.5-10.1); CARBON DIOXIDE 28.4 mmol/L (21.0-32.0); CREATININE - SERUM 1.3 mg/dL (0.6-1.3); MAGNESIUM - SERUM 1.9 mg/dL (1.8-2.4); POTASSIUM - SERUM 4.4 mmol/L (3.5-5.1); PROTEIN - SERUM 7.5 g/dL (6.4-8.2)
--- NOTE | 2021-05-04 08:17 | NUR ---
CALLED DR HARRIS TO CLARIFY ORDERS FOR MRI/MRA BRAIN. ONLY MRA BRAIN WAS ORDERED AND NOTES LOOK LIKE HE WANTED A MR BRAIN WELL. HE DID INDEED WANT A MR BRAIN AND A MRA BRAIN AND NECK. ORDER ENTERED INTO THE SYSTEM.
[2021-05-04 09:00] VITALS: BP 126/67
[2021-05-04] MEDS ORDERED: PLAVIX75 MG PO (11:05)
== END 2021-05-04 13:29 | disposition home or self-care (01) ==
LOC: D.M2 13:58 → OBSVTIME 14:01 → D.M2 23:46
PROVIDERS: Family Medicine; ADMIT Family Medicine; ATTEND Family Medicine
DX: I65.01 Occlusion and stenosis of right vertebral artery (principal); E11.9 Type 2 diabetes mellitus without complications; I25.10 Atherosclerotic heart disease of native coronary artery without angina pectoris; E78.5 Hyperlipidemia, unspecified; I10 Essential (primary) hypertension; K21.9 Gastro-esophageal reflux disease without esophagitis